=== PATIENT | female | born 1955 | race Caucasian/White ===

== ENCOUNTER 2021-05-29 13:17 | Observation (INO) | payer MEDICARE, OTHER ==
--- NOTE | 2021-05-29 15:35 | ED ---
General Adult HPI - General Chief complaint: GI Bleed Stated complaint: Abd pain,Constipation Source: patient, RN notes reviewed, old records reviewed Mode of arrival: ambulatory Limitations: no limitations - History of Present Illness Initial comments: 65-year-old female presents with 3 days of bright red rectal bleeding. Patient states that with each bowel movement a proximally 3 times daily she's having bright red blood and clots. Patient states she had a colonoscopy about 15 years ago. She has no previous issues with gastrointestinal bleeding. She does report some generalized abdominal pain and cramping. No measured fever but she's felt chilled. She's had no vomiting. No upper abdominal pain or chest pain. No anticoagulation. - Related Data Home Medications Medication Instructions Recorded Confirmed Chlorthalidone [Hygroton] 25 mg PO DAILY 05/29/21 05/29/21 FLUoxetine HCL 40 mg PO DAILY 05/29/21 05/29/21 Fexofenadine HCl [Luisana Allergy] 180 mg PO DAILY 05/29/21 05/29/21 Levothyroxine Sodium [Synthroid] 50 mcg PO DAILY 05/29/21 05/29/21 Losartan Potassium [Cozaar] 100 mg PO DAILY 05/29/21 05/29/21 Meloxicam 15 mg PO DAILY 05/29/21 05/29/21 Montelukast [Singulair] 10 mg PO HS 05/29/21 05/29/21 Multivitamin/Iron/Folic Acid 1 tab PO DAILY 05/29/21 05/29/21 [Centrum Complete Multivit Tab] Omeprazole [PriLOSEC] 20 mg PO BID 05/29/21 05/29/21 amLODIPine [Norvasc] 5 mg PO DAILY 05/29/21 05/29/21 buPROPion [Wellbutrin] 75 mg PO BID 05/29/21 05/29/21 Allergies Allergy/AdvReac Type Severity Reaction Status Date / Time cefaclor [From [facility]] Allergy Rash/Hives Verified 05/29/21 15:51 Penicillins Allergy Rash/Hives Verified 05/29/21 15:51 Review of Systems ROS Statement: Those systems with pertinent positive or pertinent negative responses have been documented in the HPI. ROS Other: All systems not noted in ROS Statement are negative. Past Medical History Past Medical History: Hypertension History of Any Multi-Drug Resistant Organisms: None Reported Past Surgical History: Cholecystectomy, Hysterectomy, Joint Replacement, Tonsillectomy Past Psychological History: Anxiety, Depression Smoking Status: Never smoker Past Alcohol Use History: Daily Past Drug Use History: None Reported General Exam Limitations: no limitations General appearance: alert, in no apparent distress Head exam: Present: atraumatic, normocephalic Eye exam: Present: normal appearance, PERRL ENT exam: Present: normal exam Neck exam: Present: normal inspection Respiratory exam: Present: normal lung sounds bilaterally. Absent: respiratory distress, wheezes Cardiovascular Exam: Present: regular rate, normal rhythm GI/Abdominal exam: Present: soft, tenderness (Mild tenderness). Absent: distended, guarding, rebound Extremities exam: Present: normal inspection, normal capillary refill. Absent: pedal edema Back exam: Present: normal inspection Neurological exam: Present: alert, oriented X3, CN II-XII intact. Absent: motor sensory deficit Psychiatric exam: Present: normal affect, normal mood Skin exam: Present: warm, dry, intact. Absent: cyanosis, diaphoretic Course Vital Signs 05/29/21 13:49 Temperature 97.4 F L Pulse Rate 94 Respiratory 18 Rate Blood Pressure 132/70 O2 Sat by Pulse 99 Oximetry Medical Decision Making - Medical Decision Making 65-year-old female presenting with multiple episodes of bright red rectal bleeding. Patient does have some abdominal pain, CT is performed showing diverticulosis, no other acute findings. Patient has a hemoglobin 10.6. She has a sodium 127. Hemoglobin will be monitored closely, repeat has been ordered. She will be admitted to internal medicine with gastric neurology on consultation. Case discussed with Connie huertas for [facility]. - Lab Data Result diagrams: 05/29/21 15:47 05/29/21 15:47 Lab Results 05/29/21 05/29/21 05/29/21 Range/Units 15:46 15:47 15:47 WBC 9.7 (3.8-10.6) k/uL RBC 3.10 L (3.80-5.40) m/uL Hgb 10.6 L (11.4-16.0) gm/dL Hct 31.0 L (34.0-46.0) % MCV 99.8 (80.0-100.0) fL MCH 34.1 (25.0-35.0) pg MCHC 34.1 (31.0-37.0) g/dL RDW 12.1 (11.5-15.5) % Plt Count 331 (150-450) k/uL MPV 8.4 Neutrophils % 70 % Lymphocytes % 18 % Monocytes % 5 % Eosinophils % 4 % Basophils % 0 % Neutrophils # 6.8 (1.3-7.7) k/uL Lymphocytes # 1.8 (1.0-4.8) k/uL Monocytes # 0.5 (0-1.0) k/uL Eosinophils # 0.4 (0-0.7) k/uL Basophils # 0.0 (0-0.2) k/uL PT 10.1 (9.0-12.0) sec INR 0.9 (<1.2) APTT 16.4 L (22.0-30.0) sec Sodium (137-145) mmol/L Potassium (3.5-5.1) mmol/L Chloride (98-107) mmol/L Carbon Dioxide (22-30) mmol/L Anion Gap mmol/L BUN (7-17) mg/dL Creatinine (0.52-1.04) mg/dL Est GFR (CKD-EPI)AfAm (>60 ml/min/1.73 sqM) Est GFR (CKD-EPI)NonAf (>60 ml/min/1.73 sqM) Glucose (74-99) mg/dL Plasma Lactic Acid Patel (0.7-2.0) mmol/L Calcium (8.4-10.2) mg/dL Magnesium (1.6-2.3) mg/dL Total Bilirubin (0.2-1.3) mg/dL AST (14-36) U/L ALT (4-34) U/L Alkaline Phosphatase (38-126) U/L Total Protein (6.3-8.2) g/dL Albumin (3.5-5.0) g/dL Blood Type AB Positive Blood Type Confirm Blood Type Recheck Bld Type Recheck Status Antibody Screen NEGATIVE Spec Expiration Date 05/29/21 05/29/21 05/29/21 Range/Units 15:47 15:47 15:47 WBC (3.8-10.6) k/uL RBC (3.80-5.40) m/uL Hgb (11.4-16.0) gm/dL Hct (34.0-46.0) % MCV (80.0-100.0) fL MCH (25.0-35.0) pg MCHC (31.0-37.0) g/dL RDW (11.5-15.5) % Plt Count (150-450) k/uL MPV Neutrophils % % Lymphocytes % % Monocytes % % Eosinophils % % Basophils % % Neutrophils # (1.3-7.7) k/uL Lymphocytes # (1.0-4.8) k/uL Monocytes # (0-1.0) k/uL Eosinophils # (0-0.7) k/uL Basophils # (0-0.2) k/uL PT (9.0-12.0) sec INR (<1.2) APTT (22.0-30.0) sec Sodium 127 L (137-145) mmol/L Potassium 3.8 (3.5-5.1) mmol/L Chloride 94 L (98-107) mmol/L Carbon Dioxide 21 L (22-30) mmol/L Anion Gap 12 mmol/L BUN 28 H (7-17) mg/dL Creatinine 1.04 (0.52-1.04) mg/dL Est GFR (CKD-EPI)AfAm 65 (>60 ml/min/1.73 sqM) Est GFR (CKD-EPI)NonAf 56 (>60 ml/min/1.73 sqM) Glucose 114 H (74-99) mg/dL Plasma Lactic Acid Patel 1.3 (0.7-2.0) mmol/L Calcium 9.8 (8.4-10.2) mg/dL Magnesium 1.7 (1.6-2.3) mg/dL Total Bilirubin 0.6 (0.2-1.3) mg/dL AST 41 H (14-36) U/L ALT 32 (4-34) U/L Alkaline Phosphatase 85 (38-126) U/L Total Protein 7.5 (6.3-8.2) g/dL Albumin 4.5 (3.5-5.0) g/dL Blood Type Blood Type Confirm Blood Type Recheck No Previous Record Bld Type Recheck Status CABO Indicated Antibody Screen Spec Expiration Date 06/01/2021234605/29/21 Range/Units 15:48 WBC (3.8-10.6) k/uL RBC (3.80-5.40) m/uL Hgb (11.4-16.0) gm/dL Hct (34.0-46.0) % MCV (80.0-100.0) fL MCH (25.0-35.0) pg MCHC (31.0-37.0) g/dL RDW (11.5-15.5) % Plt Count (150-450) k/uL MPV Neutrophils % % Lymphocytes % % Monocytes % % Eosinophils % % Basophils % % Neutrophils # (1.3-7.7) k/uL Lymphocytes # (1.0-4.8) k/uL Monocytes # (0-1.0) k/uL Eosinophils # (0-0.7) k/uL Basophils # (0-0.2) k/uL PT (9.0-12.0) sec INR (<1.2) APTT (22.0-30.0) sec Sodium (137-145) mmol/L Potassium (3.5-5.1) mmol/L Chloride (98-107) mmol/L Carbon Dioxide (22-30) mmol/L Anion Gap mmol/L BUN (7-17) mg/dL Creatinine (0.52-1.04) mg/dL Est GFR (CKD-EPI)AfAm (>60 ml/min/1.73 sqM) Est GFR (CKD-EPI)NonAf (>60 ml/min/1.73 sqM) Glucose (74-99) mg/dL Plasma Lactic Acid Patel (0.7-2.0) mmol/L Calcium (8.4-10.2) mg/dL Magnesium (1.6-2.3) mg/dL Total Bilirubin (0.2-1.3) mg/dL AST (14-36) U/L ALT (4-34) U/L Alkaline Phosphatase (38-126) U/L Total Protein (6.3-8.2) g/dL Albumin (3.5-5.0) g/dL Blood Type Blood Type Confirm AB Positive Blood Type Recheck Bld Type Recheck Status Antibody Screen Spec Expiration Date Disposition Clinical Impression: Gastrointestinal hemorrhage Disposition: ADMITTED IP TO THIS [facility] Condition: Stable Is patient prescribed a controlled substance at d/c from ED?: No Referrals: None,Stated [Primary Care Provider] - 1-2 days Decision to Admit Reason: Admit from EC Decision Date: 05/29/21 Decision Time: 18:07
[2021-05-29 16:05] LABS: Basophils % (A) 0 %; Eosinophils # (A) 0.4 k/uL (0-0.7); Eosinophils % (A) 4 %; HGB 10.6 gm/dL (11.4-16.0); Lymphocytes # (A) 1.8 k/uL (1.0-4.8); Lymphocytes % (A) 18 %; MCH 34.1 pg (25.0-35.0); MCHC 34.1 g/dL (31.0-37.0); MCV 99.8 fL (80.0-100.0); Mean Platelet Volume 8.4; Monocytes # (A) 0.5 k/uL (0-1.0); Monocytes % (A) 5 %; Neutrophils # (A) 6.8 k/uL (1.3-7.7); Neutrophils % (A) 70 %; Platelet Count 331 k/uL (150-450); RDW 12.1 % (11.5-15.5); WBC 9.7 k/uL (3.8-10.6)
[2021-05-29 16:16] LABS: Albumin 4.5 g/dL (3.5-5.0); Calcium 9.8 mg/dL (8.4-10.2); Magnesium 1.7 mg/dL (1.6-2.3); Potassium 3.8 mmol/L (3.5-5.1); Total Bilirubin 0.6 mg/dL (0.2-1.3); Total Protein 7.5 g/dL (6.3-8.2)
[2021-05-29 16:22] LABS: INR 0.9 (<1.2); Prothrombin Time 10.1 sec (9.0-12.0)
[2021-05-29 16:26] LABS: Partial Thromboplastin Time 16.4 sec (22.0-30.0)
[2021-05-29] MEDS ORDERED: PANTOPRAZOLE 40 MG/10 ML VIAL IVP STA (16:39)
[2021-05-29] MEDS ORDERED: SODIUM CHLORIDE 0.9% 500 ML 500 ML IV ONE (16:39)
[2021-05-29] MEDS: SODIUM CHLORIDE 0.9% 1,000 ML IV SCH (17:25)
--- NOTE | 2021-05-29 17:58 | CT ---
EXAMINATION TYPE: CT abdomen pelvis wo/w con DATE OF EXAM: 05/29/2021 COMPARISON: None INDICATION: Passing blood in stool for 3 days. DLP: 2154.1 mGycm, Automated exposure control for dose reduction was used. CONTRAST: 100 mL of Isovue 300. Study performed without Oral Contrast TECHNIQUE: Axial images were obtained from above the diaphragm to the pubic rami in the axial plane a t 5 mm thick sections. Reconstructed images are reviewed on the computer in the coronal plane. FINDINGS: Limited CT sections are obtained the lung bases. The lung bases are clear. CT ABDOMEN: Liver: Normal Spleen: Normal Pancreas: Normal Adrenal glands: The adrenal glands are normal. Gallbladder: Surgically absent Kidneys: No masses are evident. No hydronephrosis is present. No cysts are present. No renal stone s are evident. Aorta: Minimal Vascular calcification is within the aorta. Inferior vena cava: Normal. CT PELVIS: Loops of bowel within the abdomen and pelvis are normal. Note is made of diverticulosis without evide nce of acute diverticulitis. No suspicious bowel wall thickening is evident. The study is perform ed without oral contrast limiting bowel evaluation. Appendix: Not identified Urinary bladder: Decompressed with limited evaluation Genitourinary structures: Uterus and ovaries are not identified Osseous structures: No suspicious lytic or sclerotic lesions. Facet hypertrophy is present. IMPRESSIONS: 1. Diverticulosis without acute diverticulitis.
[2021-05-29] MEDS ORDERED: NALOXONE 0.4 MG/ML 1 ML VIAL IV PRN (18:05)
[2021-05-29 23:24] LABS: Basophils % (A) 1 %; Eosinophils # (A) 0.4 k/uL (0-0.7); Eosinophils % (A) 5 %; HCT 24.5 % (34.0-46.0); Lymphocytes # (A) 2.2 k/uL (1.0-4.8); Lymphocytes % (A) 26 %; MCH 33.4 pg (25.0-35.0); MCHC 33.9 g/dL (31.0-37.0); MCV 98.6 fL (80.0-100.0); Mean Platelet Volume 7.1; Monocytes # (A) 0.4 k/uL (0-1.0); Monocytes % (A) 4 %; Neutrophils # (A) 5.1 k/uL (1.3-7.7); Neutrophils % (A) 61 %; Platelet Count 273 k/uL (150-450); RBC 2.49 m/uL (3.80-5.40); RDW 12.8 % (11.5-15.5); WBC 8.3 k/uL (3.8-10.6)
[2021-05-29 23:28] LABS: HGB 8.3 gm/dL (11.4-16.0)
[2021-05-30] MEDS: PANTOPRAZOLE 40 MG/10 ML VIAL IV SCH (08:22)
[2021-05-30] MEDS: SODIUM CHLORIDE 0.9% 1,000 ML IV SCH ×2 (08:24→20:40)
[2021-05-30 09:39] LABS: Basophils # (A) 0.03 X 10*3/uL (0.00-0.10); Basophils % (A) 0.4 %; Eosinophils # (A) 0.37 X 10*3/uL (0.04-0.35); Eosinophils % (A) 5.4 %; HCT 24.3 % (37.2-46.3); Lymphocytes # (A) 1.74 X 10*3/uL (0.90-5.00); Lymphocytes % (A) 25.4 %; MCH 32.5 pg (27.0-32.0); MCHC 32.9 g/dL (32.0-37.0); MCV 98.8 fL (80.0-97.0); Mean Platelet Volume 10.6 fL (9.5-12.2); Monocytes # (A) 0.57 X 10*3/uL (0.20-1.00); Monocytes % (A) 8.3 %; Neutrophils # (A) 4.09 X 10*3/uL (1.80-7.70); Neutrophils % (A) 59.9 %; Platelet Count 273 X 10*3/uL (140-440); RBC 2.46 X 10*6/uL (4.10-5.20); RDW 12.2 % (11.5-14.5); WBC 6.84 X 10*3/uL (4.50-10.00)
--- NOTE | 2021-05-30 10:31 | P.CONS ---
History of Present Illness - Reason for Consult Consult date: 05/30/21 GI bleed Requesting physician: Chandrakant Phelan - Chief Complaint Rectal bleeding - History of Present Illness This is a 65-year-old female who presented to the emergency department yesterday after having 4 days of bleeding per rectum. She has a past medical historyhypertension and alcohol use. Patient states 4 days ago she started having abdominal maroon to red colored blood from rectum with bowel movements mixed with clots up to 3 times a day. Her last one was yesterday morning. She denies any previous history of a GI bleed. She does believe that she may have had an EGD in the past however she is unsure of the findings. She denied any associated nausea vomiting or abdominal pain associated with the rectal bleeding. She states her last colonoscopy was 10-15 years ago. She denies any use of anticoagulation, however she does take meloxicam daily as well as i buprofen. She had a CT of the abdomen and pelvis that showed diverticulosis without acute diverticulitis. She had a hemoglobin 10.6 which dropped down to 8.3 yesterday with an elevated BUN of 28. Today's labs EPC 6.8 hemoglobin 8.0 hematocrit 24 platelet count 273,000 INR 0.9. Review of Systems REVIEW OF SYSTEMS: CARDIOPULMONARY: No chest pain or shortness of breath. Gastrointestinal: Denies abdominal pain or cramping. No nausea or vomiting. No hematemesis, coffee-ground emesis. rectal bleeding with blood mixed in stool, reports as a maroon to red color with clots up to 3 times a day for last 4 days. GENITOURINARY: No dysuria or hematuria. MUSCULOSKELETAL: Reports normal range of motion., Joint pain. SKIN: No rashes. No jaundice. ENDOCRINE: No chills, fevers. No excessive weight gain or loss. No polydipsia or polyuria. PSYCHIATRIC: Unremarkable. NEUROLOGY: No change in mental status. Denies dizziness, headache. ENT: Vision unremarkable. CONSTITUTIONAL: No recent weight loss. No fever, chills, night sweats. Past Medical History Past Medical History: Hypertension History of Any Multi-Drug Resistant Organisms: None Reported Past Surgical History: Cholecystectomy, Hysterectomy, Joint Replacement, Tonsillectomy Past Anesthesia/Blood Transfusion Reactions: No Reported Reaction Past Psychological History: Anxiety, Depression Smoking Status: Never smoker Past Alcohol Use History: Daily Additional Past Alcohol Use History / Comment(s): pt states she drinks 5-6 beers per day, hasnt drank since sat when bleeding started Past Drug Use History: None Reported Medications and Allergies Home Medications Medication Instructions Recorded Confirmed Type Chlorthalidone [Hygroton] 25 mg PO DAILY 05/29/21 05/29/21 History FLUoxetine HCL 40 mg PO DAILY 05/29/21 05/29/21 History Fexofenadine HCl [Luisana Allergy] 180 mg PO DAILY 05/29/21 05/29/21 History Levothyroxine Sodium [Synthroid] 50 mcg PO DAILY 05/29/21 05/29/21 History Losartan Potassium [Cozaar] 100 mg PO DAILY 05/29/21 05/29/21 History Meloxicam 15 mg PO DAILY 05/29/21 05/29/21 History Montelukast [Singulair] 10 mg PO HS 05/29/21 05/29/21 History Multivitamin/Iron/Folic Acid 1 tab PO DAILY 05/29/21 05/29/21 History [Centrum Complete Multivit Tab] Omeprazole [PriLOSEC] 20 mg PO BID 05/29/21 05/29/21 History amLODIPine [Norvasc] 5 mg PO DAILY 05/29/21 05/29/21 History buPROPion [Wellbutrin] 75 mg PO BID 05/29/21 05/29/21 History Allergies Allergy/AdvReac Type Severity Reaction Status Date / Time cefaclor [From [facility]] Allergy Rash/Hives Verified 05/29/21 15:51 Penicillins Allergy Rash/Hives Verified 05/29/21 15:51 Physical Exam Vitals: Vital Signs Temp Pulse Pulse Resp BP BP Pulse Ox 05/30/21 07:00 98.0 F 85 18 125/70 97 05/30/21 02:00 98.4 F 100 18 124/71 95 05/29/21 21:18 97.6 F 85 16 132/76 99 05/29/21 20:07 98.0 F 05/29/21 19:00 98 18 134/70 97 05/29/21 13:49 97.4 F L 94 18 132/70 99 Intake and Output 05/29/21 05/30/21 05/30/21 22:59 06:59 14:59 Other: Voiding Method Toilet # Voids 1 3 # Bowel Movements 1 Weight 79.379 kg General appearance: The patient is alert, oriented, appears in no acute distress. HET: Head is normocephalic and atraumatic. Conjunctiva pink. Sclera anicteric. Neck: Supple without lymphadenopathy. Trachea midline. Heart: S1 S2. Regular rate and rhythm. Lungs: Clear to auscultation. Abdomen: Soft, epigastric tenderness, nondistended with bowel sounds. No guarding or rigidity. Skin: No rashes. No jaundice. Extremities: Normal skin color and turgor. No pedal edema. Neurological: No focal deficits. Alert and oriented x3. Results CBC & Chem 7: 05/30/21 06:01 05/29/21 15:47 Labs: Abnormal Lab Results - Last 24 Hours (Table) 05/29/21 05/29/21 05/29/21 Range/Units 15:47 15:47 15:47 RBC 3.10 L (3.80-5.40) m/uL Hgb 10.6 L (11.4-16.0) gm/dL Hct 31.0 L (34.0-46.0) % APTT 16.4 L (22.0-30.0) sec Sodium 127 L (137-145) mmol/L Chloride 94 L (98-107) mmol/L Carbon Dioxide 21 L (22-30) mmol/L BUN 28 H (7-17) mg/dL Glucose 114 H (74-99) mg/dL AST 41 H (14-36) U/L 05/29/21 Range/Units 23:08 RBC 2.49 L (3.80-5.40) m/uL Hgb 8.3 L D (11.4-16.0) gm/dL Hct 24.5 L (34.0-46.0) % APTT (22.0-30.0) sec Sodium (137-145) mmol/L Chloride (98-107) mmol/L Carbon Dioxide (22-30) mmol/L BUN (7-17) mg/dL Glucose (74-99) mg/dL AST (14-36) U/L CT scan - abdomen: report reviewed (diverticulosis without acute diverticulitis) Assessment and Plan (1) GI bleed Narrative/Plan: 65-year-old female who presented to the emergency department yesterday with complaints of 4 days of rectal bleeding. Patient states she started having rectal bleeding mixed with her stool along with clots which she reported as maroon to brighter red up to 3 times a day. Last episode was yesterday morning. She denies any previous history of GI bleed. She denies any anticoagulation, she does take NSAIDs regularly including meloxicam 15 mg daily as well as ibuprofen. Last colonoscopy was 10-15 years ago, she states she believes she has had an upper endoscopy however she is unsure of the results and when it last was. She denied any associated nausea vomiting or abdominal pain or cramping. She's been afebrile. On admission she had a hemoglobin of 10.6 with a normochromic normocytic anemia. Hemoglobin dropped to 8.3, with a repeat today of 8.0 elevated P1 at 28. Possible dealing with an upper GI source of blood loss, specially with the chronic use of NSAIDs such as peptic ulcer disease, esophagitis, gastritis, AVM, or other possible etiologies. It was discussed with the patient that source of blood loss could be upper or lower however patient with like to just proceed with an EGD today and if no evidence of GI blood loss will proceed with colonoscopy tomorrow. Current Visit: Yes Status: Acute Code(s): K92.2 - GASTROINTESTINAL HEMORRHAGE, UNSPECIFIED SNOMED Code(s): 68738022 (2) Anemia Current Visit: Yes Status: Acute Code(s): D64.9 - ANEMIA, UNSPECIFIED SNOMED Code(s): 146044720 Plan: 1. Continue symptomatic and supportive care 2. Daily CBC transfuse for hemoglobin less than 7 3. Protonix 40 mg daily 4. Nothing by mouth 5. Discussed with patient it is unclear if this is an upper or lower GI source of blood loss, discussed with patient proceeding with EGD and colonoscopy, however at this time patient would like to proceed with just an EGD and disc ussed that if there is no source of GI blood loss found we would recommend proceeding with colonoscopy tomorrow. Patient is agreeable with plan of care. 6. Proceed with EGD today. Procedure discussed with patient in detail including risks and benefits, patient is willing to proceed. Thank you for this consultation, we will continue to follow Dr. Robert Ny I agree with the dictator's note, documented as a scribe by Mandy Adler.
[2021-05-30 10:56] LABS: Albumin 3.8 g/dL (3.8-4.9); Albumin/Globulin Ratio 1.81 (1.60-3.17); Anion Gap 13.3 mmol/L (4.00-12.00); BUN/Creat Ratio 16.4 Ratio (12.00-20.00); Blood Urea Nitrogen 16.4 mg/dL (9.0-27.0); Calcium 8.8 mg/dL (8.7-10.3); Carbon Dioxide 20.7 mmol/L (21.6-31.8); Globulin 2.1 g/dL (1.6-3.3); Non-African American GFR(CKD) 58.7 (60.0-200.0); Potassium 3.3 mmol/L (3.5-5.5); Total Bilirubin 0.3 mg/dL (0.30-1.20); Total Protein 5.9 g/dL (6.2-8.2)
[2021-05-30] MEDS ORDERED: LIDOCAINE 1% INJ 10MG/ML (20 ML MDV) ONE (12:41)
[2021-05-30] MEDS ORDERED: PROPOFOL 10 MG/ML 20 ML VIAL IV ONE (12:41)
[2021-05-30] MEDS ORDERED: IV FLUID CONTINUATION 1,000 ML IV ONE ×2 (12:42)
--- NOTE | 2021-05-30 12:53 | P.PCN ---
Date of Procedure: 05/30/21 Procedure(s) Performed: BRIEF HISTORY: Patient is a 65-year-old, pleasant, female admitted hospital acute GI bleed. She multiple episodes of dark colored/maroon colored stools for the last 3 days' duration. She has been taking Motrin and meloxicam for degenerative joint disease. She was noted to have mild elevation of the antrum because of clinical suspicion for upper GI source of bleeding she is scheduled for an upper endoscopy today.. PROCEDURE PERFORMED: Esophagogastroduodenoscopy. PREOPERATIVE DIAGNOSIS: Acute GI bleed. IV sedation per anesthesia. PROCEDURE: After informed consent was obtained, the patient was brought into the endoscopy unit. IV sedation was administered by Anesthesia under continuous monitoring. Initially the Olympus GIF-140 video endoscope was inserted into the mouth. Esophagus intubated without any difficulty. It was gradually advanced into the stomach and duodenum and carefully examined. The bulb and the second part of the duodenum appeared normal. The scope at this time was withdrawn to the stomach, adequately insufflated with air, and upon careful examination, mucosa of the antrum, body, cardia and the fundus appeared normal. The scope was then withdrawn into the esophagus. The GE junction was located at 39 cm from the incisors. Small sliding-type well hernia noted The esophagus appeared normal. There were no erosions or ulcerations seen and the patient tolerated the procedure well. IMPRESSION: 1. Small hiatal hernia. 2. No evidence of acute upper GI bleed. RECOMMENDATIONS: The findings of this examination were discussed with the patient from family. Liquid diet today. She'll be scheduled for colonoscopy tomorrow. Monitor CBC daily..
[2021-05-30] MEDS: POTASSIUM CHLORIDE 10 MEQ in WATER FOR INJECTION 1 100ML.BAG IVPB SCH ×4 (15:48→22:14)
--- NOTE | 2021-05-30 15:51 | P.HPIM ---
History of Present Illness 65-year-old present female came in with the complaints of bright red blood for per rectum multiple episodes for last 4 days along with dark stools. Patient was a valid by gastroenterology patient wanted to get a GI endoscopy that's negative patient will undergo colonoscopy. Patient 11 did drop and patient is on meloxicam and Motrin for pain. CTA abdomen and pelvis did show diverticulosis without any diverticulitis. Patient's present hemoglobin is 8. Patient is also hyponatremic and patient is on chlorthalidone for hypertension leading to hyponatremia. REVIEW OF SYSTEMS: CONSTITUTIONAL: No fever, no malaise, no fatigue. HEENT: No recent visual problems or hearing problems. Denied any sore throat. CARDIOVASCULAR: No chest pain, orthopnea, PND, no palpitations, no syncope. PULMONARY: No shortness of breath, no cough, no hemoptysis. GASTROINTESTINAL: As mentioned in HPI NEUROLOGICAL: No headaches, no weakness, no numbness. HEMATOLOGICAL: Denies any bleeding or petechiae. GENITOURINARY: Denies any burning micturition, frequency, or urgency. MUSCULOSKELETAL/RHEUMATOLOGICAL: Denies any joint pain, swelling, or any muscle pain. ENDOCRINE: Denies any polyuria or polydipsia. The rest of the 14-point review of systems is negative. PHYSICAL EXAMINATION: GENERAL: The patient is alert and oriented x3, not in any acute distress. Well developed, well nourished. HEENT: Pupils are round and equally reacting to light. EOMI. No scleral icterus. Does have conjunctival pallor. Normocephalic, atraumatic. No pharyngeal erythema. No thyromegaly. CARDIOVASCULAR: S1 and S2 present. No murmurs, rubs, or gallops. PULMONARY: Chest is clear to auscultation, no wheezing or crackles. ABDOMEN: Soft, nontender, nondistended, normoactive bowel sounds. No palpable organomegaly. MUSCULOSKELETAL: No joint swelling or deformity. EXTREMITIES: No cyanosis, clubbing, or pedal edema. NEUROLOGICAL: Gross neurological examination did not reveal any focal deficits. SKIN: No rashes. Assessment and plan -Acute GI bleed: Unsure of whether patient has a lower GI bleed, patient will undergo upper GI endoscopy that's negative patient will undergo colonoscopy. -Hyponatremia secondary to diuretics that is chlorthalidone which will be held patient will be continued on IV fluids -Hypertension patient will be resumed on the low Keegan hold off on amlodipine, hold off on chlorthalidone as well -Gastroesophageal reflux disease -Depression DVT prophylaxis: Early ambulation Past Medical History Past Medical History: Hypertension History of Any Multi-Drug Resistant Organisms: None Reported Past Surgical History: Cholecystectomy, Hysterectomy, Joint Replacement, Tonsillectomy Past Anesthesia/Blood Transfusion Reactions: No Reported Reaction Past Psychological History: Anxiety, Depression Smoking Status: Never smoker Past Alcohol Use History: Daily Additional Past Alcohol Use History / Comment(s): pt states she drinks 5-6 beers per day, hasnt drank since sat when bleeding started Past Drug Use History: None Reported Medications and Allergies Home Medications Medication Instructions Recorded Confirmed Type Chlorthalidone [Hygroton] 25 mg PO DAILY 05/29/21 05/29/21 History FLUoxetine HCL 40 mg PO DAILY 05/29/21 05/29/21 History Fexofenadine HCl [Luisana Allergy] 180 mg PO DAILY 05/29/21 05/29/21 History Levothyroxine Sodium [Synthroid] 50 mcg PO DAILY 05/29/21 05/29/21 History Losartan Potassium [Cozaar] 100 mg PO DAILY 05/29/21 05/29/21 History Meloxicam 15 mg PO DAILY 05/29/21 05/29/21 History Montelukast [Singulair] 10 mg PO HS 05/29/21 05/29/21 History Multivitamin/Iron/Folic Acid 1 tab PO DAILY 05/29/21 05/29/21 History [Centrum Complete Multivit Tab] Omeprazole [PriLOSEC] 20 mg PO BID 05/29/21 05/29/21 History amLODIPine [Norvasc] 5 mg PO DAILY 05/29/21 05/29/21 History buPROPion [Wellbutrin] 75 mg PO BID 05/29/21 05/29/21 History Allergies Allergy/AdvReac Type Severity Reaction Status Date / Time cefaclor [From [facility]] Allergy Rash/Hives Verified 05/29/21 15:51 Penicillins Allergy Rash/Hives Verified 05/29/21 15:51 Physical Exam Vitals: Vital Signs Temp Pulse Pulse Resp BP BP Pulse Ox 05/30/21 14:07 88 135/84 99 05/30/21 13:53 92 18 132/77 99 05/30/21 13:23 86 132/82 98 05/30/21 13:08 93 134/73 99 05/30/21 07:00 98.0 F 85 18 125/70 97 05/30/21 02:00 98.4 F 100 18 124/71 95 05/29/21 21:18 97.6 F 85 16 132/76 99 05/29/21 20:07 98.0 F 05/29/21 19:00 98 18 134/70 97 Intake and Output 05/30/21 05/30/21 05/30/21 06:59 14:59 22:59 Intake Total 100 Balance 100 Intake: IV 100 Other: Voiding Method Toilet # Voids 3 # Bowel Movements 1 Results CBC & Chem 7: 05/30/21 06:01 05/30/21 06:01 Labs: Abnormal Lab Results - Last 24 Hours (Table) 05/29/21 05/29/21 05/29/21 Range/Units 15:47 15:47 15:47 RBC 3.10 L (3.80-5.40) m/uL Hgb 10.6 L (11.4-16.0) gm/dL Hct 31.0 L (34.0-46.0) % MCV (80.0-97.0) fL MCH (27.0-32.0) pg Eosinophils # (0.04-0.35) X 10*3/uL APTT 16.4 L (22.0-30.0) sec Sodium 127 L (137-145) mmol/L Potassium (3.5-5.5) mmol/L Chloride 94 L (98-107) mmol/L Carbon Dioxide 21 L (22-30) mmol/L Anion Gap (4.00-12.00) mmol/L BUN 28 H (7-17) mg/dL Est GFR (CKD-EPI)NonAf (60.0-200.0) Glucose 114 H (74-99) mg/dL AST 41 H (14-36) U/L Total Protein (6.2-8.2) g/dL 05/29/21 05/30/21 05/30/21 Range/Units 23:08 06:01 06:01 RBC 2.49 L 2.46 L (3.80-5.40) m/uL Hgb 8.3 L D 8.0 L (11.4-16.0) gm/dL Hct 24.5 L 24.3 L (34.0-46.0) % MCV 98.8 H (80.0-97.0) fL MCH 32.5 H (27.0-32.0) pg Eosinophils # 0.37 H (0.04-0.35) X 10*3/uL APTT (22.0-30.0) sec Sodium 133 L (137-145) mmol/L Potassium 3.3 L (3.5-5.5) mmol/L Chloride (98-107) mmol/L Carbon Dioxide 20.7 L (22-30) mmol/L Anion Gap 13.30 H (4.00-12.00) mmol/L BUN (7-17) mg/dL Est GFR (CKD-EPI)NonAf 58.7 L (60.0-200.0) Glucose 126 H (74-99) mg/dL AST (14-36) U/L Total Protein 5.9 L (6.2-8.2) g/dL Thrombosis Risk Factor Assmnt - Choose All That Apply Any of the Below Risk Factors Present?: Yes Each Factor Represents 1 point: Obesity (BMI >25) Other Risk Factors: Yes Each Risk Factor Represents 2 Points: Age 61-74 years Other congenital or acquired thrombophilia - If yes, enter type in comment: No Thrombosis Risk Factor Assessment Total Risk Factor Score: 3 Thrombosis Risk Factor Assessment Level: Moderate Risk
[2021-05-30] MEDS ORDERED: PEG 3350-NA SULF,BICARB,CL/KCL 4,000 ML BOTTLE PO ONE (17:00)
[2021-05-30] MEDS: LACTATED RINGERS 1,000 ML IV SCH (17:44)
[2021-05-30] MEDS: buPROPion 75 MG TAB PO SCH (20:40)
[2021-05-30] MEDS ORDERED: MONTELUKAST 10 MG TAB PO SCH (21:00)
[2021-05-30] MEDS ORDERED: ONDANSETRON 4 MG/2 ML VIAL IVP PRN (21:38)
[2021-05-31] MEDS ORDERED: LEVOTHYROXINE 50 MCG TAB PO SCH (06:30)
[2021-05-31 08:01] VITALS: RESP 18
[2021-05-31] MEDS ORDERED: LORATADINE 10 MG TAB PO SCH (09:00)
[2021-05-31] MEDS ORDERED: LOSARTAN 50 MG TAB PO SCH (09:00)
[2021-05-31] MEDS ORDERED: FLUoxetine HCL 20 MG CAP PO SCH (09:00)
[2021-05-31] MEDS: PANTOPRAZOLE 40 MG/10 ML VIAL IV SCH (09:09)
[2021-05-31 09:48] LABS: African American GFR (CKD) 89 (>60 ml/min/1.73 sqM); Anion Gap 7 mmol/L; Blood Urea Nitrogen 6 mg/dL (7-17); Carbon Dioxide 28 mmol/L (22-30); Chloride 97 mmol/L (98-107); Glucose 136 mg/dL (74-99); Non-African American GFR(CKD) 77 (>60 ml/min/1.73 sqM); Potassium 3.1 mmol/L (3.5-5.1); Sodium 132 mmol/L (137-145)
[2021-05-31] MEDS ORDERED: Potassium Replacement Protocol 1 EACH MISC MISCELLANE PRN (10:47)
[2021-05-31] MEDS ORDERED: POTASSIUM CHLORIDE 10 MEQ in WATER FOR INJECTION 1 100ML.BAG IVPB SCH (11:00)
[2021-05-31] MEDS ORDERED: LACTATED RINGERS 1,000 ML IV SCH (11:30)
--- NOTE | 2021-05-31 11:57 | P.PN ---
Subjective Progress Note Date: 05/31/21 65-year-old present female came in with the complaints of bright red blood for per rectum multiple episodes for last 4 days along with dark stools. Patient was a valid by gastroenterology patient wanted to get a GI endoscopy that's negative patient will undergo colonoscopy. Patient 11 did drop and patient is on meloxicam and Motrin for pain. CTA abdomen and pelvis did show diverticulosis without any diverticulitis. Patient's present hemoglobin is 8. Patient is also hyponatremic and patient is on chlorthalidone for hypertension leading to hyponatremia. 05/31/2021 Patient is evaluated today resting the bed. She did complete a bowel prep for a colonoscopy today. Sodium today is 132, potassium 3.1. Patient denies any nausea or vomiting or abdominal pain. Her blood pressure today is 123/72, she is afebrile room air. Patient underwent an upper endoscopy on May 30 which showed small hiatal hernia no evidence of acute upper GI bleed. ROS Constitutional: Denied any fatigue denied any fever. Cardio vascular: denied any chest pain, palpitations Gastrointestinal denied any nausea vomiting, denies blood in stool currently Pulmonary: Denied any shortness of breath cough Neurologic denied any new focal deficits All inpatient medications were reviewed and appropriate changes in these medications as dictated in the interval history and assessment and plan. PHYSICAL EXAMINATION: GENERAL: The patient is alert and oriented x3, not in any acute distress. Well developed, well nourished. HEENT: Pupils are round and equally reacting to light. EOMI. No scleral icterus. Does have conjunctival pallor. Normocephalic, atraumatic. No pharyngeal erythema. No thyromegaly. CARDIOVASCULAR: S1 and S2 present. No murmurs, rubs, or gallops. PULMONARY: Chest is clear to auscultation, no wheezing or crackles. ABDOMEN: Soft, nontender, nondistended, normoactive bowel sounds. No palpable organomegaly. MUSCULOSKELETAL: No joint swelling or deformity. EXTREMITIES: No cyanosis, clubbing, or pedal edema. NEUROLOGICAL: Gross neurological examination did not reveal any focal deficits. SKIN: No rashes. Assessment and plan -Acute GI bleed: Upper endoscopy negative for acute GI bleed, colonoscopy today. -Hyponatremia secondary to diuretics that is chlorthalidone which will be held patient will be continued on IV fluids, 132 today -Hypokalemia secondary to bowel prep and poor oral intake, replace per protocol recheck tomorrow -Hypertension patient will be resumed on the losartan hold off on amlodipine, hold off on chlorthalidone as well -Gastroesophageal reflux disease -Depression DVT prophylaxis: Early ambulation GI Prophylaxis: Protonix Objective - Vital Signs Vital signs: Vital Signs Temp 97.7 F 05/31/21 07:00 Pulse 95 05/31/21 07:00 Resp 18 05/31/21 07:00 BP 123/72 05/31/21 07:00 Pulse Ox 97 05/31/21 07:00 Intake & Output 05/30/21 05/31/21 05/31/21 18:59 06:59 18:59 Intake Total 280 Balance 280 Intake: IV 100 Oral 180 Other: Voiding Method Toilet # Voids 4 3 # Bowel Movements 1 2 - Labs CBC & Chem 7: 05/30/21 06:01 05/31/21 08:56 Labs: Abnormal Lab Results - Last 24 Hours (Table) 05/31/21 Range/Units 08:56 Sodium 132 L (137-145) mmol/L Potassium 3.1 L (3.5-5.1) mmol/L Chloride 97 L (98-107) mmol/L BUN 6 L (7-17) mg/dL Glucose 136 H (74-99) mg/dL Assessment and Plan Time with Patient: Greater than 30
[2021-05-31] MEDS ORDERED: LIDOCAINE 1% INJ 10MG/ML (20 ML MDV) ONE (12:27)
[2021-05-31] MEDS ORDERED: PROPOFOL 10 MG/ML 20 ML VIAL IV ONE (12:27)
[2021-05-31] MEDS ORDERED: IV FLUID CONTINUATION 1,000 ML IV ONE (12:31)
[2021-05-31] MEDS ORDERED: SODIUM CHLORIDE 0.9% 1,000 ML IV ONE (12:47)
--- NOTE | 2021-05-31 12:49 | P.PCN ---
Date of Procedure: 05/31/21 Procedure(s) Performed: BRIEF HISTORY: Patient is a 65-year-old pleasant female scheduled for an colonoscopy as a part of evaluation of acute GI bleed. She presents to the hospital with multiple episodes of maroon-colored stools and dropped hemoglobin to 8 g/dL. She had an upper endoscopy yesterday that was unremarkable. PROCEDURE PERFORMED: Colonoscopy. PREOPERATIVE DIAGNOSIS: Acute GI bleed and negative upper endoscopy yesterday.. IV sedation per Anesthesia. PROCEDURE: After informed consent was obtained, the patient, was brought into the endoscopy unit. IV sedation was administered by Anesthesia under continuous monitoring. Digital rectal examination was normal. Initially the Olympus CF-160 flexible video colonoscope was then inserted in the rectum, gradually advanced into the cecum without any difficulty. Careful examination was performed as the scope was gradually being withdrawn. Ileocecal valve and the appendiceal orifice were visualized and appeared normal. Prep was excellent. No active bleeding noted. Mucosa of the cecum, ascending colon, transverse colon, descending c olon, sigmoid colon, and rectum appeared normal. Moderate sigmoid diverticulosis seen. Retroflexion was performed in the rectum and no lesions were seen. The patient tolerated the procedure well. IMPRESSION: Normal-appearing colon from rectum to cecum with no evidence of colorectal neoplasia . Moderate diffuse diverticulosis but no evidence of active bleeding RECOMMENDATIONS: Findings of this examination were discussed with the patient. Was slightly the recent episode of bleeding was diverticular in nature which has spontaneously resolved. Diet will be advanced as tolerated and she can be discharged home today.
[2021-05-31] MEDS: buPROPion 75 MG TAB PO SCH (13:15)
[2021-05-31 13:16] VITALS: TEMP 97.5
[2021-05-31] MEDS: LACTATED RINGERS 1,000 ML IV SCH (13:16)
[2021-05-31] MEDS: POTASSIUM CHLORIDE ER 20 MEQ TAB.ER PO SCH ×2 (13:53→15:16)
[2021-05-31 14:57] VITALS: BP 120/71; PULSE 102
--- NOTE | 2021-05-31 21:56 | P.DS ---
Providers Date of admission: 05/29/21 18:05 Attending physician: Chandrakant Phelan Consults: 05/29/21 18:05 Consult Physician Routine Consulting Provider: Kristal Ny Consult Reason/Comments: Gi bleed Do you want consulting provider notified?: Yes Primary care physician: Stated None Hospital Course: Final Diagnosis -Acute GI bleed due to bleeding diverticula with spontaneous resolution -Hyponatremia secondary to diuretics -Hypokalemia secondary to bowel prep and poor oral intake -Hypertension -Gastroesophageal reflux disease -Depression -daily alcohol abuse Discharge Disposition Patient is discharged home and will follow up with GI services. She recently moved to [place] from out of [facility] and currently does not have a PCP. We referred her to Dr Driver, She lives close to the office and has difficulty with transportation. Chlorthalidone was discontinued on discharge due to hyponatremia, losartan was decreased to 50 mg po daily from 100 mg po daily, and we discharged her on oral potassium. Hospital Course This is a pleasant 65 year old female who presented to the with complaints of bright red blood pre rectum for multiple episodes for the last 4 days prior to admission as well as dark stools. Additional past medical history includes hypertension, anxiety, depression, never smoker, admits to drinking 5 to 6 beers per day, cholecystecomy, hysterectomy, joint replacement, and tonsillectomy. Patient was evaluated by GI, who completed an upper endoscopy that was negative for a source of acute bleeding. EGD showed small hiatal hernia. She proceeded with a colonoscopy on 05/31/2021 which revealed normal appearing colon from rectum to cecum and there was no evidence of colorectal neoplasia. There was moderate diffuse diverticulosis. GI services felt the episode of acute bleeding was mostly related to a bleeding diverticula that had spontaneously resolved. Hemoglobin on admission was 11, patent was taking meloxicam and motrin for pain at home. CTA abdomen and pelvis showed diverticulosis without diverticulitis. Hgb on 05/30/2021 was 8. Sodium on admission was 127, we did stop the chlorthalidone which was probably the source of hyponatremia. Additional labs include potassium initially 3.8, did drop to 3.1 after bowel prep and scope. Glucose is mildly elevated 114, 136. Recommend following up outpatient with an A1C. COVID PCR was not detected. Vital signs showed a temp of 97.5, blood pressure of 120/71, heart rate 88 normal sinus rhythm, and she is 100% on room air. 05/31/2021 Patient is discharged from GI services s/p colonoscopy. She is AO x4, ambulating without difficulty. She denies nausea, vomiting, or diarrhea. She is tolerating diet fine. Lungs are clear to auscultation, s1 and s2 are present, regular rate and rhythm, focal neurological exam is within normal limits. Did discuss the importance of alcohol cessation with patient. Please see medication reconciliation for a list of current medications. Thank you for allowing us to participate in the care of this patient. Patient Condition at Discharge: Stable Plan - Discharge Summary Discharge Rx Participant: Yes New Discharge Prescriptions: New Potassium Chloride ER [K-Dur 20] 20 meq PO DAILY #14 tab Losartan [Cozaar] 50 mg PO DAILY #30 tab Continue Meloxicam 15 mg PO DAILY Fexofenadine HCl [Luisana Allergy] 180 mg PO DAILY FLUoxetine HCL 40 mg PO DAILY buPROPion [Wellbutrin] 75 mg PO BID amLODIPine [Norvasc] 5 mg PO DAILY Multivitamin/Iron/Folic Acid [Centrum Complete Multivit Tab] 1 tab PO DAILY Omeprazole [PriLOSEC] 20 mg PO BID Montelukast [Singulair] 10 mg PO HS Levothyroxine Sodium [Synthroid] 50 mcg PO DAILY Discontinued Chlorthalidone [Hygroton] 25 mg PO DAILY Discharge Medication List FLUoxetine HCL 40 mg PO DAILY 05/29/21 [History] Fexofenadine HCl [Luisana Allergy] 180 mg PO DAILY 05/29/21 [History] Levothyroxine Sodium [Synthroid] 50 mcg PO DAILY 05/29/21 [History] Meloxicam 15 mg PO DAILY 05/29/21 [History] Montelukast [Singulair] 10 mg PO HS 05/29/21 [History] Multivitamin/Iron/Folic Acid [Centrum Complete Multivit Tab] 1 tab PO DAILY 05/29/21 [History] Omeprazole [PriLOSEC] 20 mg PO BID 05/29/21 [History] amLODIPine [Norvasc] 5 mg PO DAILY 05/29/21 [History] buPROPion [Wellbutrin] 75 mg PO BID 05/29/21 [History] Losartan [Cozaar] 50 mg PO DAILY #30 tab 05/31/21 [Rx] Potassium Chloride ER [K-Dur 20] 20 meq PO DAILY #14 tab 05/31/21 [Rx] Follow up Appointment(s)/Referral(s): Rohan Driver MD [STAFF PHYSICIAN] - 06/05/21 2:30 pm (Bring ID and insurance cards) Kristal Ny MD [STAFF PHYSICIAN] - 07/23/21 2:00 pm (Office will place on cancellation list for a sooner appointment) Ambulatory/Diagnostic Orders: Basic Metabolic Panel [LAB.AMB] Time Frame: 2 Days, Location: None Selected Complete Blood Count w/diff [LAB.AMB] Time Frame: 2 Days, Location: None Selected Patient Instructions/Handouts: *Surgery [facility] - (Anesthesia) Endoscopy Discharge Instructions, Diverticulosis (DC), Colonoscopy (DC) Discharge Disposition: HOME SELF-CARE
== END 2021-05-31 16:13 | disposition home or self-care (01) ==
LOC: EC 13:17 → 6NMEDSUR 18:05
PROVIDERS: ADMIT Hospitalist; ATTEND Hospitalist
DX: K57.31 Diverticulosis of large intestine without perforation or abscess with bleeding (principal); T50.2X5A Adverse effect of carbonic-anhydrase inhibitors, benzothiadiazides and other diuretics, initial encounter; E87.1 Hypo-osmolality and hyponatremia; E87.6 Hypokalemia; I10 Essential (primary) hypertension; K21.9 Gastro-esophageal reflux disease without esophagitis; F32.9 Major depressive disorder, single episode, unspecified; F10.10 Alcohol abuse, uncomplicated; F41.9 Anxiety disorder, unspecified; D64.9 Anemia, unspecified; M19.90 Unspecified osteoarthritis, unspecified site; K44.9 Diaphragmatic hernia without obstruction or gangrene; R73.01 Impaired fasting glucose; E66.9 Obesity, unspecified; Z68.31 Body mass index [BMI] 31.0-31.9, adult; R94.4 Abnormal results of kidney function studies; K59.00 Constipation, unspecified; Z20.822 Contact with and (suspected) exposure to COVID-19; Z79.899 Other long term (current) drug therapy; Z79.890 Hormone replacement therapy; Z79.1 Long term (current) use of non-steroidal anti-inflammatories (NSAID); Z88.0 Allergy status to penicillin; Z88.1 Allergy status to other antibiotic agents; Z90.49 Acquired absence of other specified parts of digestive tract; Z90.710 Acquired absence of both cervix and uterus; Z71.41 Alcohol abuse counseling and surveillance of alcoholic
CPT/HCPCS: 96361 ×3; 96374; 99285; 36415; 86900; 86901; 80053 ×2; 80048; 83605; 83735; 85025 ×2; 85610; 85730; 86850; 87635; 74178; 45378; 43235; G0378 ×3; J2405; J2001 ×2; J3480 ×2; J2704 ×2; C9113 ×3; Q9967

== ENCOUNTER → 2021-06-02 | Outpatient (CLI) | payer MEDICARE, OTHER ==
[2021-06-02 17:00] LABS: Basophils # (A) 0.03 X 10*3/uL (0.00-0.10); Basophils % (A) 0.5 %; Eosinophils # (A) 0.31 X 10*3/uL (0.04-0.35); Eosinophils % (A) 4.7 %; HCT 24.3 % (37.2-46.3); HGB 7.7 g/dL (12.0-15.0); Lymphocytes # (A) 1.67 X 10*3/uL (0.90-5.00); Lymphocytes % (A) 25.5 %; MCH 32.2 pg (27.0-32.0); MCHC 31.7 g/dL (32.0-37.0); MCV 101.7 fL (80.0-97.0); Mean Platelet Volume 9.7 fL (9.5-12.2); Monocytes # (A) 0.48 X 10*3/uL (0.20-1.00); Monocytes % (A) 7.3 %; Neutrophils # (A) 4.04 X 10*3/uL (1.80-7.70); Neutrophils % (A) 61.5 %; Platelet Count 338 X 10*3/uL (140-440); RBC 2.39 X 10*6/uL (4.10-5.20); RDW 12.2 % (11.5-14.5); WBC 6.56 X 10*3/uL (4.50-10.00)
[2021-06-02 18:02] LABS: African American GFR (CKD) 73.9 (60.0-200.0); Anion Gap 13.5 mmol/L (4.00-12.00); BUN/Creat Ratio 11.36 Ratio (12.00-20.00); Blood Urea Nitrogen 10.6 mg/dL (9.0-27.0); Calcium 9.3 mg/dL (8.7-10.3); Carbon Dioxide 22.3 mmol/L (21.6-31.8); Non-African American GFR(CKD) 63.8 (60.0-200.0); Potassium 3.6 mmol/L (3.5-5.5)
== END | disposition home or self-care (01) ==
LOC: LABWHC1 10:50
PROVIDERS: ATTEND Nurse Practitioner Family
DX: D64.9 Anemia, unspecified (principal)
CPT/HCPCS: 36415; 80048; 85025

== ENCOUNTER 2021-06-07 16:46 | Emergency (ER) | payer MEDICARE, OTHER ==
[2021-06-07 17:45] LABS: Basophils % (A) 0 %; Eosinophils # (A) 0.2 k/uL (0-0.7); Eosinophils % (A) 3 %; HCT 24.8 % (34.0-46.0); HGB 8.2 gm/dL (11.4-16.0); Lymphocytes % (A) 16 %; MCH 32.3 pg (25.0-35.0); MCV 97.7 fL (80.0-100.0); Mean Platelet Volume 7.1; Monocytes # (A) 0.3 k/uL (0-1.0); Monocytes % (A) 5 %; Neutrophils # (A) 4.9 k/uL (1.3-7.7); Neutrophils % (A) 74 %; Platelet Count 434 k/uL (150-450); RBC 2.54 m/uL (3.80-5.40); RDW 12.9 % (11.5-15.5); WBC 6.6 k/uL (3.8-10.6)
[2021-06-07 18:00] LABS: ALT 22 U/L (4-34); AST 28 U/L (14-36); African American GFR (CKD) >90 (>60 ml/min/1.73 sqM); Albumin 3.9 g/dL (3.5-5.0); Alkaline Phosphatase 88 U/L (38-126); Anion Gap 8 mmol/L; Blood Urea Nitrogen 11 mg/dL (7-17); Calcium 9.4 mg/dL (8.4-10.2); Carbon Dioxide 22 mmol/L (22-30); Chloride 97 mmol/L (98-107); Glucose 128 mg/dL (74-99); Non-African American GFR(CKD) 81 (>60 ml/min/1.73 sqM); Potassium 4.3 mmol/L (3.5-5.1); Sodium 127 mmol/L (137-145); Total Bilirubin 0.4 mg/dL (0.2-1.3); Total Protein 6.6 g/dL (6.3-8.2)
[2021-06-07 18:04] LABS: Prothrombin Time 10.4 sec (9.0-12.0)
[2021-06-07 18:07] LABS: Partial Thromboplastin Time 21.2 sec (22.0-30.0)
[2021-06-07] MEDS ORDERED: SODIUM CHLORIDE 0.9% 1,000 ML IV STA (18:53)
[2021-06-07] MEDS ORDERED: ONDANSETRON 4 MG/2 ML VIAL IVP STA (18:54)
--- NOTE | 2021-06-07 19:03 | ED ---
General Adult HPI - General Chief complaint: Weakness Stated complaint: weakness Time Seen by Provider: 06/07/21 18:45 Source: patient Mode of arrival: ambulatory Limitations: no limitations - History of Present Illness Initial comments: Dictation was produced using [employer] dictation software. please excuse any grammatical, word or spelling errors. Chief Complaint: 65-year-old female brought to the emergency department for several days of weakness History of Present Illness: 65-year-old female she states she was recently admitted to the hospital for low hemoglobin. Patient was told by her prior care doctor that she also has elevated kidney function. Patient was here in emergency department last week. She was admitted for acute GI bleed with bleeding diverticula and spontaneous resolution. She received a colonoscopy and had stable labs. Patient states that over the last couple days she's been feeling weak. She has been able to perform activities of daily living however. She called EMS and brought to the emergency department. Patient denies any GI bleed. Denies any nausea or vomiting. No pain complaints. No shortness of breath. The ROS documented in this emergency department record has been reviewed and con firmed by me. Those systems with pertinent positive or negative responses have been documented in the HPI. All other systems are other negative and/or noncontributory. PHYSICAL EXAM: General Impression: Alert and oriented x3, not in acute distress HEENT: Normocephalic atraumatic, extra-ocular movements intact, pupils equal and reactive to light bilaterally, mucous membranes moist. Cardiovascular: Heart regular rate and rhythm Chest: Able to complete full sentences, no retractions, no tachypnea Abdomen: abdomen soft, non-tender, non-distended, no organomegaly Musculoskeletal: Pulses present and equal in all extremities, no peripheral edema Motor: no focal deficits noted Neurological: CN II-XII grossly intact, no focal motor or sensory deficits noted Skin: Intact with no visualized rashes Psych: Normal affect and mood ED course: 65-year-old female presents emergency department for generalized weakness. Vital signs upon arrival are within acceptable limits. Physical exam is nonlocalizing. She does appear to be well-hydrated well perfused. She is in no acute distress. Return evaluation obtained. Hemoglobin stable at 8.2. Her last hemoglobin was for 5 days ago 7.7. This is clearly much improved. Coag panel is unremarkable. Sodium is 127. Patient does use diuretics. She has history of low sodium. Rest metabolic panel is unremarkable. Patient case discussed with Lucia anna in department [employer]. She will send a referral for visiting home nurse on behalf of the patient. Patient reevaluated at bedside at 8:52 PM found to be stable medical condition. She is able to without intoxication. She is agreeable with plan. - Related Data Home Medications Medication Instructions Recorded Confirmed FLUoxetine HCL 40 mg PO DAILY 05/29/21 06/07/21 Fexofenadine HCl [Luisana Allergy] 180 mg PO DAILY 05/29/21 06/07/21 Levothyroxine Sodium [Synthroid] 50 mcg PO DAILY 05/29/21 06/07/21 Meloxicam 15 mg PO DAILY 05/29/21 06/07/21 Montelukast [Singulair] 10 mg PO HS 05/29/21 06/07/21 Multivitamin/Iron/Folic Acid 1 tab PO DAILY 05/29/21 06/07/21 [Centrum Complete Multivit Tab] Omeprazole [PriLOSEC] 20 mg PO BID 05/29/21 06/07/21 amLODIPine [Norvasc] 5 mg PO DAILY 05/29/21 06/07/21 buPROPion [Wellbutrin] 75 mg PO BID 05/29/21 06/07/21 Ibuprofen [Motrin] 800 mg PO Q6H PRN 06/07/21 06/07/21 Previous Rx's Medication Instructions Recorded Losartan [Cozaar] 50 mg PO DAILY #30 tab 05/31/21 Potassium Chloride ER [K-Dur 20] 20 meq PO DAILY #14 tab 05/31/21 Allergies Allergy/AdvReac Type Severity Reaction Status Date / Time cefaclor [From Ceclor] Allergy Rash/Hives Verified 06/07/21 17:23 Penicillins Allergy Rash/Hives Verified 06/07/21 17:23 Review of Systems ROS Statement: Those systems with pertinent positive or pertinent negative responses have been documented in the HPI. ROS Other: All systems not noted in ROS Statement are negative. Past Medical History Past Medical History: Hypertension History of Any Multi-Drug Resistant Organisms: None Reported Past Surgical History: Cholecystectomy, Hysterectomy, Joint Replacement, Tonsillectomy Past Anesthesia/Blood Transfusion Reactions: No Reported Reaction Past Psychological History: Anxiety, Depression Smoking Status: Never smoker Past Alcohol Use History: Daily Past Drug Use History: None Reported General Exam Limitations: no limitations Course Vital Signs 06/07/21 16:50 Temperature 98.2 F Pulse Rate 95 Respiratory 16 Rate Blood Pressure 167/79 O2 Sat by Pulse 97 Oximetry Medical Decision Making - Lab Data Result diagrams: 06/07/21 17:33 06/07/21 17:33 Lab Results 06/07/21 06/07/21 06/07/21 Range/Units 17:33 17:33 17:33 WBC 6.6 (3.8-10.6) k/uL RBC 2.54 L (3.80-5.40) m/uL Hgb 8.2 L (11.4-16.0) gm/dL Hct 24.8 L (34.0-46.0) % MCV 97.7 (80.0-100.0) fL MCH 32.3 (25.0-35.0) pg MCHC 33.0 (31.0-37.0) g/dL RDW 12.9 (11.5-15.5) % Plt Count 434 (150-450) k/uL MPV 7.1 Neutrophils % 74 % Lymphocytes % 16 % Monocytes % 5 % Eosinophils % 3 % Basophils % 0 % Neutrophils # 4.9 (1.3-7.7) k/uL Lymphocytes # 1.0 (1.0-4.8) k/uL Monocytes # 0.3 (0-1.0) k/uL Eosinophils # 0.2 (0-0.7) k/uL Basophils # 0.0 (0-0.2) k/uL PT 10.4 (9.0-12.0) sec INR 1.0 (<1.2) APTT 21.2 L (22.0-30.0) sec Sodium (137-145) mmol/L Potassium (3.5-5.1) mmol/L Chloride (98-107) mmol/L Carbon Dioxide (22-30) mmol/L Anion Gap mmol/L BUN (7-17) mg/dL Creatinine (0.52-1.04) mg/dL Est GFR (CKD-EPI)AfAm (>60 ml/min/1.73 sqM) Est GFR (CKD-EPI)NonAf (>60 ml/min/1.73 sqM) Glucose (74-99) mg/dL Plasma Lactic Acid Patel (0.7-2.0) mmol/L Calcium (8.4-10.2) mg/dL Total Bilirubin (0.2-1.3) mg/dL AST (14-36) U/L ALT (4-34) U/L Alkaline Phosphatase (38-126) U/L Troponin I (0.000-0.034) ng/mL Total Protein (6.3-8.2) g/dL Albumin (3.5-5.0) g/dL Urine Color Light Yellow Urine Appearance Clear (Clear) Urine pH 7.5 (5.0-8.0) Ur Specific [place] 1.010 (1.001-1.035) Urine Protein Negative (Negative) Urine Glucose (UA) Negative (Negative) Urine Ketones Negative (Negative) Urine Blood Negative (Negative) Urine Nitrite Negative (Negative) Urine Bilirubin Negative (Negative) Urine Urobilinogen <2.0 (<2.0) mg/dL Ur Leukocyte Esterase Negative (Negative) 06/07/21 06/07/21 06/07/21 Range/Units 17:33 17:33 17:33 WBC (3.8-10.6) k/uL RBC (3.80-5.40) m/uL Hgb (11.4-16.0) gm/dL Hct (34.0-46.0) % MCV (80.0-100.0) fL MCH (25.0-35.0) pg MCHC (31.0-37.0) g/dL RDW (11.5-15.5) % Plt Count (150-450) k/uL MPV Neutrophils % % Lymphocytes % % Monocytes % % Eosinophils % % Basophils % % Neutrophils # (1.3-7.7) k/uL Lymphocytes # (1.0-4.8) k/uL Monocytes # (0-1.0) k/uL Eosinophils # (0-0.7) k/uL Basophils # (0-0.2) k/uL PT (9.0-12.0) sec INR (<1.2) APTT (22.0-30.0) sec Sodium 127 L (137-145) mmol/L Potassium 4.3 (3.5-5.1) mmol/L Chloride 97 L (98-107) mmol/L Carbon Dioxide 22 (22-30) mmol/L Anion Gap 8 mmol/L BUN 11 (7-17) mg/dL Creatinine 0.77 (0.52-1.04) mg/dL Est GFR (CKD-EPI)AfAm >90 (>60 ml/min/1.73 sqM) Est GFR (CKD-EPI)NonAf 81 (>60 ml/min/1.73 sqM) Glucose 128 H (74-99) mg/dL Plasma Lactic Acid Patel 1.0 (0.7-2.0) mmol/L Calcium 9.4 (8.4-10.2) mg/dL Total Bilirubin 0.4 (0.2-1.3) mg/dL AST 28 (14-36) U/L ALT 22 (4-34) U/L Alkaline Phosphatase 88 (38-126) U/L Troponin I <0.012 (0.000-0.034) ng/mL Total Protein 6.6 (6.3-8.2) g/dL Albumin 3.9 (3.5-5.0) g/dL Urine Color Urine Appearance (Clear) Urine pH (5.0-8.0) Ur Specific [place] (1.001-1.035) Urine Protein (Negative) Urine Glucose (UA) (Negative) Urine Ketones (Negative) Urine Blood (Negative) Urine Nitrite (Negative) Urine Bilirubin (Negative) Urine Urobilinogen (<2.0) mg/dL Ur Leukocyte Esterase (Negative) Disposition Clinical Impression: Hyponatremia, Weakness Disposition: HOME SELF-CARE Condition: Fair Instructions (If sedation given, give patient instructions): Hyponatremia (ED) Additional Instructions: Today your sodium was measured to be low. You have chronic low sodium. Please follow up with her primary care doctor for outpatient management of hyponatremia. In the meantime try to increase salt intake with foods. Is patient prescribed a controlled substance at d/c from ED?: No Referrals: Rohan Driver MD [STAFF PHYSICIAN] - 1-2 days
[2021-06-07 20:09] LABS: Appearance,Urine Clear (Clear); Bilirubin,Urine Negative (Negative); Blood,Urine Negative (Negative); Color,Urine Light Yellow; Glucose,Urine (UA) Negative (Negative); Ketones,Urine Negative (Negative); Leukocyte Esterase,Urine Negative (Negative); Nitrite,Urine Negative (Negative); PH, Urine 7.5 (5.0-8.0); Protein,Urine Negative (Negative); Urobilinogen,Urine <2.0 mg/dL (<2.0)
[2021-06-07 22:33] VITALS: BP 158/80; PULSE 91; RESP 20; TEMP 98
[2021-06-08 04:55] LABS: Estimated Average Glucose 99.67
== END 2021-06-07 22:32 | disposition home or self-care (01) ==
LOC: EC 16:46
DX: E87.1 Hypo-osmolality and hyponatremia (principal); I10 Essential (primary) hypertension; Z79.899 Other long term (current) drug therapy; Z20.822 Contact with and (suspected) exposure to COVID-19
CPT/HCPCS: 36415; 80053; 81003; 83036; 83605; 84484; 85025; 85610; 85730; 87636; 96360; 99285

== ENCOUNTER 2021-09-13 14:57 | Emergency (ER) | payer MEDICARE, OTHER ==
[2021-09-13] MEDS ORDERED: LIDOCAINE 5% PATCH TOPICAL STA (15:27)
[2021-09-13] MEDS ORDERED: HYDROcodone/APAP 5-325MG 1 EACH TAB PO STA (15:31)
--- NOTE | 2021-09-13 15:44 | ED ---
General Adult HPI - General Chief complaint: Extremity Injury, Upper Stated complaint: shoulder & neck pain Time Seen by Provider: 09/13/21 15:09 Source: patient Mode of arrival: ambulatory Limitations: no limitations - History of Present Illness Initial comments: Dictation was produced using [employer] dictation software. please excuse any grammatical, word or spelling errors. Chief Complaint: 66-year-old female presents emergency department for left trapezius pain History of Present Illness: Patient is 66-year-old female she has history of chronic left trapezius patient states that her pain is slightly worse than usual. She's been having this pain for several months. She is minimally evaluated by chiropractor however has not been to chiropractors several weeks. Patient just moved here from [place]. She has not established care with a primary care doctor yet. Patient has not taken any analgesics at home. States that the patient is to her left trapezius. Is nonradiating. Worse with movements. Patient has any numbness distally paresthesias to the upper extremities. Patient has no difficulty ambulating. She states she just wants some relief so she can wash her dishes at home. The ROS documented in this emergency department record has been reviewed and confirmed by me. Those systems with pertinent positive or negative responses have been documented in the HPI. All other systems are other negative and/or noncontributory. PHYSICAL EXAM: General Impression: Alert and oriented x3, not in acute distress HEENT: Normocephalic atraumatic, extra-ocular movements intact, pupils equal and reactive to light bilaterally, mucous membranes moist. Cardiovascular: Heart regular rate and rhythm Chest: Able to complete full sentences, no retractions, no tachypnea Abdomen: abdomen soft, non-tender, non-distended, no organomegaly Musculoskeletal: Pulses present and equal in all extremities, no peripheral edema, palpatory tenderness over the left trapezius. There is reproducible pain with palpation, left head turning, left neck side bending her states that she does have some pain midline as well. Motor: no focal deficits noted Neurological: CN II-XII grossly intact, no focal motor or sensory deficits noted Skin: Intact with no visualized rashes Psych: Normal affect and mood ED course: 66-year-old female presents to the emergency department for musculoskeletal neck and left trapezius pain. Vital signs As upon arrival are within acceptable limits. Neurovascularly intact. Patient has no symptoms of radiculopathy. She has no involvement of central nervous system. Computed tomography scan of the C-spine shows no acute processes. He does appear to be moderate multilevel degenerative disc disease patient given Lidoderm patch and by mouth analgesic. Patient be discharged and advised follow-up with primary care doctor. - Related Data Home Medications Medication Instructions Recorded Confirmed FLUoxetine HCL 40 mg PO DAILY 05/29/21 06/07/21 Fexofenadine HCl [Luisana Allergy] 180 mg PO DAILY 05/29/21 06/07/21 Levothyroxine Sodium [Synthroid] 50 mcg PO DAILY 05/29/21 06/07/21 Meloxicam 15 mg PO DAILY 05/29/21 06/07/21 Montelukast [Singulair] 10 mg PO HS 05/29/21 06/07/21 Multivitamin/Iron/Folic Acid 1 tab PO DAILY 05/29/21 06/07/21 [Centrum Complete Multivit Tab] Omeprazole [PriLOSEC] 20 mg PO BID 05/29/21 06/07/21 amLODIPine [Norvasc] 5 mg PO DAILY 05/29/21 06/07/21 buPROPion [Wellbutrin] 75 mg PO BID 05/29/21 06/07/21 Ibuprofen [Motrin] 800 mg PO Q6H PRN 06/07/21 06/07/21 Previous Rx's Medication Instructions Recorded Losartan [Cozaar] 50 mg PO DAILY #30 tab 05/31/21 Potassium Chloride ER [K-Dur 20] 20 meq PO DAILY #14 tab 05/31/21 Cyclobenzaprine [Flexeril] 5 mg PO TID PRN 6 Days #18 tablet 09/13/21 traMADol HCL 50 mg PO Q6H PRN #12 tablet 09/13/21 Allergies Allergy/AdvReac Type Severity Reaction Status Date / Time cefaclor [From [facility]] Allergy Rash/Hives Verified 09/13/21 15:02 Penicillins Allergy Rash/Hives Verified 09/13/21 15:02 Review of Systems ROS Statement: Those systems with pertinent positive or pertinent negative responses have been documented in the HPI. ROS Other: All systems not noted in ROS Statement are negative. Past Medical History Past Medical History: Hypertension History of Any Multi-Drug Resistant Organisms: None Reported Past Surgical History: Cholecystectomy, Hysterectomy, Joint Replacement, Tonsillectomy Past Anesthesia/Blood Transfusion Reactions: No Reported Reaction Past Psychological History: Anxiety, Depression Smoking Status: Never smoker Past Alcohol Use History: Daily Past Drug Use History: None Reported General Exam Limitations: no limitations Course Vital Signs 09/13/21 14:59 Temperature 97.0 F L Pulse Rate 100 Respiratory 20 Rate Blood Pressure 151/82 O2 Sat by Pulse 98 Oximetry Disposition Clinical Impression: Neck pain Disposition: HOME SELF-CARE Condition: Good Instructions (If sedation given, give patient instructions): Chronic Neck Pain (DC) Prescriptions: Cyclobenzaprine [Flexeril] 5 mg PO TID PRN 6 Days #18 tablet PRN Reason: Muscle Spasm traMADol HCL 50 mg PO Q6H PRN #12 tablet PRN Reason: Pain Is patient prescribed a controlled substance at d/c from ED?: Yes If prescribed controlled substance>3 days was MAPS reviewed?: Prescribed <3 Days Referrals: Corine Christianson CN [Primary Care Provider] - 1-2 days
--- NOTE | 2021-09-13 16:41 | CT ---
EXAMINATION TYPE: CT cervical spine wo con CT DLP: 378.3 mGycm, Automated exposure control for dose reduction was used. DATE OF EXAM: 09/13/2021 4:11 PM COMPARISON: None. CLINICAL INDICATION:Female, 66 years old with history of pain, Neck pain, no injury. TECHNIQUE: Axial CT images from the skull base to the inferior aspect of T2 we obtained without intra venous contrast. Coronal and sagittal reformatted images were also reviewed. FINDINGS: Fracture: None. Osseous structures: Multilevel degenerative disc disease changes with endplate spurring and disc oste ophyte complex's. Vertebral alignment: Within normal limits. Spinal canal/Neural Foramina: No evidence of significant spinal canal narrowing. No evidence of signi ficant neural foramina narrowing. Neck soft tissues: Prevertebral soft tissues are within normal limits. Other: The airway is patent. The lung apices are clear. IMPRESSION: 1. No evidence of cervical spine fracture. 2. Moderate multilevel degenerative disc disease.
[2021-09-13] MEDS ORDERED: traMADol 50 MG STARTER PACK 3 TAB BTL PO STA (16:56)
[2021-09-13 17:25] VITALS: BP 140/88; PULSE 90; RESP 18; TEMP 98.2
== END 2021-09-13 17:26 | disposition home or self-care (01) ==
LOC: EC 14:57
DX: M54.2 Cervicalgia (principal); I10 Essential (primary) hypertension; Z88.0 Allergy status to penicillin; Z88.1 Allergy status to other antibiotic agents
CPT/HCPCS: 72125; 99284

== ENCOUNTER → 2022-02-06 | Day surgery (SDC) | payer MEDICARE, OTHER ==
--- NOTE | 2022-02-14 11:24 | MM ---
Reason for Exam: Post Procedure Mammogram. Risk Values: Juliana 5 year model risk: 1.1%. NCI Lifetime model risk: 3.8%. Tissue Density: Left: The breast tissue is heterogeneously dense. This may lower the sensitivity of mammography. Pathology Description: Location: 10 o'clock. Marker Left Behind. Cores: 2 Gauge: 12 The procedure of needle localization with wire placement using ultrasound and mammogram guidance and than surgical excision was explained to the patient. Benefits, alternatives, and risks were discussed. An informed consent was then obtained. Ultrasound localization performed of the large mass or neoplasm. The clock position invading the dermal layer marked inferior aspect left breast. Preprocedure ultrasound redemonstrates a lobulated mass with central clip measuring just over 2.0 cm. Overlying skin is cleansed with ChloraPrep. Lidocaine was used as anesthetic. Under ultrasound guidance, a 5 cm needle was passed into the lesion. Following this needle is withdrawn and wires left in place. Due to marked posterior inferior location it cannot be visualized on mammogram similar to postbiopsy. Attention then turned to the sampled axillary lymph node with biopsy clip. The overlying skin was prepped and draped in usual sterile fashion. Lidocaine was used as anesthetic into the skin and subcutaneous tissue up to the level of area of concern. A 5 cm needle was used. It was placed via a lateral to medial approach under mammographic guidance. Subsequent 90 degrees mammogram show the needle to be in satisfactory position relative to the targeted area. At this point, wire was placed and the needle was withdrawn. The wire was fixed to patient's skin. Images were marked for surgeon for the axillary clip and lymph node. The patient tolerated the procedure well without any immediate complication. The patient was kept in the radiology department for short stay after the procedure and then taken to surgery for surgical excision. Targeted biopsy clip corresponding to mass and biopsy clip corresponding to lymph node and wire are identified in both specimen mammograms. The patient was kept in hospital for short stay after the procedure and then discharged home in stable condition. IMPRESSION: Successful, uncomplicated needle localization with wire placement and surgical excision of both areas of concern in the left breast, full pathology results to follow. Pathology Results: Result: Malignant, Invasive ductal carcinoma. LEFT BREAST, 10:00, ULTRASOUND GUIDED NEEDLE CORE BIOPSY: Invasive well differentiated ductal carcinoma (Grade 1). See Surgical Pathology Cancer Case Summary. Overall Assessment: Malignant Assessment: MG diagnostic mammo LT wo CAD. - Left: Known biopsy proven malignancy, BI-RAD 6. Management: Surgical Consultation of the left breast. Diagnostic Breast Ultrasound of the left breast in 6 months. Electronically signed and approved by: Winston Kendall M.D.
== END ==
LOC: RADUSWWP 12:48
PROVIDERS: ATTEND Family Medicine
DX: R92.8 Other abnormal and inconclusive findings on diagnostic imaging of breast (principal)
CPT/HCPCS: 88305; 88342; 88341; 77065; 19083; A4648

== ENCOUNTER → 2022-02-15 | Outpatient (CLI) | payer MEDICARE, OTHER ==
[2022-02-15 13:13] VITALS: BP 149/77; PULSE 82; RESP 18; TEMP 99.7
--- NOTE | 2022-02-15 14:17 | P.GSHP ---
History of Present Illness H&P Date: 02/15/22 Chief Complaint: left breast invasive ductal cancer stage IA Jayshree is a 66 year old white female seen in consultation for Dr. Trevino regarding a mammographic abnormality in the left breast. The patient had a bilateral mammogram performed at [facility] on . This revealed in the central left breast at middle depth a 1.4 cm lesion. On the right some benign oral cyst and calcifications were noted. An area of focal asymmetry was noted. Ultrasound of both breasts was recommended. Ultrasound of both breasts was performed. That in the right initial anything of concern. Then on the left revealed a lesion for which core biopsy was recommended. Core biopsy was performed and [id number] of the lesion in the left breast at 10:00. This revealed an invasive well-differentiated ductal carcinoma grade 1. It is ER Positive and HER-2 negative. The patient did not feel any lumps masses or nodules of concern in either breast prior to her workup. She has not had any recent trauma or infection in the breast. She has not had any prior breast biopsies. Caffeine: 1 cup tea/day nicotine: none hormones: none; BCP; 2 years stopped 30 years ago chocolate: occasional Family history: sister: breast cancer mother: stomach cancer smoker Hormonal History: menarche: 10 , age at first : 20, patient did not breast feed menopause: hysterectomy at 39; took ovaries, done for cyst no cancer hormones: none Surgical history: Total abdominal hysterectomy right shoulder bilateral knee replacement tonsil gallbladder Medical History: hypothyroid HTN anxiety depression - Constitutional Constitutional: Denies chills, Denies fever - EENT Eyes: bilateral dry eye, denies blurred vision, denies pain Ears: deny: decreased hearing, tinnitus Ears, nose, mouth and throat: Reports headache, Denies sore throat - Breasts Breasts: bilateral: as per HPI - Cardiovascular Cardiovascular: Denies chest pain, Denies shortness of breath - Respiratory Comment: asthma Respiratory: Denies cough, Denies 7 - Gastrointestinal Gastrointestinal: Reports abdominal pain, Reports diarrhea, Denies nausea, Denies vomiting - Genitourinary (Female) Genitourinary: Denies dysuria, Denies hematuria - Menstruation Menstruation: Reports post hysterectomy - Musculoskeletal Comment: neck and upper back pain sees physical therapy Musculoskeletal: Denies myalgias - Integumentary Integumentary: Denies pruritus, Denies rash - Neurological Neurological: Denies numbness, Denies weakness - Psychiatric Psychiatric: Reports anxiety, Reports depression - Endocrine Comment: hypothyroid - Hematologic/Lymphatic Comment: none - Allergic/Immunologic Allergic/Immunologic: Reports seasonal allergies Past Medical History Past Medical History: Hypertension, Osteoarthritis (OA), Thyroid Disorder Additional Past Medical History / Comment(s): heart murmur History of Any Multi-Drug Resistant Organisms: None Reported Past Surgical History: Cholecystectomy, Hysterectomy, Joint Replacement, Tonsillectomy Additional Past Surgical History / Comment(s): Bilat knee repalcement Past Anesthesia/Blood Transfusion Reactions: No Reported Reaction Past Psychological History: Anxiety, Depression Smoking Status: Never smoker Past Alcohol Use History: Daily Additional Past Alcohol Use History / Comment(s): drinks 2-3 glasses wine daily Past Drug Use History: None Reported Medications and Allergies Home Medications Medication Instructions Recorded Confirmed Type FLUoxetine HCL 40 mg PO DAILY 05/29/21 02/15/22 History Fexofenadine HCl [Luisana Allergy] 180 mg PO DAILY 05/29/21 02/15/22 History Levothyroxine Sodium [Synthroid] 50 mcg PO DAILY 05/29/21 02/15/22 History Montelukast [Singulair] 10 mg PO HS 05/29/21 02/15/22 History Multivitamin/Iron/Folic Acid 1 tab PO DAILY 05/29/21 02/15/22 History [Centrum Complete Multivit Tab] Omeprazole [PriLOSEC] 20 mg PO BID 05/29/21 02/15/22 History amLODIPine [Norvasc] 5 mg PO DAILY 05/29/21 02/15/22 History buPROPion [Wellbutrin] 75 mg PO BID 05/29/21 02/15/22 History Losartan [Cozaar] 50 mg PO DAILY #30 tab 05/31/21 02/15/22 Rx Cyclobenzaprine [Flexeril] 5 mg PO TID PRN 6 Days #18 tablet 09/13/21 02/15/22 Rx methocarbamoL [Methocarbamol] 500 mg PO TID 01/30/22 02/15/22 History Allergies Allergy/AdvReac Type Severity Reaction Status Date / Time cefaclor [From [facility]] Allergy Rash/Hives Verified 02/15/22 13:13 Penicillins Allergy Rash/Hives Verified 02/15/22 13:13 Surgical - Exam Vital Signs Temp Pulse Resp BP Pulse Ox 99.7 F H 82 18 149/77 96 02/15/22 13:11 02/15/22 13:11 02/15/22 13:11 02/15/22 13:11 02/15/22 13:11 BMI: 31 - General no distress - Eyes normal ocular movement - ENT no hearing loss - Neck trachea midline - Respiratory normal respiratory effort, clear to auscultation - Cardiovascular Rhythm: regular Heart Sounds: normal: S1, S2 - Abdomen Abdomen: soft, non tender, no guarding, no rigid, no rebound - Integumentary normal turgor - Neurologic no disoriented, no combative - Musculoskeletal normal gait, normal posture - Psychiatric oriented to time, oriented to person, oriented to place, speech is normal, memory intact Breast Exam: BRA: 46D Inspection: Bilateral grade 3 ptosis, right breast larger than left breast Palpation: Right breast: Multiple positional exam fibrocystic changes or dominant masses or nodules of concern Right axilla: No adenopathy of concern Left breast: Multiple positional exam fibrocystic changes no dominant masses or nodules of concern Left axilla: No adenopathy of concern Results Mammogram [facility], reports reviewed from [facility] Assessment and Plan Assessment: Impression: 1. Invasive ductal carcinoma stage IA left breast 2. Fibrocystic breast changes 3. Anxiety/depression 4. Hypertension 5. Hypothyroid Plan: 1. Presentation of case at tumor board 2. I will discuss the surgical options with the patient as well as risks and benefits Cc: Dr. Trevino
== END | disposition home or self-care (01) ==
LOC: WWCWWP 12:34
PROVIDERS: ATTEND Surgery
DX: Z53.9 Procedure and treatment not carried out, unspecified reason (principal)

== ENCOUNTER → 2022-03-08 | Outpatient (CLI) | payer MEDICARE ==
--- NOTE | 2022-03-11 20:06 | BD ---
EXAMINATION TYPE: Axial Bone Density DATE OF EXAM: 03/08/2022 COMPARISON: NONE CLINICAL HISTORY: 66 year old Female. ICD-10 CODE: C50.212 MALIG NEOPLASM OF UPPER INNER QUAD OF L FE Height: 62 Weight: 180.2 FRAX RISK QUESTIONS: Alcohol (3 or more units per day): yes Family History (Parent hip fracture): no Glucocorticoids (More than 3mos): no (Ex: prednisone, prednisolone, methylprednisolone, dexamethasone, and hydrocortisone). History of Fracture in Adulthood: no Secondary Osteoporosis: 1. Type 1 Diabetes: no 2. Hyperthyroidism: no 3. Menopause before 45: no 4. Malnutrition: no 5. Chronic liver disease: no Rheumatoid Arthritis: no Current Tobacco Use: no RISK FACTORS HISTORY OF: Surgery to Spine/Hip(right/left)/Wrist (right/left): no Family History of Osteoporosis: no Active: no Diet low in dairy products/other sources of calcium: yes Postmenopausal woman: yes Lost more than 2 inches in height since high school: no MEDICATIONS: Thyroid Medications: levothyroxine How Lon years Additional History: EXAM MEASUREMENTS: Bone mineral densitometry was performed using the [employer] System. Bone mineral density as measured about the Lumbar spine is: ----- L1-L4(G/cm2): 1.384 T Score Values are as follows: ----- L1: 1.6 ----- L2: 1.7 ----- L3: 1.2 ----- L4: 2.1 ----- L1-L4: 1.7 Bone mineral density : baseline Bone mineral density about the R hip (g/cm2): 0.794 Bone mineral density about the L hip (g/cm2): 0.894 T Score values are as follows: -----R Neck: -1.8 -----L Neck: -1.0 -----R Total: -1.1 -----L Total: -0.5 Bone mineral density : baseline FRAX%s: The graph provided illustrates a 11.9% chance for a major osteoporotic fx and a 2.1% chance f or the hips probability for fx in 10 years time. IMPRESSION: Osteopenia (T Score between -2.5 and -1). There is slightly increased risk of fracture and the patient may be considered for treatment. Re-Screen 2-5 years. NOTE: T-SCORE=SD OF THE YOUNG ADULT MEAN.
== END | disposition home or self-care (01) ==
LOC: RADBDWWP 16:12
PROVIDERS: ATTEND Internal Medicine
DX: C50.212 Malignant neoplasm of upper-inner quadrant of left female breast (principal); M85.80 Other specified disorders of bone density and structure, unspecified site
CPT/HCPCS: 77080

== ENCOUNTER 2022-03-22 21:56 | Emergency (ER) | payer MEDICARE, OTHER ==
[2022-03-22 22:03] VITALS: BP 117/75; PULSE 87; RESP 22; TEMP 98.2
[2022-03-22] MEDS ORDERED: SODIUM CHLORIDE 0.9% 500 ML 500 ML IV STA (22:30)
[2022-03-22] MEDS ORDERED: KETOROLAC 15 MG/ML 1 ML VIAL IVP STA (22:30)
--- NOTE | 2022-03-22 22:34 | ED ---
Abdominal Pain HPI - General Chief Complaint: Abdominal Pain Stated Complaint: Lower abdominal pain Time Seen by Provider: 03/22/22 22:17 Source: patient, RN notes reviewed, old records reviewed Mode of arrival: wheelchair Limitations: no limitations - History of Present Illness Initial Comments: [id number] female presents to the emergency room with complaints of right lower quadrant abdominal pain for the past week. Patient states she did have so me diarrhea was brown and watery in nature. She denies any nausea vomiting or fevers. No chest pain or difficulty breathing. She does have history of cholecystectomy and hysterectomy. Hypertension and osteoarthritis. She states that she is scheduled to undergo a lumpectomy for a breast cancer. She is very anxious. MD Complaint: abdominal pain -: week(s) Location: RLQ Radiation: back Severity scale (1-10): 8 Quality: sharp Consistency: constant Improves With: nothing Worsens With: nothing Associated Symptoms: dysuria - Related Data Home Medications Medication Instructions Recorded Confirmed FLUoxetine HCL 40 mg PO DAILY 05/29/21 03/21/22 Fexofenadine HCl [Luisana Allergy] 180 mg PO DAILY 05/29/21 03/21/22 Levothyroxine Sodium [Synthroid] 50 mcg PO DAILY 05/29/21 03/21/22 Montelukast [Singulair] 10 mg PO HS 05/29/21 03/21/22 Multivitamin/Iron/Folic Acid 1 tab PO DAILY 05/29/21 03/21/22 [Centrum Complete Multivit Tab] amLODIPine [Norvasc] 5 mg PO DAILY 05/29/21 03/21/22 buPROPion [Wellbutrin] 75 mg PO BID 05/29/21 03/21/22 methocarbamoL [Methocarbamol] 500 mg PO TID 01/30/22 03/21/22 Previous Rx's Medication Instructions Recorded Losartan [Cozaar] 50 mg PO DAILY #30 tab 05/31/21 Cyclobenzaprine [Flexeril] 5 mg PO TID PRN 6 Days #18 tablet 09/13/21 Ciprofloxacin [Cipro Susp] 500 mg PO BID 10 Days #20 ml 03/23/22 metroNIDAZOLE [Flagyl] 500 mg PO TID 10 Days #30 tab 03/23/22 Allergies Allergy/AdvReac Type Severity Reaction Status Date / Time cefaclor [From Ceclor] Allergy Rash/Hives Verified 03/22/22 22:03 Penicillins Allergy Rash/Hives Verified 03/22/22 22:03 Review of Systems ROS Statement: Those systems with pertinent positive or pertinent negative responses have been documented in the HPI. ROS Other: All systems not noted in ROS Statement are negative. Past Medical History Past Medical History: Hypertension, Osteoarthritis (OA), Thyroid Disorder Additional Past Medical History / Comment(s): heart murmur History of Any Multi-Drug Resistant Organisms: None Reported Past Surgical History: Cholecystectomy, Hysterectomy, Joint Replacement, Tonsillectomy Additional Past Surgical History / Comment(s): Bilat knee repalcement Past Anesthesia/Blood Transfusion Reactions: No Reported Reaction Past Psychological History: Anxiety, Depression Smoking Status: Never smoker Past Alcohol Use History: Daily Past Drug Use History: None Reported General Exam Limitations: no limitations General appearance: alert, in no apparent distress Head exam: Present: atraumatic, normocephalic Eye exam: Present: normal appearance. Absent: scleral icterus, conjunctival injection, periorbital swelling ENT exam: Present: mucous membranes moist Neck exam: Absent: tenderness, meningismus Respiratory exam: Present: normal lung sounds bilaterally. Absent: respiratory distress, wheezes, rales, rhonchi, stridor, chest wall tenderness, accessory muscle use Cardiovascular Exam: Present: regular rate GI/Abdominal exam: Present: soft, tenderness (Right lower quadrant), normal bowel sounds. Absent: distended, guarding, rebound, rigid Extremities exam: Present: normal inspection, normal capillary refill. Absent: pedal edema Neurological exam: Present: alert, oriented X3 Psychiatric exam: Present: anxious Skin exam: Present: warm, dry, normal color. Absent: cyanosis, diaphoretic, petechiae, pallor Course Vital Signs 03/22/22 21:58 Temperature 98.2 F Pulse Rate 87 Respiratory 22 Rate Blood Pressure 117/75 O2 Sat by Pulse 95 Oximetry Medical Decision Making - Medical Decision Making CT abdomen shows sigmoid diverticulitis with extensive colonic diverticulosis. No evidence of bowel obstruction or abscess. Patient denies any fevers. She will be placed on Flagyl and Cipro due to her ALLERGY to penicillin and directed to follow up with her primary care doctor. Patient is agreeable to this plan of care. Case discussed with Dr. Cordova. - Lab Data Result diagrams: 03/22/22 23:00 03/22/22 23:00 Lab Results 03/22/22 03/22/22 03/22/22 Range/Units 23:00 23:00 23:00 WBC 11.2 H (3.8-10.6) k/uL RBC 4.34 (3.80-5.40) m/uL Hgb 13.9 (11.4-16.0) gm/dL Hct 41.6 (34.0-46.0) % MCV 95.9 (80.0-100.0) fL MCH 32.1 (25.0-35.0) pg MCHC 33.5 (31.0-37.0) g/dL RDW 11.8 (11.5-15.5) % Plt Count 412 (150-450) k/uL MPV 6.8 Neutrophils % 81 % Lymphocytes % 11 % Monocytes % 5 % Eosinophils % 1 % Basophils % 0 % Neutrophils # 9.0 H (1.3-7.7) k/uL Lymphocytes # 1.3 (1.0-4.8) k/uL Monocytes # 0.6 (0-1.0) k/uL Eosinophils # 0.1 (0-0.7) k/uL Basophils # 0.0 (0-0.2) k/uL Sodium 128 L (137-145) mmol/L Potassium 3.1 L (3.5-5.1) mmol/L Chloride 86 L (98-107) mmol/L Carbon Dioxide 26 (22-30) mmol/L Anion Gap 16 mmol/L BUN 15 (7-17) mg/dL Creatinine 0.88 (0.52-1.04) mg/dL Est GFR (CKD-EPI)AfAm 79 (>60 ml/min/1.73 sqM) Est GFR (CKD-EPI)NonAf 69 (>60 ml/min/1.73 sqM) Glucose 130 H (74-99) mg/dL Plasma Lactic Acid Patel 1.0 (0.7-2.0) mmol/L Calcium 9.8 (8.4-10.2) mg/dL Total Bilirubin 0.6 (0.2-1.3) mg/dL AST 37 H (14-36) U/L ALT 36 H (4-34) U/L Alkaline Phosphatase 123 (38-126) U/L Total Protein 7.3 (6.3-8.2) g/dL Albumin 4.6 (3.5-5.0) g/dL Amylase 31 (30-110) U/L Lipase 110 (23-300) U/L Disposition Clinical Impression: Diverticulitis Disposition: HOME SELF-CARE Condition: Good Instructions (If sedation given, give patient instructions): Diverticulitis (ED) Additional Instructions: Take antibiotics as prescribed and follow-up with the primary care doctor next week. Return to the emergency room with any new or concerning symptoms including increased pain, persistent nausea vomiting or fevers. Some low-fiber foods to consider during a flare-up include: White bread, white rice or white pasta. Processed fruit like applesauce or canned peaches. Low-fiber cereals. Yellow squash, pumpkin or zucchini (skins removed and cooked) Potatoes with no skin. Cooked spinach, beets or asparagus. Fruit and vegetable juices. Foods to avoid with diverticulitis include high-fiber options such as: Whole grains. Fruits and vegetables with the skin and seeds. Nuts and seeds. Beans. Popcorn Prescriptions: Ciprofloxacin [Cipro Susp] 500 mg PO BID 10 Days #20 ml metroNIDAZOLE [Flagyl] 500 mg PO TID 10 Days #30 tab Is patient prescribed a controlled substance at d/c from ED?: No Referrals: None,Stated [Primary Care Provider] - 1-2 days Time of Disposition: 00:45
[2022-03-22] MEDS ORDERED: fentaNYL (PF) 50 MCG/ML 2 ML AMP IVP STA (23:40)
[2022-03-22 23:42] LABS: Basophils % (A) 0 %; Eosinophils # (A) 0.1 k/uL (0-0.7); Eosinophils % (A) 1 %; HCT 41.6 % (34.0-46.0); HGB 13.9 gm/dL (11.4-16.0); Lymphocytes # (A) 1.3 k/uL (1.0-4.8); Lymphocytes % (A) 11 %; MCH 32.1 pg (25.0-35.0); MCHC 33.5 g/dL (31.0-37.0); MCV 95.9 fL (80.0-100.0); Mean Platelet Volume 6.8; Monocytes # (A) 0.6 k/uL (0-1.0); Monocytes % (A) 5 %; Neutrophils % (A) 81 %; Platelet Count 412 k/uL (150-450); RBC 4.34 m/uL (3.80-5.40); RDW 11.8 % (11.5-15.5); WBC 11.2 k/uL (3.8-10.6)
[2022-03-22] MEDS ORDERED: SODIUM CHLORIDE 0.9% 1,000 ML IV SCH (23:45)
[2022-03-22 23:48] LABS: Albumin 4.6 g/dL (3.5-5.0); Calcium 9.8 mg/dL (8.4-10.2); Potassium 3.1 mmol/L (3.5-5.1); Total Bilirubin 0.6 mg/dL (0.2-1.3); Total Protein 7.3 g/dL (6.3-8.2)
[2022-03-22] MEDS ORDERED: POTASSIUM CHLORIDE ER 20 MEQ TAB.ER PO STA (23:59)
--- NOTE | 2022-03-23 00:27 | CT ---
EXAMINATION TYPE: CT abdomen pelvis w con DATE OF EXAM: 03/23/2022 COMPARISON: 05/29/2021 HISTORY: RLQ pain CT DLP: 1174.2 mGycm Automated exposure control for dose reduction was used. CONTRAST: Performed with IV Contrast, patient injected with 100ml mL of Isovue 300. There is minimal subsegmental atelectasis at the lung bases. Heart size is normal. No pericardial eff usion. No pleural effusion. Liver and spleen are intact. No pancreatic mass. There are clips from cholecystectomy. The stomach is intact. The bile ducts are not dilated. There is no adrenal mass. Kidneys show satisfactory contrast opacification. There is no hydronephrosi s. Ureters are not dilated. Bladder distends smoothly. No inguinal hernia. There is inflammatory alford ges in the pelvis around the sigmoid colon. There are numerous sigmoid diverticula. There is mild wal l thickening. Appendix not seen. No sign of thickened appendix. No ascites or free air. No bowel obstruction. The lumbar vertebrae have fairly normal alignment. There is vacuum disc at L4-5 with spurring and scl erosis. Bony pelvis is intact. The hip joints are intact. Sacroiliac joints are intact. There is a mi ld thoracolumbar levoscoliosis. IMPRESSION: There is sigmoid diverticulitis. Extensive colonic diverticulosis. Diverticulitis is new compared to old exam. no bowel obstruction. No evidence of an abscess.
[2022-03-23] MEDS ORDERED: ACET/COD 300 MG/30 MG STARTER PACK 6 TAB BTL PO STA (00:50)
== END 2022-03-23 01:06 | disposition home or self-care (01) ==
LOC: EC 21:56
DX: K57.92 Diverticulitis of intestine, part unspecified, without perforation or abscess without bleeding (principal); I10 Essential (primary) hypertension; E07.9 Disorder of thyroid, unspecified; Z79.899 Other long term (current) drug therapy; Z88.0 Allergy status to penicillin; Z88.8 Allergy status to other drugs, medicaments and biological substances
CPT/HCPCS: 51798; 36415; 80053; 82150; 83605; 83690; 85025; 74177; 99284; 96374; 96375; J3010; J1885; Q9967

== ENCOUNTER 2022-04-04 06:18 | Day surgery (SDC) | payer MEDICARE, OTHER ==
[2022-04-02 11:42] VITALS: BMI 31.8
[~2022-04-04 06:18] MED LIST: DEXAMETHASONE SOD PHOSPHATE 4 MG/ML 1 ML VIAL IV ONE; HEPARIN SODIUM,PORCINE/PF 5,000 UNIT/0.5 ML SYRINGE SQ PRN; LACTATED RINGERS 1,000 ML IV SCH; LIDOCAINE 1% (10MG/ML) FOR IV START INTRADERMA PRN; MIDAZOLAM 2 MG/2 ML VIAL IV PRN; ONDANSETRON 4 MG/2 ML VIAL IVP ONE; Pre Op ABX Message 1 EACH MISC MISCELLANE ONE
[2022-04-04] MEDS ORDERED: ALPRAZolam 0.5 MG TAB PO ONE ×2 (07:09)
[2022-04-04] MEDS ORDERED: LIDOCAINE 1% INJ 10MG/ML (20 ML MDV) SQ ONE (08:20)
[2022-04-04] MEDS ORDERED: LIDOCAINE 2% INJ 20 MG/ML (2 ML VIAL) ONE (09:10)
[2022-04-04] MEDS ORDERED: PROPOFOL 10 MG/ML 20 ML VIAL IV ONE (09:10)
[2022-04-04] MEDS ORDERED: PHENYLEPHRINE-0.9% NACL SYG 1,000 MCG/10 ML SYRINGE ONE (09:10)
[2022-04-04] MEDS ORDERED: ePHEDrine 50 MG/ML 1 ML VIAL ONE (09:10)
[2022-04-04] MEDS ORDERED: SUCCINYLCHOLINE CHLORIDE 200 MG/10 ML VIAL IV ONE (09:10)
[2022-04-04] MEDS ORDERED: fentaNYL (PF) 50 MCG/ML 2 ML AMP ONE (09:10)
[2022-04-04] MEDS ORDERED: MIDAZOLAM 2 MG/2 ML VIAL ONE (09:10)
[2022-04-04] MEDS ORDERED: SODIUM CHLORIDE 0.9% 100 ML with ceFAZolin 2,000 MG IV ONE ×2 (09:28)
--- NOTE | 2022-04-04 09:37 | P.NAPBC ---
NAPBC Queries - NAPBC Queries Was patient's case review presented at [facility] tumor board? If no, comment.: Yes Was patient's pathology reviewed at [facility]? If no, comment.: Yes Was breast conservation surgery offered? If no, comment.: Yes Was sentinel node biopsy offered? If no, comment.: Yes Was diagnosis confirmed by percutaneous core biopsy? If no, comment.: Yes Is patient mastectomy patient?: No Was a preop referral to reconstructive surgeon offered?: Yes Clinical Stage: stage IA
[2022-04-04 12:36] VITALS: TEMP 97
[2022-04-04] MEDS: HYDROmorphone 0.5 MG/0.5 ML SYRINGE IVP PRN ×3 (12:43→13:14)
--- NOTE | 2022-04-04 12:43 | P.OP ---
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 Postoperative Diagnosis: Same Procedure(s) Performed: Right breast needle localization lumpectomy, reduction mammoplasty, sentinel node biopsy Anesthesia: GAETANO Surgeon: Amarilys Morel Estimated Blood Loss (ml): 20 IV fluids (ml): 700 Pathology: other ([employer] lymph node, breast tissue) Condition: stable Disposition: same day Indications for Procedure: Biopsy-proven invasive ductal carcinoma left breast in patient with symptomatic macromastia Operative Findings: Breast cancer/fibrofatty breast tissue Description of Procedure: The patient is a 66-year-old white female diagnosed with a left breast invasive ductal carcinoma. She also has symptomatic macromastia and wished the lumpectomy to be performed with a reduction mammoplasty. Preoperatively the patient was seen in the radiology department where needle localization of the area of concern was performed as well as injection of radiotracer in the periareolar region. She was then seen in the preoperative area where markings were placed from a reduction mammoplasty. The patient was taken to the operative suite and following induction of anesthesia the axilla was interrogated and radioactivity was identified in the axilla. The left breast and axilla were then prepped and draped in a sterile fashion. The axilla was approached initially. Using the neoprobe. Concern was identified. A radioactive lymph node was identified. This tissue was removed using the Harmonic scalpel. The 10 second count was 1032. Several other areas which appeared to be lymph nodes in the specimen were also identified. The background count was 19. The wound was well irrigated. After assured that hemostasis was attained the deep tissues were closed using 3-0 Vicryl suture. The skin was closed using 4-0 Monocryl. No other palpable or radioactive adenopathy of concern were identified in the axilla. The area of the breast was then approached. Using the preoperative markings the medical floor in inferior reduction mammoplasty was de-epithelialized. Prior to this a 50 cookie cutter was used to outline the nipple areolar region. After this had been accomplished the dissection was performed utilizing our preoperative markers down to the chest wall for the new location of the nipple areolar complex. This included the needle localization area and the specimen at this portion was removed and painted for orientation. Titanium clips were placed. Radiograph the specimen revealed the area of concern about removed. Posteriorly dissection was onto the pectoralis muscle. The additional tissue areas were resected as of the marked preoperatively. The wound was evaluated and noted to be hemostatic. It was well irrigated. The medial and lateral flaps were brought inferiorly to close the defect. Prior to this 2 #10 MARGARET drains were placed one medially and one laterally. Closure was with a 3-0 Vicryl suture in the subcutaneous tissues, and a 4-0 Monocryl in the subcuticular tissues. A nylon suture was placed following this. The MARGARET drains were secured with 3-0 nylon suture. The patient tolerated the procedure in stable condition. All instrument and sponge counts were correct at the end of the case.
--- NOTE | 2022-04-04 12:45 | P.DS ---
Providers Attending physician: Amarilys Morel Primary care physician: Vladimir Trevino Plan - Discharge Summary Discharge Rx Participant: No New Discharge Prescriptions: No Action Fexofenadine HCl [Luisana Allergy] 180 mg PO DAILY FLUoxetine HCL 40 mg PO DAILY buPROPion [Wellbutrin] 75 mg PO BID amLODIPine [Norvasc] 5 mg PO DAILY Multivitamin/Iron/Folic Acid [Centrum Complete Multivit Tab] 1 tab PO DAILY Cyclobenzaprine [Flexeril] 5 mg PO TID PRN 6 Days #18 tablet PRN Reason: Muscle Spasm hydrOXYzine HCL [Atarax] 50 mg PO TID PRN #15 tab PRN Reason: Anxiety Montelukast [Singulair] 10 mg PO HS Levothyroxine Sodium [Synthroid] 50 mcg PO DAILY Losartan [Cozaar] 50 mg PO DAILY #30 tab methocarbamoL [Methocarbamol] 500 mg PO TID Potassium Chloride ER [K-Dur 20] 20 meq PO DAILY Discharge Medication List FLUoxetine HCL 40 mg PO DAILY 05/29/21 [History] Fexofenadine HCl [Luisana Allergy] 180 mg PO DAILY 05/29/21 [History] Levothyroxine Sodium [Synthroid] 50 mcg PO DAILY 05/29/21 [History] Montelukast [Singulair] 10 mg PO HS 05/29/21 [History] Multivitamin/Iron/Folic Acid [Centrum Complete Multivit Tab] 1 tab PO DAILY 05/29/21 [History] amLODIPine [Norvasc] 5 mg PO DAILY 05/29/21 [History] buPROPion [Wellbutrin] 75 mg PO BID 05/29/21 [History] Losartan [Cozaar] 50 mg PO DAILY #30 tab 05/31/21 [Rx] Cyclobenzaprine [Flexeril] 5 mg PO TID PRN 6 Days #18 tablet 09/13/21 [Rx] methocarbamoL [Methocarbamol] 500 mg PO TID 01/30/22 [History] hydrOXYzine HCL [Atarax] 50 mg PO TID PRN #15 tab 03/23/22 [Rx] Potassium Chloride ER [K-Dur 20] 20 meq PO DAILY 04/04/22 [History] Follow up Appointment(s)/Referral(s): Amarilys Morel MD [STAFF PHYSICIAN] - 1 Week Activity/Diet/Wound Care/Special Instructions: We are bra at all times May shower after 48 hours Teach patient drain care, drain and record MARGARET output twice a day and as needed Do not drive for seen by Dr. Humphries Discharge Disposition: HOME SELF-CARE
--- NOTE | 2022-04-04 14:27 | NM ---
EXAMINATION TYPE: NM sentinel node injection DATE OF EXAM: 04/04/2022 COMPARISON: 07/19/2021, 01/24/2022 HISTORY: 66 year-old female with biopsy-proven left breast cancer here for surgery today. TECHNIQUE AND FINDINGS: The procedure of sentinel lymph node injection was explained to the patient. The benefits, alternatives, and risks were discussed. An informed consent was then obtained. Overlying skin is cleaned with sterile alcohol. Following this, 495 uCi Tc99m Tilmanocept was inject ed in the upper outer aspect of the left nipple intradermally. The patient tolerated the procedure well without any immediate complication. The patient was kept in the radiology department for short stay after the procedure and then taken to surgery for surgical p rocedure what is presumed intraoperative gamma probe will be used for sentinel lymph node detection. IMPRESSION: Left breast radiotracer injection for sentinel node localization as above.
[2022-04-04 14:33] VITALS: BP 127/78; PULSE 104; RESP 18
--- NOTE | 2022-04-09 14:27 | MM ---
Prior Study Comparison: 02/06/2022 Left MG diagnostic mammo LT wo CAD., [facility]. Pathology Description: Location: 10 o'clock, middle, central. Approach: CC FA Needle Type: 9 cm Kopan. Satisfactory specimen with mass along the periphery of the specimen. Clip and wire are present. The procedure of needle localization with wire placement and than surgical excision was explained to the patient. Benefits, alternatives, and risks were discussed. An informed consent was then obtained. The shortest pathway with either medial or superior approach at 8 cm deep in the breast. Dr. Yandel Meyer was consulted and advised a superior approach to aid in reduction mammoplasty. The overlying skin was prepped and draped in usual sterile fashion. Lidocaine was used as anesthetic into the skin and subcutaneous tissue up to the level of area of concern. A 9 cm Kopan's needle was used. It was placed via a superior approach under mammographic guidance. Subsequent 90 degrees mammogram show the needle to be in satisfactory position relative to the targeted area. At this point, wire was placed and the needle was withdrawn. The wire was fixed to patient's skin. Images were marked for surgeon. The patient tolerated the procedure well without any immediate complication. The patient was kept in the radiology department for short stay after the procedure and then taken to surgery for surgical excision. Targeted mass, clip, and wire are identified in the specimen mammogram. The mass is located along the periphery of the specimen. The patient was kept in hospital for short stay after the procedure and then discharged home in stable condition. Impression: Successful, uncomplicated needle localization with wire placement and surgical excision of biopsy-proven left breast cancer. Full pathology results to follow. Pathology Results: Result: Malignant, Invasive ductal carcinoma. A. LEFT BREAST SENTINEL NODE, BIOPSY: Lymph node with partial fat replacement, negative for metastasis. CK7 and DIANE immunoperoxidase performed on blocks A1 and A2 are confirmatory (controls appropriate). B. LEFT AXILLARY TISSUE: Five lymph nodes negative for metastasis. C. LEFT BREAST REDUCTION TISSUE: Benign skin and subcutaneous tissue. D. LEFT BREAST, LUMPECTOMY: Invasive well-differentiated ductal carcinoma (Grade 1). Margins negative. See Surgical Pathology Cancer Case Summary. Overall Assessment: Malignant Management: Surgical Consultation of the left breast. Screening Mammogram of the left breast in 6 months. Electronically signed and approved by: Seble Sheffield M.D. Radiologist
== END 2022-04-04 15:40 | disposition home or self-care (01) ==
LOC: OR 06:18
PROVIDERS: ATTEND Surgery
DX: C50.212 Malignant neoplasm of upper-inner quadrant of left female breast (principal); N62 Hypertrophy of breast; E03.9 Hypothyroidism, unspecified; I10 Essential (primary) hypertension; F41.9 Anxiety disorder, unspecified; F32.A Depression, unspecified; M19.90 Unspecified osteoarthritis, unspecified site; R01.1 Cardiac murmur, unspecified; Z80.3 Family history of malignant neoplasm of breast; Z80.0 Family history of malignant neoplasm of digestive organs; Z90.710 Acquired absence of both cervix and uterus; Z79.899 Other long term (current) drug therapy; Z79.890 Hormone replacement therapy; Z88.0 Allergy status to penicillin; Z88.1 Allergy status to other antibiotic agents
CPT/HCPCS: 19301; 38525; 19318; 38900; 84132; 76098; 19281; 38792; C1819; A9520; J2250; J0330; J1100; J2405; J0690; J2001 ×2; J3010; J2370; J2704; J1170; J1644; 88305; 88307; 88341; 88342

== ENCOUNTER → 2022-04-11 | Outpatient (CLI) | payer MEDICARE, OTHER ==
--- NOTE | 2022-04-11 16:31 | P.PN ---
Progress Note - Text Progress Note Date: 04/11/22 Jayshree is status post left breast lumpectomy and SNB on 04-04-22. Her margins were negative and 7 nodes were (-). [id number]+Her2-G1 postoperatively she is doing very well. She still has approximately 25 mL of serosanguineous drainage from each drain per day. Lungs: Clear Heart: Regular rate and rhythm Incision: Clean and dry mild ecchymosis over the inferior breast no evidence of infection Plan: Leave drains in until next week Sutures in until next week Follow up in 1 week Follow-up medical oncology Follow-up radiation oncology
[2022-04-11 16:50] VITALS: BP 118/72; PULSE 102; RESP 16
== END | disposition home or self-care (01) ==
LOC: WWCWWP 16:16
PROVIDERS: ATTEND Surgery
DX: Z53.9 Procedure and treatment not carried out, unspecified reason (principal)

== ENCOUNTER → 2022-04-18 | Outpatient (CLI) | payer MEDICARE, OTHER ==
[2022-04-18 14:05] VITALS: BP 120/77; PULSE 83; RESP 17; TEMP 98
--- NOTE | 2022-04-18 14:14 | P.PN ---
Progress Note - Text Progress Note Date: 04/18/22 Jayshree is status post left breast lumpectomy and SNB on 04-04-22. Her margins were negative and 7 nodes were (-). [id number]+Her2-G1 postoperatively she is doing very well. She has < 10 cc /day of left breast drain B, and < or equal to 20 CC/day right drain. Will remove drains. She has no fever or chills. Lungs: Clear Heart: Regular rate and rhythm Incision: Clean and dry resolved echymosis Plan: remove drains remove sutures Follow up in 1 week Follow-up medical oncology Follow-up radiation oncology ciprofloxacin 500 Q 12 for 7 days CC: Dr. Obrien
== END | disposition home or self-care (01) ==
LOC: WWCWWP 13:46
PROVIDERS: ATTEND Surgery
DX: Z53.9 Procedure and treatment not carried out, unspecified reason (principal)

== ENCOUNTER 2022-04-21 17:44 | Emergency (ER) | payer MEDICARE, OTHER ==
[2022-04-21 18:01] VITALS: BP 120/76; PULSE 80; RESP 16; TEMP 98.4
--- NOTE | 2022-04-21 18:35 | ED ---
General Adult HPI - General Chief complaint: Recheck/Abnormal Lab/Rx Stated complaint: Post-op complications Time Seen by Provider: 04/21/22 18:05 Source: patient, RN notes reviewed, old records reviewed Mode of arrival: ambulatory Limitations: no limitations - History of Present Illness Initial comments: 66-year-old female status post left lumpectomy and 3 days postop drain removal presents with bleeding from drain site in her left breast. Patient states she was at home, sitting at the time which she felt wet sensation on her left side and back. There was a significant amount of blood. This was described as dark in color. Patient presents for evaluation. No fever. No purulent drainage. She is currently on antibiotics. - Related Data Home Medications Medication Instructions Recorded Confirmed FLUoxetine HCL 40 mg PO DAILY 05/29/21 04/18/22 Fexofenadine HCl [Luisana Allergy] 180 mg PO DAILY 05/29/21 04/18/22 Levothyroxine Sodium [Synthroid] 50 mcg PO DAILY 05/29/21 04/18/22 Montelukast [Singulair] 10 mg PO HS 05/29/21 04/18/22 Multivitamin/Iron/Folic Acid 1 tab PO DAILY 05/29/21 04/18/22 [Centrum Complete Multivit Tab] amLODIPine [Norvasc] 5 mg PO DAILY 05/29/21 04/18/22 buPROPion [Wellbutrin] 75 mg PO BID 05/29/21 04/18/22 methocarbamoL [Methocarbamol] 500 mg PO TID 01/30/22 04/18/22 Potassium Chloride ER [K-Dur 20] 20 meq PO DAILY 04/04/22 04/18/22 Previous Rx's Medication Instructions Recorded Losartan [Cozaar] 50 mg PO DAILY #30 tab 05/31/21 Cyclobenzaprine [Flexeril] 5 mg PO TID PRN 6 Days #18 tablet 09/13/21 hydrOXYzine HCL [Atarax] 50 mg PO TID PRN #15 tab 03/23/22 Allergies Allergy/AdvReac Type Severity Reaction Status Date / Time cefaclor [From [facility]] Allergy Rash/Hives Verified 04/21/22 18:01 Penicillins Allergy Rash/Hives Verified 04/21/22 18:01 Review of Systems ROS Statement: Those systems with pertinent positive or pertinent negative responses have been documented in the HPI. ROS Other: All systems not noted in ROS Statement are negative. Past Medical History Past Medical History: Cancer, Eye Disorder, Hypertension, Osteoarthritis (OA), Thyroid Disorder Additional Past Medical History / Comment(s): heart murmur. LT BREAST CANCER. SEEN IN THE ER 03/22/22 FOR ABD PAIN-DX WITH DIVERTICULITIS. BEGINNING CATARACTS History of Any Multi-Drug Resistant Organisms: None Reported Past Surgical History: Cholecystectomy, Hysterectomy, Joint Replacement, Tonsillectomy Additional Past Surgical History / Comment(s): Bilat knee repalcement. COLONOSCOPY Past Anesthesia/Blood Transfusion Reactions: No Reported Reaction Past Psychological History: Anxiety, Depression Smoking Status: Never smoker Past Alcohol Use History: Daily Past Drug Use History: None Reported - Past Family History Mother Family Medical History: No Reported History General Exam Limitations: no limitations General appearance: alert, in no apparent distress Head exam: Present: atraumatic, normocephalic Eye exam: Present: normal appearance ENT exam: Present: normal exam Neck exam: Present: normal inspection Respiratory exam: Absent: respiratory distress Cardiovascular Exam: Present: regular rate, normal rhythm GI/Abdominal exam: Absent: distended, tenderness Skin exam: Present: other (Left breast, postop lumpectomy, there is some minimal crusting over the incision, no purulent drainage. The anterior drain site has very small amount of old blood, the lateral drain site had about 10 mL of total blood expressed.) Course Vital Signs 04/21/22 17:57 Temperature 98.4 F Pulse Rate 80 Respiratory 16 Rate Blood Pressure 120/76 O2 Sat by Pulse 98 Oximetry Medical Decision Making - Medical Decision Making 66-year-old female with bleeding from her drain site after lumpectomy. I was able to express about 5 or 10 mL of blood from the left breast which was very old-appearing there is no purulence to it. No arterial hemorrhage. I discussed case with Dr. Morel, this is felt by myself and Dr. Humphries to be normal postoperative hematoma drainage. Patient will monitor closely. She will follow-up this week. Disposition Clinical Impression: Postoperative bleeding from incision Disposition: HOME SELF-CARE Condition: Fair Instructions (If sedation given, give patient instructions): Postoperative Bleeding (ED) Is patient prescribed a controlled substance at d/c from ED?: No Referrals: None,Stated [Primary Care Provider] - 1-2 days Amarilys Morel MD [STAFF PHYSICIAN] - 1-2 days Time of Disposition: 18:35
== END 2022-04-21 18:52 | disposition home or self-care (01) ==
LOC: EC 17:44
DX: L76.22 Postprocedural hemorrhage of skin and subcutaneous tissue following other procedure (principal); Z88.0 Allergy status to penicillin; Z88.1 Allergy status to other antibiotic agents; I10 Essential (primary) hypertension; E07.9 Disorder of thyroid, unspecified
CPT/HCPCS: 99282

== ENCOUNTER → 2022-04-23 | Outpatient (CLI) | payer MEDICARE, OTHER ==
--- NOTE | 2022-04-23 10:10 | P.PN ---
Progress Note - Text Progress Note Date: 04/23/22 Status post left breast lumpectomy and sentinel node biopsy on 9821. Postoperatively she has done well however she had some drainage from the medial aspect of her incision over the weekend. Her MARGARET drain had been removed on postoperative 222. She complains any fever or chills. Physical exam: Incision clean and dry Evidence of infection Some drainage is noted from the medial aspect of the incision which appears to be consistent with old hematoma Plan: Dressing change Continue present care Follow-up in 3 days
[2022-04-23 10:31] VITALS: BP 116/64; PULSE 73; RESP 18; TEMP 98.3
== END | disposition home or self-care (01) ==
LOC: WWCWWP 09:56
PROVIDERS: ATTEND Surgery
DX: Z53.9 Procedure and treatment not carried out, unspecified reason (principal)

== ENCOUNTER → 2022-04-25 | Outpatient (CLI) | payer MEDICARE, OTHER ==
--- NOTE | 2022-04-25 14:05 | P.PN ---
Progress Note - Text Progress Note Date: 04/25/22 Status post left breast lumpectomy and sentinel node biopsy on 9821. Postoperatively she has done well however she had some drainage from the medial aspect of her incision over the weekend. Her MARGARET drain had been removed on postoperative 222, second drain was removed 2 days ago. She states she feels much better at this time. She not complain any fever or chills. Physical exam: Incision clean and dry no evidence of infection Some drainage is noted from the medial aspect of the incision which appears to be consistent with old hematoma Plan: Dressing change Continue present care Follow-up 10 days CC; Dr. Obrien
[2022-04-25 14:11] VITALS: BP 135/76; PULSE 86; RESP 18
== END | disposition home or self-care (01) ==
LOC: WWCWWP 13:42
PROVIDERS: ATTEND Surgery
DX: Z53.9 Procedure and treatment not carried out, unspecified reason (principal)

== ENCOUNTER → 2022-05-06 | Outpatient (CLI) | payer MEDICARE, OTHER ==
[2022-05-06 12:52] VITALS: BP 139/74; PULSE 75; RESP 17; TEMP 98.5
--- NOTE | 2022-05-06 12:56 | P.PN ---
Progress Note - Text Progress Note Date: 05/06/22 Status post left breast lumpectomy and sentinel node biopsy on 9821. 7 nodes all (-), all margins (-). Postoperatively she has done well however she had some drainage from the medial aspect of her incision over the weekend. Her MARGARET drain had been removed on postoperative 222, second drain was removed 2 days ago. She states she feels much better at this time. She not complain any fever or chills. Physical exam: Incision clean and dry; some slight breakdown of the trifurcation at the in ferior aspect of the T limb which is healing well and granulating no evidence of infection no drainage of concern at this time Note reviewed from radiation oncology Plan: will follow up with medical oncology radiation oncology follow up here in 1 month CC; Dr. Obrien
== END | disposition home or self-care (01) ==
LOC: WWCWWP 12:07
PROVIDERS: ATTEND Surgery
DX: Z53.9 Procedure and treatment not carried out, unspecified reason (principal)

== ENCOUNTER → 2022-05-06 | Outpatient (CLI) | payer MEDICARE, OTHER ==
[2022-05-06 17:46] LABS: Basophils # (A) 0.05 X 10*3/uL (0.00-0.10); Basophils % (A) 0.7 %; Eosinophils # (A) 0.57 X 10*3/uL (0.04-0.35); Eosinophils % (A) 8.5 %; HCT 42.1 % (37.2-46.3); HGB 13.1 g/dL (12.0-15.0); Immature Grans, Automated 0.6 %; Lymphocytes # (A) 1.92 X 10*3/uL (0.90-5.00); Lymphocytes % (A) 28.6 %; MCH 31.2 pg (27.0-32.0); MCHC 31.1 g/dL (32.0-37.0); MCV 100.2 fL (80.0-97.0); Mean Platelet Volume 9.8 fL (9.5-12.2); Monocytes # (A) 0.64 X 10*3/uL (0.20-1.00); Monocytes % (A) 9.5 %; NRBC Per 100 WBC 0 /100 WBCS (0.0-0.0); Neutrophils # (A) 3.49 X 10*3/uL (1.80-7.70); Neutrophils % (A) 52.1 %; Platelet Count 335 X 10*3/uL (140-440); RDW 13.4 % (11.5-14.5); WBC 6.71 X 10*3/uL (4.50-10.00)
[2022-05-06 18:11] LABS: % Iron Saturation 34.47 (12.00-45.00); African American GFR (CKD) 67.5 (60.0-200.0); Albumin 4.6 g/dL (3.8-4.9); Albumin/Globulin Ratio 1.59 (1.60-3.17); Anion Gap 13.6 mmol/L (10.00-18.00); BUN/Creat Ratio 12.1 Ratio (12.00-20.00); Blood Urea Nitrogen 12.1 mg/dL (9.0-27.0); Carbon Dioxide 24.4 mmol/L (20.0-27.5); Globulin 2.9 g/dL (1.6-3.3); Non-African American GFR(CKD) 58.2 (60.0-200.0); T4, Free (Free Thyroxine) 1.08 ng/dL (0.800-1.800); Total Bilirubin 0.4 mg/dL (0.30-1.20); Total Protein 7.5 g/dL (6.2-8.2)
== END | disposition home or self-care (01) ==
LOC: LABWHC1 12:11
PROVIDERS: ATTEND Internal Medicine
DX: E87.1 Hypo-osmolality and hyponatremia (principal); E61.1 Iron deficiency; E03.9 Hypothyroidism, unspecified
CPT/HCPCS: 36415; 80053; 82533; 82607; 82746; 83540; 83550; 83735; 84439; 84443; 85025

== ENCOUNTER → 2022-06-18 | Outpatient (CLI) | payer OTHER ==
--- NOTE | 2022-06-18 18:43 | US ---
EXAMINATION TYPE: US kidneys/renal and bladder DATE OF EXAM: 06/18/2022 COMPARISON: Correlation CT 03/23/2022 CLINICAL HISTORY: 67-year-old female N28.9 DISORDER OF KIDNEY AND URETER. TECHNIQUE: Multiple sonographic images of the kidneys and bladder are obtained. FINDINGS: EXAM MEASUREMENTS: Right Kidney: 10.9x 4.1 x 4.5 cm Left Kidney: 10.8 x 4.1 x 4.8 cm Right Kidney: There is a round echogenic lesion measuring 1.2 x 1.2 x 1.0 cm in the upper pole cortex . No hydronephrosis. Left Kidney: No hydronephrosis. Bladder: Incompletely distention limits evaluation. IMPRESSION: 1. No hydronephrosis. 2. A round 1.2 cm cortical lesion upper pole right kidney. Retrospectively, when correlating with th e patient's CT of 03/23/2022, we note fat density in this region. 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
== END | disposition home or self-care (01) ==
LOC: RADUSWWP 12:08
PROVIDERS: ATTEND Internal Medicine
DX: N28.9 Disorder of kidney and ureter, unspecified (principal)
CPT/HCPCS: 76770

== ENCOUNTER → 2022-10-11 | Outpatient (CLI) | payer MEDICARE ==
--- NOTE | 2022-10-14 18:34 | MM ---
Reason for Exam: Screening (asymptomatic). Last screening mammogram was performed 9 month(s) ago. Patient History: Menarche at age 10. First Full-Term at age 19. Left ovary removed at age 47. Right ovary removed at age 47. Hysterectomy at age 47. Postmenopausal. Breast cancer, left, age 66. Breast cancer, left, age 66. Previous chest radiation therapy at age 67. 04/04/2022, Lumpectomy on the Left side. 04/04/2022, Malignant MG pre op needle loc LT on the left side. 02/06/2022, Malignant US biopsy breast VAD LT on the left side. Sister had breast cancer, age 71. Prior Study Comparison: 07/19/2021 Bilateral MG 3D screening mammo w/cad, [facility]. 01/24/2022 Bilateral MG 3D screening mammo w/cad, [facility]. 02/06/2022 Left MG diagnostic mammo LT wo CAD., [facility]. Tissue Density: There are scattered fibroglandular densities. Findings: Analyzed By CAD. Though cervical and posttreatment changes left breast. Overall breast size on the right has also decreased. Query any interval reduction. Benign oil cyst calcifications on the right. Some increased areas of density in the lateral subareolar region of the right breast partially disperse on 3-D images. Subtle low density nodularity lateral left breast middle depth probably a cyst. Not clearly seen on the MLO view. Given that this is the patient's first postoperative exam, recommend six-month follow-up to reassess these probably benign findings. Overall Assessment: Probably benign, BI-RAD 3 Management: Diagnostic Mammogram of both breasts in 6 months. 1. Patient should continue monthly self breast exams. 2. A clinical breast exam by your physician is recommended on an annual basis. 3. This exam should not preclude additional follow-up of suspicious palpable abnormalities. Electronically signed and approved by: Seble Sheffield M.D. Radiologist
== END | disposition home or self-care (01) ==
LOC: RADMAMWWP 11:21
PROVIDERS: ATTEND Internal Medicine
DX: Z12.31 Encounter for screening mammogram for malignant neoplasm of breast (principal); Z78.0 Asymptomatic menopausal state; Z80.3 Family history of malignant neoplasm of breast
CPT/HCPCS: 77063; 77067

== ENCOUNTER → 2023-04-14 | Outpatient (CLI) | payer MEDICARE ==
--- NOTE | 2023-04-14 11:42 | MM ---
Reason for Exam: Hx of breast cancer, conservation therapy. Last screening mammogram was performed 6 month(s) ago. Patient History: Menarche at age 10. First Full-Term at age 19. Left ovary removed at age 47. Right ovary removed at age 47. Hysterectomy at age 47. Postmenopausal. Breast cancer, left, age 66. Breast cancer, left, age 66. Previous chest radiation therapy at age 67. 04/04/2022, Lumpectomy on the Left side. 04/04/2022, Malignant MG pre op needle loc LT on the left side. 02/06/2022, Malignant US biopsy breast VAD LT on the left side. 2021, Radiation Therapy on the left side. Sister had breast cancer, age 71. Tissue Density: The breast tissue is heterogeneously dense. This may lower the sensitivity of mammography. Findings: Analyzed By CAD. Bilateral benign-appearing calcifications. Left breast clips. No new suspicious masses, calcifications or distortions. Overall Assessment: Benign, BI-RAD 2 Management: Screening Mammogram of both breasts in 1 year. Results were given to the patient verbally at the time of exam. Patient should continue monthly self-breast exams. A clinical breast exam by your physician is recommended on an annual basis. This exam should not preclude additional follow-up of suspicious palpable abnormalities. Note on Juliana scores and lifetime risk: 1. A Juliana score greater than 3% is considered moderate risk. If this is the case, consider specialist referral to assess eligibility for a risk reducing agent. 2. If overall lifetime risk for the development of breast cancer is 20% or higher, the patient may qualify for future screening with alternating mammogram and breast MRI. Electronically signed and approved by: Raphael Daniel DO
== END | disposition home or self-care (01) ==
LOC: RADMAMWWP 11:02
PROVIDERS: ATTEND Internal Medicine
DX: R92.1 Mammographic calcification found on diagnostic imaging of breast (principal); Z78.0 Asymptomatic menopausal state; Z80.3 Family history of malignant neoplasm of breast; Z85.3 Personal history of malignant neoplasm of breast
CPT/HCPCS: 77066; G0279; 77062

== ENCOUNTER 2023-05-30 11:04 | Emergency (ER) | payer MEDICARE ==
[2023-05-30 11:27] VITALS: TEMP 97.9
[2023-05-30] MEDS ORDERED: KETOROLAC 15 MG/ML 1 ML VIAL IVP STA (11:43)
[2023-05-30] MEDS ORDERED: LIDOCAINE 5% PATCH TOPICAL STA (11:43)
[2023-05-30 12:10] LABS: Basophils % (A) 1 %; Eosinophils # (A) 0.2 k/uL (0-0.7); Eosinophils % (A) 4 %; HCT 42.4 % (34.0-46.0); HGB 13.9 gm/dL (11.4-16.0); Lymphocytes # (A) 1.5 k/uL (1.0-4.8); Lymphocytes % (A) 31 %; MCH 30.6 pg (25.0-35.0); MCHC 32.8 g/dL (31.0-37.0); MCV 93.5 fL (80.0-100.0); Monocytes # (A) 0.4 k/uL (0-1.0); Monocytes % (A) 8 %; Neutrophils # (A) 2.6 k/uL (1.3-7.7); Neutrophils % (A) 54 %; Platelet Count 273 k/uL (150-450); RBC 4.54 m/uL (3.80-5.40); RDW 12.7 % (11.5-15.5); WBC 4.8 k/uL (3.8-10.6)
[2023-05-30 12:22] LABS: ALT 45 U/L (4-34); AST 57 U/L (14-36); African American GFR (CKD) 84 (>60 ml/min/1.73 sqM); Albumin 4.3 g/dL (3.5-5.0); Alkaline Phosphatase 83 U/L (38-126); Anion Gap 12 mmol/L; Blood Urea Nitrogen 11 mg/dL (7-17); Calcium 9.8 mg/dL (8.4-10.2); Carbon Dioxide 24 mmol/L (22-30); Chloride 100 mmol/L (98-107); Glucose 119 mg/dL (74-99); Magnesium 1.8 mg/dL (1.6-2.3); Non-African American GFR(CKD) 73 (>60 ml/min/1.73 sqM); Potassium 5.1 mmol/L (3.5-5.1); Sodium 136 mmol/L (137-145); Total Bilirubin 0.7 mg/dL (0.2-1.3); Total Protein 7.1 g/dL (6.3-8.2)
--- NOTE | 2023-05-30 12:26 | XR ---
EXAMINATION TYPE: XR chest 2V DATE OF EXAM: 05/30/2023 COMPARISON: None INDICATION: Chest pain TECHNIQUE: Frontal and lateral views of the chest are obtained. FINDINGS: The heart size is normal. The pulmonary vasculature is normal. The lungs are clear. IMPRESSION: 1. No acute pulmonary process.
[2023-05-30 12:28] LABS: INR 1.1 (<1.2); Partial Thromboplastin Time 23.4 sec (22.0-30.0); Prothrombin Time 11.5 sec (10.0-12.5)
--- NOTE | 2023-05-30 12:59 | ED ---
General Adult HPI - General Chief complaint: Back Pain/Injury Stated complaint: left neck and arm pain Time Seen by Provider: 05/30/23 11:15 Source: patient, RN notes reviewed, old records reviewed Mode of arrival: ambulatory Limitations: no limitations - History of Present Illness Initial comments: Patient is a 67-year-old female presents in the department complaining of left shoulder and back pain. States she was playing with her grandchild 2 days ago when she began expressing a tightness in her left shoulder. Seems to radiate up the side of her left neck towards her left shoulder and down back. Worse with movement. Has not taken any analgesic medications. Is chronically on a muscle relaxer with minimal improvement. Denies any chest pain, shortness breath, abdominal pain, nausea, vomiting, diaphoresis. No other acute complaints at thi s time. Presents for further evaluation at this time.No significant cardiac history. - Related Data Home Medications Medication Instructions Recorded Confirmed FLUoxetine HCL 40 mg PO DAILY 05/29/21 05/06/22 Fexofenadine HCl [Luisana Allergy] 180 mg PO DAILY 05/29/21 05/06/22 Levothyroxine Sodium [Synthroid] 50 mcg PO DAILY 05/29/21 05/06/22 Montelukast [Singulair] 10 mg PO HS 05/29/21 05/06/22 Multivitamin/Iron/Folic Acid 1 tab PO DAILY 05/29/21 05/06/22 [Centrum Complete Multivit Tab] amLODIPine [Norvasc] 10 mg PO DAILY 05/29/21 05/06/22 buPROPion [Wellbutrin] 75 mg PO BID 05/29/21 05/06/22 methocarbamoL [Methocarbamol] 500 mg PO TID 01/30/22 05/06/22 Potassium Chloride ER [K-Dur 20] 20 meq PO DAILY 04/04/22 05/06/22 Acetaminophen-Codeine 300-30mg 1 - 2 tab PO Q4-6H PRN 04/23/22 05/06/22 [Tylenol w/codeine #3] Ciprofloxacin HCl [Cipro] 500 mg PO Q12HR 04/23/22 05/06/22 Previous Rx's Medication Instructions Recorded Losartan [Cozaar] 50 mg PO DAILY #30 tab 05/31/21 Cyclobenzaprine [Flexeril] 5 mg PO TID PRN 6 Days #18 tablet 09/13/21 hydrOXYzine HCL [Atarax] 50 mg PO TID PRN #15 tab 03/23/22 Lidocaine 5% Patch [Lidoderm 5% 1 patch TOPICAL DAILY PRN 14 Days 05/30/23 Patch] #14 patch Allergies Allergy/AdvReac Type Severity Reaction Status Date / Time [facility] [[facility] Allergy Rash/Hives Verified 05/30/23 11:08 Penicillins Allergy Rash/Hives Verified 05/30/23 11:08 Review of Systems ROS Statement: Those systems with pertinent positive or pertinent negative responses have been documented in the HPI. Review of Systems: CONST: Denies fever EYES: Denies blurry vision ENT: Denies nasal congestion C/V: Denies Chest pain RESP: Denies shortness of breath GI: Denies abdominal pain : Denies dysuria SKIN: Denies rash. MSK: Endorses back pain NEURO: Denies headache ROS Other: All systems not noted in ROS Statement are negative. Past Medical History Past Medical History: Cancer, Eye Disorder, Hypertension, Osteoarthritis (OA), Thyroid Disorder Additional Past Medical History / Comment(s): heart murmur. LT BREAST CANCER. SEEN IN THE ER 03/22/22 FOR ABD PAIN-DX WITH DIVERTICULITIS. BEGINNING CATARACTS History of Any Multi-Drug Resistant Organisms: None Reported Past Surgical History: Cholecystectomy, Hysterectomy, Joint Replacement, Tonsillectomy Additional Past Surgical History / Comment(s): Bilat knee repalcement. COLONOSCOPY Past Anesthesia/Blood Transfusion Reactions: No Reported Reaction Past Psychological History: Anxiety, Depression Smoking Status: Never smoker Past Alcohol Use History: Daily Past Drug Use History: None Reported - Past Family History Mother Family Medical History: No Reported History General Exam - General Exam Comments Initial Comments: General: Appears in no acute distress. HEAD: Normal with no signs of head trauma. EYES: PERRLA, EOMI, conjunctiva normal, no discharge. ENT: Hearing grossly intact, normal oropharynx. RESPIRATORY: Clear breath sounds bilaterally. No wheezes, rales, or rhonchi. C/V: Regular rate and rhythm. S1 and S2 auscultated, no edema, peripheral pulses 2+ and intact throughout ABD: Abd is soft, nontender, nondistended EXT: Patient has tetanus palpation over the left trapezius muscle. No obvious deformities. SKIN: No rashes or lesions observed on exposed skin. NEURO: Alert and oriented 4. Limitations: no limitations Course Vital Signs 05/30/23 05/30/23 05/30/23 11:06 11:30 12:00 Temperature 97.9 F Pulse Rate 86 75 80 Respiratory 20 16 14 Rate Blood Pressure 164/90 158/110 153/87 O2 Sat by Pulse 99 97 98 Oximetry 05/30/23 13:00 Temperature Pulse Rate 78 Respiratory 15 Rate Blood Pressure 159/86 O2 Sat by Pulse 98 Oximetry Medical Decision Making - Medical Decision Making Was pt. sent in by a medical professional or institution (, PA, JEWELRY CONSULTANT, urgent care, hospital, or assisted...) When possible be specific @ -No Did you speak to anyone other than the patient for history (EMS, parent, family, police, friend...)? What history was obtained from this source @ -No Did you review nursing and triage notes (agree or disagree)? Why? @ -I reviewed and agree with nursing and triage notes Were old charts reviewed (outside hosp., previous admission, EMS record, old EKG, old radiological studies, urgent care reports/EKG's, assisted records)? Report findings @ -No old charts were reviewed Differential Diagnosis (chest pain, altered mental status, abdominal pain women, abdominal pain men, vaginal bleeding, weakness, fever, dyspnea, syncope, headache, dizziness, GI bleed, back pain, seizure, CVA, palpatations, mental health, musculoskeletal)? @ -Differential Musculoskeletal Muscular strain, contusion, ligament sprain, fracture, arthritis, septic arthritis, bursitis, cellulitis, muscle spasm, nerve compression, DVT, arterial occlusion, herpes zoster, electrolyte abnormality, tumor.... This is not meant to be in all inclusive list EKG interpreted by me (3pts min.). @ -As above X-rays interpreted by me (1pt min.). @ -Chest x-ray revealed no obvious acute cardio pulmonary process. CT interpreted by me (1pt min.). @ -None done U/S interpreted by me (1pt. min.). @ -None done What testing was considered but not performed or refused? (CT, X-rays, U/S, labs)? Why? @ -None What meds were considered but not given or refused? Why? @ -None Did you discuss the management of the patient with other professionals (professionals i.e. , PA, JEWELRY CONSULTANT, lab, RT, psych nurse, manager social responsibility, steam box tender, teacher, data officer, caseworker protective services)? Give summary @ -No Was smoking cessation discussed for >3mins.? @ -No Was critical care preformed (if so, how long)? @ -No Were there social determinants of health that impacted care today? How? (Homelessness, low income, unemployed, alcoholism, drug addiction, transportation, low edu. Level, literacy, decrease access to med. care, [place] [facility], rehab)? @ -No Was there de-escalation of care discussed even if they declined (Discuss DNR or withdrawal of care, Hospice)? DNR status @ -No What co-morbidities impacted this encounter? (DM, HTN, Smoking, COPD, CAD, Cancer, CVA, ARF, Chemo, Hep., AIDS, mental health diagnosis, sleep apnea, morbid obesity)? @ -None Was patient admitted / discharged? Hospital course, mention meds given and route, prescriptions, significant lab abnormalities, going to OR and other pertinent info. @ -Based on the patient's presentation and physical exam, I'm concerned for was likely a muscle strain in her trapezius muscle and the left however cannot rule out atypical ACS at this time. No cardiac risk factors. We will obtain cardiac workup. We will supply the patient with analgesia with lidocaine patch, as well as IV Toradol. She was in agreement this plan. Vital signs within acceptable limits. EKG showed no signs of acute ischemia. Chest x-ray unremarkable. Laboratory studies within acceptable limits. I treated the patient results of her workup. She is feeling improved. Discussed she expressed a muscle strain. She'll be discharged home at this time. She was in agreement this plan. Strict return precautions discussed. I will provide the patient with a prescription for trapezius muscle strain. I instructed the patient to follow up with their PCP in the next 1-3 days. I explained that the patient should return to the emergency department if they experience any worsening symptoms. Strict return precautions were discussed with the patient. The patient expressed understanding of these instructions. I answered all questions that the patient had. The patient was discharged home in good condition with their prescriptions and follow up information. Undiagnosed new problem with uncertain prognosis? @ -No Drug Therapy requiring intensive monitoring for toxicity (Heparin, Nitro, Insulin, Cardizem)? @ -No Were any procedures done? @ -No Diagnosis/symptom? @ -Trapezius muscle strain Acute, or Chronic, or Acute on Chronic? @ -Acute Uncomplicated (without systemic symptoms) or Complicated (systemic symptoms)? @ -Uncomplicated Side effects of treatment? @ -No Exacerbation, Progression, or Severe Exacerbation? @ -No Poses a threat to life or bodily function? How? (Chest pain, [place], [place], pneumonia, PE, COPD, DKA, ARF, appy, cholecystitis, CVA, Diverticulitis, Homicidal, Suicidal, threat to staff... and all critical care pts) @ -No - Lab Data Result diagrams: 05/30/23 11:43 05/30/23 11:43 Lab Results 05/30/23 05/30/23 05/30/23 Range/Units 11:43 11:43 11:43 WBC 4.8 (3.8-10.6) k/uL RBC 4.54 (3.80-5.40) m/uL Hgb 13.9 (11.4-16.0) gm/dL Hct 42.4 (34.0-46.0) % MCV 93.5 (80.0-100.0) fL MCH 30.6 (25.0-35.0) pg MCHC 32.8 (31.0-37.0) g/dL RDW 12.7 (11.5-15.5) % Plt Count 273 (150-450) k/uL MPV 7.0 Neutrophils % 54 % Lymphocytes % 31 % Monocytes % 8 % Eosinophils % 4 % Basophils % 1 % Neutrophils # 2.6 (1.3-7.7) k/uL Lymphocytes # 1.5 (1.0-4.8) k/uL Monocytes # 0.4 (0-1.0) k/uL Eosinophils # 0.2 (0-0.7) k/uL Basophils # 0.0 (0-0.2) k/uL PT 11.5 (10.0-12.5) sec INR 1.1 (<1.2) APTT 23.4 (22.0-30.0) sec Sodium 136 L (137-145) mmol/L Potassium 5.1 (3.5-5.1) mmol/L Chloride 100 (98-107) mmol/L Carbon Dioxide 24 (22-30) mmol/L Anion Gap 12 mmol/L BUN 11 (7-17) mg/dL Creatinine 0.83 (0.52-1.04) mg/dL Est GFR (CKD-EPI)AfAm 84 (>60 ml/min/1.73 sqM) Est GFR (CKD-EPI)NonAf 73 (>60 ml/min/1.73 sqM) Glucose 119 H (74-99) mg/dL Calcium 9.8 (8.4-10.2) mg/dL Magnesium 1.8 (1.6-2.3) mg/dL Total Bilirubin 0.7 (0.2-1.3) mg/dL AST 57 H (14-36) U/L ALT 45 H (4-34) U/L Alkaline Phosphatase 83 (38-126) U/L Troponin I (0.000-0.034) ng/mL Total Protein 7.1 (6.3-8.2) g/dL Albumin 4.3 (3.5-5.0) g/dL 05/30/23 Range/Units 11:43 WBC (3.8-10.6) k/uL RBC (3.80-5.40) m/uL Hgb (11.4-16.0) gm/dL Hct (34.0-46.0) % MCV (80.0-100.0) fL MCH (25.0-35.0) pg MCHC (31.0-37.0) g/dL RDW (11.5-15.5) % Plt Count (150-450) k/uL MPV Neutrophils % % Lymphocytes % % Monocytes % % Eosinophils % % Basophils % % Neutrophils # (1.3-7.7) k/uL Lymphocytes # (1.0-4.8) k/uL Monocytes # (0-1.0) k/uL Eosinophils # (0-0.7) k/uL Basophils # (0-0.2) k/uL PT (10.0-12.5) sec INR (<1.2) APTT (22.0-30.0) sec Sodium (137-145) mmol/L Potassium (3.5-5.1) mmol/L Chloride (98-107) mmol/L Carbon Dioxide (22-30) mmol/L Anion Gap mmol/L BUN (7-17) mg/dL Creatinine (0.52-1.04) mg/dL Est GFR (CKD-EPI)AfAm (>60 ml/min/1.73 sqM) Est GFR (CKD-EPI)NonAf (>60 ml/min/1.73 sqM) Glucose (74-99) mg/dL Calcium (8.4-10.2) mg/dL Magnesium (1.6-2.3) mg/dL Total Bilirubin (0.2-1.3) mg/dL AST (14-36) U/L ALT (4-34) U/L Alkaline Phosphatase (38-126) U/L Troponin I <0.012 (0.000-0.034) ng/mL Total Protein (6.3-8.2) g/dL Albumin (3.5-5.0) g/dL Disposition Clinical Impression: Trapezius muscle strain Disposition: HOME SELF-CARE Condition: Good Instructions (If sedation given, give patient instructions): Muscle Strain (ED) Prescriptions: Lidocaine 5% Patch [Lidoderm 5% Patch] 1 patch TOPICAL DAILY PRN 14 Days #14 patch PRN Reason: Pain Is patient prescribed a controlled substance at d/c from ED?: No Referrals: Solomon Obrien MD [Primary Care Provider] - 1-2 days Time of Disposition: 12:50
[2023-05-30 13:23] VITALS: BP 159/86; PULSE 78; RESP 15
== END 2023-05-30 13:25 | disposition home or self-care (01) ==
LOC: EC 11:04
DX: S29.012A Strain of muscle and tendon of back wall of thorax, initial encounter (principal); I10 Essential (primary) hypertension; E07.9 Disorder of thyroid, unspecified; F41.9 Anxiety disorder, unspecified; F32.A Depression, unspecified; Z79.899 Other long term (current) drug therapy; Z79.890 Hormone replacement therapy; Z88.0 Allergy status to penicillin; Z88.8 Allergy status to other drugs, medicaments and biological substances; X58.XXXA Exposure to other specified factors, initial encounter
CPT/HCPCS: 36415; 93005; 80053; 83735; 84484; 85025; 85610; 85730; 71046; 99284; 96374; J1885

== ENCOUNTER → 2023-06-27 | Outpatient (CLI) | payer MEDICARE ==
[2023-06-27 16:15] VITALS: BP 148/82; PULSE 97; RESP 18; TEMP 98.1
--- NOTE | 2023-06-27 16:37 | P.PN ---
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 Trevino on 02-15-22 regarding a mammographic abnormality in the left breast. The patient had a bilateral mammogram [place] [facility] [place] [id number]. This revealed in the central left breast at middle depth a 1.4 cm lesion. On the right some benign oil cyst and calcifications were noted. An area of focal asymmetry was noted. Ultrasound of both breasts was recommended. Ultrasound of both breasts was performed. That in the right did not reveal anything of concern. That on the left revealed a lesion for which core biopsy was [place]. [place] [address] of the lesion in the left breast at 10:00. This revealed an invasive well-differentiated ductal carcinoma grade 1. It is ER/Pr+ and HER- 2 negative, G1. The patient did not feel any lumps masses or nodules of concern in either breast prior to her workup. She has not had any recent trauma or infection in the breast. She has not had any prior breast biopsies. Oncotype DX: 0 [place] [id number]; she has not recommended to receive neoadjuvant therapy Patient was offered but declined genetic testing at this time 04-04-22 left breast lumpectomy and SNB; all margins (-), 7 nodes all (-). radiation therapy started on 06-04-22 completed 4 weeks adjuvant endocrine therapy: anastrazole starated on 07-23-22 bilateral mammogram on 04-14-23 BIRAD 2 She does not complain of any new lumps masses or nodules of concern in either breast. She is concerned secondary to the asymmetry of her breast. It is difficult to find clothes fit. The difference in size also causes strain on her back. Caffeine: 1 cup tea/day nicotine: none hormones: none; BCP; 2 years stopped 30 years ago chocolate: occasional Family history: sister: breast cancer mother: stomach cancer smoker Hormonal History: menarche: 10 , age at first : 20, patient did not breast feed menopause: hysterectomy at 39; took ovaries, done for cyst no cancer hormones: none Surgical history: Total abdominal hysterectomy right shoulder bilateral knee replacement tonsil gallbladder left breast lumpectomy carpel tunnel bilateral Medical History: hypothyroid HTN anxiety/depression - Constitutional Constitutional: Denies chills, Denies fever - EENT Eyes: bilateral dry eye, denies blurred vision, denies pain Ears: deny: decreased hearing, tinnitus Ears, nose, mouth and throat: Reports headache, Denies sore throat - Breasts Breasts: bilateral: as per HPI - Cardiovascular Cardiovascular: Denies chest pain, Denies shortness of breath - Respiratory Comment: asthma Respiratory: Denies cough - Gastrointestinal Gastrointestinal: Reports abdominal pain, Reports diarrhea, Denies nausea, Denies vomiting - Genitourinary (Female) Genitourinary: Denies dysuria, Denies hematuria - Menstruation Menstruation: Reports post hysterectomy - Musculoskeletal Comment: neck and upper back pain sees physical therapy Musculoskeletal: Denies myalgias - Integumentary Integumentary: Denies pruritus, Denies rash - Neurological Neurological: Denies numbness, Denies weakness - Psychiatric Psychiatric: Reports anxiety, Reports depression - Endocrine Comment: hypothyroid - Hematologic/Lymphatic Comment: none - Allergic/Immunologic Allergic/Immunologic: Reports seasonal allergies Past Medical History Past Medical History: Hypertension, Osteoarthritis (OA), Thyroid Disorder Additional Past Medical History / Comment(s): heart murmur History of Any Multi-Drug Resistant Organisms: None Reported Past Surgical History: Cholecystectomy, Hysterectomy, Joint Replacement, Tonsillectomy Additional Past Surgical History / Comment(s): Bilat knee repalcement Past Anesthesia/Blood Transfusion Reactions: No Reported Reaction Past Psychological History: Anxiety, Depression Smoking Status: Never smoker Past Alcohol Use History: Daily Additional Past Alcohol Use History / Comment(s): drinks 2-3 glasses wine daily Past Drug Use History: None Reported Medications and Allergies Home Medications Medication Instructions Recorded Confirmed Type FLUoxetine HCL 40 mg PO DAILY 05/29/21 02/15/22 History Fexofenadine HCl [Luisana Allergy] 180 mg PO DAILY 05/29/21 02/15/22 History Levothyroxine Sodium [Synthroid] 50 mcg PO DAILY 05/29/21 02/15/22 History Montelukast [Singulair] 10 mg PO HS 05/29/21 02/15/22 History Multivitamin/Iron/Folic Acid 1 tab PO DAILY 05/29/21 02/15/22 History [Centrum Complete Multivit Tab] Omeprazole [PriLOSEC] 20 mg PO BID 05/29/21 02/15/22 History amLODIPine [Norvasc] 5 mg PO DAILY 05/29/21 02/15/22 History buPROPion [Wellbutrin] 75 mg PO BID 05/29/21 02/15/22 History Losartan [Cozaar] 50 mg PO DAILY #30 tab 05/31/21 02/15/22 Rx Cyclobenzaprine [Flexeril] 5 mg PO TID PRN 6 Days #18 tablet 09/13/21 02/15/22 Rx methocarbamoL [Methocarbamol] 500 mg PO TID 01/30/22 02/15/22 History Allergies Allergy/AdvReac Type Severity Reaction Status Date / Time cefaclor [From [facility]] Allergy Rash/Hives Verified 02/15/22 13:13 Penicillins Allergy Rash/Hives Verified 02/15/22 13:13 Objective - Vital Signs Vital signs: Vital Signs Temp 98.1 F 06/27/23 16:03 Pulse 97 06/27/23 16:03 Resp 18 06/27/23 16:03 BP 148/82 06/27/23 16:03 Pulse Ox 96 06/27/23 16:03 FiO2 Intake & Output 06/26/23 06/27/23 06/27/23 18:59 06:59 18:59 Weight 82.1 kg - Constitutional General appearance: Present: cooperative - EENT Eyes: Present: EOMI ENT: Present: hearing grossly normal - Neck Neck: Present: normal ROM - Respiratory Respiratory: bilateral: CTA - Cardiovascular Rhythm: regular Heart sounds: normal: S1, S2 - Integumentary Integumentary: Present: normal turgor - Musculoskeletal Musculoskeletal: Present: gait normal - Psychiatric Psychiatric: Present: A&O x's 3, appropriate affect, intact judgment & insight - Additional findings Additional findings: Breast exam: BRA: 46D Inspection: Bilateral grade 3 ptosis, right breast larger than left breast, very asymmetric Palpation: Right breast: Multi-positional exam fibrocystic changes no dominant masses or nodules of concern Right axilla: No adenopathy of concern Left breast: Multi-positional exam fibrocystic changes no dominant masses or nodules post radiation and surgical changes Left axilla: No adenopathy of concern Assessment and Plan Assessment: Impression: Impression: Stage IA left breast invasive ductal carcinoma Fibrosis breast changes Anxiety/depression Hypertension Hypothyroid Asymmetry of the breast symptomatic Plan: Right breast reduction mammoplasty Risk and benefits of the procedure discussed with the patient. Risks include but are not limited to bleeding, infection, reaction to the anesthetic. There is a risk of necrosis of the nipple areolar complex as well as decreased sensation to the nipple areolar complex. Additionally the patient understands that she could see a plastic surgeon if she wished to and has declined. CC: Dr. Obrien
== END ==
LOC: WWCWWP 15:54
PROVIDERS: ATTEND Surgery
DX: C50.912 Malignant neoplasm of unspecified site of left female breast (principal); E03.9 Hypothyroidism, unspecified; F32.A Depression, unspecified; F41.9 Anxiety disorder, unspecified; I10 Essential (primary) hypertension; M19.90 Unspecified osteoarthritis, unspecified site; N64.89 Other specified disorders of breast; N60.19 Diffuse cystic mastopathy of unspecified breast; Z80.3 Family history of malignant neoplasm of breast; Z79.890 Hormone replacement therapy; Z90.49 Acquired absence of other specified parts of digestive tract; Z96.653 Presence of artificial knee joint, bilateral; Z88.1 Allergy status to other antibiotic agents; Z88.0 Allergy status to penicillin

== ENCOUNTER 2023-07-01 07:01 | Day surgery (SDC) | payer MEDICARE ==
[2023-06-26 15:21] VITALS: BMI 31.8
[~2023-07-01 07:01] MED LIST changes: +HYDROmorphone 0.5 MG/0.5 ML SYRINGE IVP PRN; -LIDOCAINE 1% (10MG/ML) FOR IV START INTRADERMA PRN; -MIDAZOLAM 2 MG/2 ML VIAL IV PRN; -Pre Op ABX Message 1 EACH MISC MISCELLANE ONE; +SCOPOLAMINE 1 MG/72 HR PATCH TRANSDERM ONE
[2023-07-01 08:13] VITALS: RESP 16
[2023-07-01] MEDS ORDERED: PROPOFOL 10 MG/ML 20 ML VIAL IV ONE (08:21)
[2023-07-01] MEDS ORDERED: ROCURONIUM 10 MG/ML (5 ML VIAL) IV ONE (08:21)
[2023-07-01] MEDS ORDERED: NEOSTIGMINE 1 MG/ML 10 ML VIAL ONE (08:21)
[2023-07-01] MEDS ORDERED: GLYCOPYRROLATE 0.2 MG/ML 2 ML VIAL ONE (08:21)
[2023-07-01] MEDS ORDERED: MIDAZOLAM 2 MG/2 ML VIAL ONE (08:21)
[2023-07-01] MEDS ORDERED: HYDROmorphone (PF) 1 MG/ML ONE (08:21)
[2023-07-01] MEDS ORDERED: PHENYLEPHRINE-0.9% NACL SYG 1,000 MCG/10 ML SYRINGE ONE (08:21)
[2023-07-01] MEDS ORDERED: SUCCINYLCHOLINE CHLORIDE 200 MG/10 ML VIAL IV ONE (08:21)
[2023-07-01] MEDS ORDERED: fentaNYL (PF) 50 MCG/ML 2 ML AMP ONE (08:21)
[2023-07-01] MEDS ORDERED: LIDOCAINE 1% INJ 10MG/ML (20 ML MDV) ONE (08:21)
[2023-07-01] MEDS ORDERED: LACTATED RINGERS 1,000 ML IV ONE (09:47)
--- NOTE | 2023-07-01 11:23 | P.OP ---
Date of Procedure: 07/01/23 Preoperative Diagnosis: Right breast macromastia Postoperative Diagnosis: Same/asymmetry of the breast secondary to left breast cancer surgery Procedure(s) Performed: Right breast reduction mammoplasty Anesthesia: GAETANO Surgeon: Amarilys Morel Estimated Blood Loss (ml): 20 IV fluids (ml): 1,400 Pathology: other (Breast tissue) Disposition: same day Indications for Procedure: right breast macromastia Asymmetry of the breasts secondary to left breast surgery for cancer Operative Findings: Right breast fibrofatty tissue Description of Procedure: The patient is status post left breast lumpectomy for cancer and has asymmetry of the breast secondary to this. She has right breast macromastia. The patient wished to have a right breast reduction mammoplasty. The patient was seen in the preoperative markings were placed for a Bernard pattern inferior pedicle reduction mammoplasty. She was then brought to the operative suite. Following induction of anesthesia the right and left breasts were prepped and draped in a sterile fashion. The markings were reinforced using a marking pen. The inferior pedicle was de-epithelialized. Following this excision of breast tissue was performed both medially and laterally, as well as superior to the nipple areolar complex. Hemostasis was attained using electrocautery device as well as the Harmonic scalpel. Dissection was performed down to the pectoralis muscle. Following this superior, medial, and lateral flaps were developed. Hemostasis was attained using electrocautery device. The specimen weighed approximately 1 pound. The deep tissues were closed using interrupted 3-0 Vicryl suture. This was done following securing a #10 MARGARET drain in the lateral aspect of the breast. The inferior pedicle was secured using a 3-0 Vicryl interrupted suture. Following this 3-0 Vicryl interrupted sutures were placed in the deep tissues. A 3-0 Vicryl running subcutaneous suture was placed. A 4-0 Monocryl suture was then placed. The apex of the superior aspect of the vertical limb was marked with a 42 cookie cutter. The skin at this site was resected. The nipple areolar complex was matured. The nipple aerolar complex was secured using interrupted 3-0 Vicryl suture. This was followed by a running 3-0 Vicryl subcutaneous suture. A 4-0 Monocryl subcuticular suture was then placed. Surgical glue was placed. The patient tolerated the procedure in stable condition. All instrument and sponge counts were correct at the end of the case.
[2023-07-01] MEDS ORDERED: ALBUTEROL NEBULIZED 2.5 MG/3 ML INHALATION ONE (11:43)
[2023-07-01 11:52] VITALS: TEMP 97.3
[2023-07-01] MEDS ORDERED: HYDROcodone/APAP 5-325MG 1 EACH TAB PO ONE (12:17)
[2023-07-01] MEDS ORDERED: HYDROcodone/APAP 5-325MG 1 EACH TAB ONE (12:17)
[2023-07-01 13:03] VITALS: BP 121/78; PULSE 98
== END 2023-07-01 13:08 | disposition home or self-care (01) ==
LOC: OR 07:01
PROVIDERS: ATTEND Surgery
DX: C50.911 Malignant neoplasm of unspecified site of right female breast (principal); N60.81 Other benign mammary dysplasias of right breast; N62 Hypertrophy of breast; E07.9 Disorder of thyroid, unspecified; I10 Essential (primary) hypertension; J45.909 Unspecified asthma, uncomplicated; M19.90 Unspecified osteoarthritis, unspecified site; F41.9 Anxiety disorder, unspecified; F32.A Depression, unspecified; K21.9 Gastro-esophageal reflux disease without esophagitis; Z79.51 Long term (current) use of inhaled steroids; Z79.890 Hormone replacement therapy; Z79.899 Other long term (current) drug therapy; Z85.3 Personal history of malignant neoplasm of breast; Z88.0 Allergy status to penicillin; Z88.1 Allergy status to other antibiotic agents; Z98.890 Other specified postprocedural states; Z96.659 Presence of unspecified artificial knee joint; Z90.710 Acquired absence of both cervix and uterus
CPT/HCPCS: 88305; 84132; 19318; J2250; J0330; J1100; J2710; J0690; J2405; J2001; J3010; J1170 ×2; J2704; J1644; J2371

== ENCOUNTER → 2023-07-10 | Outpatient (CLI) | payer MEDICARE ==
[2023-07-10 16:24] VITALS: BP 151/81; PULSE 104; RESP 18; TEMP 98.5
--- NOTE | 2023-07-10 16:34 | P.PN ---
Progress Note - Text Progress Note Date: 07/10/23 Jayshree is status post right breast reduction mammoplasty on 07-01-23. This was done for asymmetry related to left breast cancer surgery. This was for a left breast stage IA invasive ductal cancer in 2021. Examination: Lungs: Clear Heart: Regular rate and rhythm Incision: Clean and dry MARGARET drain minimal Plan: DC MARGARET drain DC sutures Follow-up in 1 week CC; Dr. Obrien
== END ==
LOC: WWCWWP 15:38
PROVIDERS: ATTEND Surgery
DX: I49.9 Cardiac arrhythmia, unspecified (principal); Z88.5 Allergy status to narcotic agent; Z88.0 Allergy status to penicillin; Z88.1 Allergy status to other antibiotic agents

== ENCOUNTER → 2023-07-18 | Outpatient (CLI) | payer MEDICARE ==
--- NOTE | 2023-07-18 14:09 | P.PN ---
Progress Note - Text Progress Note Date: 07/18/23 Jayshree is status post right breast reduction mammoplasty on 07-01-23. This was done for asymmetry related to left breast cancer surgery. This was for a left breast stage IA invasive ductal cancer in 2021. Examination: Lungs: Clear Heart: Regular rate and rhythm Incision: Clean and dry Plan: follow up in 4 months follow up with medical oncology CC; Dr. Obrien Additional CC's: Solomon Obrien
[2023-07-18 14:16] VITALS: BP 156/84; PULSE 89; RESP 17; TEMP 98.1
== END ==
LOC: WWCWWP 13:17
PROVIDERS: ATTEND Surgery
DX: C50.919 Malignant neoplasm of unspecified site of unspecified female breast (principal); Z88.5 Allergy status to narcotic agent; Z88.0 Allergy status to penicillin; Z88.1 Allergy status to other antibiotic agents

== ENCOUNTER → 2023-11-21 | Outpatient (CLI) | payer MEDICARE ==
[2023-11-21 10:27] VITALS: BP 130/79; PULSE 84; RESP 17; TEMP 98.3
--- NOTE | 2023-11-21 10:30 | P.PN ---
Subjective Progress Note Date: 11/21/23 Principal diagnosis: left breast stage I [id number] Principal diagnosis: stage IA left breast invasive ductal cancer 2021 History of Present Illness Chief Complaint: left breast invasive ductal cancer stage IA [id number] Jayshree is a 68 year old white female seen in consultation for Dr. Trevino on 02-15-22 regarding a mammographic abnormality in the left breast. The patient had a bilateral mammogram [place] [facility] [place] [id number]. This revealed in the central left breast at middle depth a 1.4 cm lesion. On the right some benign oil cyst and calcifications were noted. An area of focal asymmetry was noted. Ultrasound of both breasts was recommended. Ultrasound of both breasts was performed. That in the right did not reveal anything of concern. That on the left revealed a lesion for which core biopsy was recommended. Core biopsy was performed on of the lesion in the left breast at 10:00. This revealed an invasive well-differentiated ductal carcinoma grade 1. It is ER/Pr+ and HER- 2 negative, G1. The patient did not feel any lumps masses or nodules of concern in either breast prior to her workup. She has not had any recent trauma or infection in the breast. She has not had any prior breast biopsies. Oncotype DX: 0 [place] [id number]; she has not recommended to receive neoadjuvant therapy Patient was offered but declined genetic testing at this time 04-04-22 left breast lumpectomy and SNB; all margins (-), 7 nodes all (-). radiation therapy started on 06-04-22 completed 4 weeks adjuvant endocrine therapy: anastrazole starated on 07-23-22; is continuing this bilateral mammogram on 04-14-23 BIRAD 2 right breast reduction on 07-01-23 She is not complaining of any new lumps masses or nodules of concern in either b reast Note Dr. Haley 08-19-2023 reviewed Caffeine: 1 cup tea/day nicotine: none hormones: none; BCP; 2 years stopped 30 years ago chocolate: occasional Family history: sister: breast cancer mother: stomach cancer smoker Hormonal History: menarche: 10 , age at first : 20, patient did not breast feed menopause: hysterectomy at 39; took ovaries, done for cyst no cancer hormones: none Surgical history: Total abdominal hysterectomy right shoulder bilateral knee replacement tonsil gallbladder left breast lumpectomy carpel tunnel bilateral Medical History: hypothyroid HTN anxiety/depression - Constitutional Constitutional: Denies chills, Denies fever - EENT Eyes: bilateral dry eye, denies blurred vision, denies pain Ears: deny: decreased hearing, tinnitus Ears, nose, mouth and throat: Reports headache, Denies sore throat - Breasts Breasts: bilateral: as per HPI - Cardiovascular Cardiovascular: Denies chest pain, Denies shortness of breath - Respiratory Comment: asthma Respiratory: Denies cough - Gastrointestinal Gastrointestinal: Reports abdominal pain, Reports diarrhea, Denies nausea, Denies vomiting - Genitourinary (Female) Genitourinary: Denies dysuria, Denies hematuria - Menstruation Menstruation: Reports post hysterectomy - Musculoskeletal Comment: neck and upper back pain sees physical therapy Musculoskeletal: Denies myalgias - Integumentary Integumentary: Denies pruritus, Denies rash - Neurological Neurological: Denies numbness, Denies weakness - Psychiatric Psychiatric: Reports anxiety, Reports depression - Endocrine Comment: hypothyroid - Hematologic/Lymphatic Comment: none - Allergic/Immunologic Allergic/Immunologic: Reports seasonal allergies Past Medical History Past Medical History: Hypertension, Osteoarthritis (OA), Thyroid Disorder Additional Past Medical History / Comment(s): heart murmur History of Any Multi-Drug Resistant Organisms: None Reported Past Surgical History: Cholecystectomy, Hysterectomy, Joint Replacement, Tonsil lectomy Additional Past Surgical History / Comment(s): Bilat knee repalcement Past Anesthesia/Blood Transfusion Reactions: No Reported Reaction Past Psychological History: Anxiety, Depression Smoking Status: Never smoker Past Alcohol Use History: Daily Additional Past Alcohol Use History / Comment(s): drinks 2-3 glasses wine daily Past Drug Use History: None Reported Medications and Allergies Home Medications Medication Instructions Recorded Confirmed Type FLUoxetine HCL 40 mg PO DAILY 05/29/21 02/15/22 History Fexofenadine HCl [Liusana Allergy] 180 mg PO DAILY 05/29/21 02/15/22 History Levothyroxine Sodium [Synthroid] 50 mcg PO DAILY 05/29/21 02/15/22 History Montelukast [Singulair] 10 mg PO HS 05/29/21 02/15/22 History Multivitamin/Iron/Folic Acid 1 tab PO DAILY 05/29/21 02/15/22 History [Centrum Complete Multivit Tab] Omeprazole [PriLOSEC] 20 mg PO BID 05/29/21 02/15/22 History amLODIPine [Norvasc] 5 mg PO DAILY 05/29/21 02/15/22 History buPROPion [Wellbutrin] 75 mg PO BID 05/29/21 02/15/22 History Losartan [Cozaar] 50 mg PO DAILY #30 tab 05/31/21 02/15/22 Rx Cyclobenzaprine [Flexeril] 5 mg PO TID PRN 6 Days #18 tablet 09/13/21 02/15/22 Rx methocarbamoL [Methocarbamol] 500 mg PO TID 01/30/22 02/15/22 History Allergies Allergy/AdvReac Type Severity Reaction Status Date / Time cefaclor [From [facility]] Allergy Rash/Hives Verified 02/15/22 13:13 Penicillins Allergy Rash/Hives Verified 02/15/22 13:13 Objective - Vital Signs Vital signs: Vital Signs Temp 98.3 F 11/21/23 10:08 Pulse 84 11/21/23 10:08 Resp 17 11/21/23 10:08 BP 130/79 11/21/23 10:08 Pulse Ox 98 11/21/23 10:08 FiO2 Intake & Output 11/20/23 11/21/23 11/21/23 18:59 06:59 18:59 Weight 81.647 kg - Constitutional General appearance: Present: cooperative - EENT Eyes: Present: EOMI ENT: Present: hearing grossly normal - Neck Neck: Present: normal ROM - Respiratory Respiratory: bilateral: CTA - Cardiovascular Rhythm: regular Heart sounds: normal: S1, S2 - Gastrointestinal General gastrointestinal: Present: soft - Integumentary Integumentary: Present: normal turgor - Musculoskeletal Musculoskeletal: Present: gait normal - Psychiatric Psychiatric: Present: A&O x's 3, appropriate affect, intact judgment & insight - Additional findings Additional findings: Breast exam: BRA: 46C Inspection: Bilateral grade 2 ptosis, bilateral well-healed scars from prior martita luis a Palpation: Right breast: Well-healed scars from prior surgery, multi positional exam no dominant masses or nodules of concern Right axilla: No adenopathy of concern Left breast: Multi-positional exam fibrocystic changes no dominant masses or nodules post radiation and surgical changes Left axilla: No adenopathy of concern Assessment and Plan Assessment: Impression: Impression: Stage IA left breast invasive ductal carcinoma, status post lumpectomy and SNB 2021, Fibrosis breast changes Anxiety/depression Hypertension Hypothyroid right breast reduction mammoplasty on 07-01-23 Plan: bilateral mammogram due in Mar 2024, follow up after this follow up with medical oncology continue anastrozole CC: Dr. Obrien
== END ==
LOC: WWCWWP 09:56
PROVIDERS: ATTEND Surgery
DX: R92.1 Mammographic calcification found on diagnostic imaging of breast (principal); N60.32 Fibrosclerosis of left breast; F32.A Depression, unspecified; F41.9 Anxiety disorder, unspecified; I10 Essential (primary) hypertension; E03.9 Hypothyroidism, unspecified; N64.89 Other specified disorders of breast; Z79.890 Hormone replacement therapy; Z80.3 Family history of malignant neoplasm of breast; Z88.0 Allergy status to penicillin; Z88.1 Allergy status to other antibiotic agents; Z79.899 Other long term (current) drug therapy; Z88.5 Allergy status to narcotic agent; Z85.3 Personal history of malignant neoplasm of breast; Z98.890 Other specified postprocedural states

== ENCOUNTER → 2024-02-03 | Outpatient (CLI) | payer MEDICARE ==
--- NOTE | 2024-02-03 12:54 | XR ---
EXAMINATION TYPE: XR knee 4V LT DATE OF EXAM: 02/03/2024 12:28 PM CLINICAL INDICATION:Female, 68 years old with history of M25.562 L knee pain; [facility] COMPARISON: None. TECHNIQUE: XR knee 4V LT; examined in Frontal, lateral and oblique projections. FINDINGS: Status post total knee arthroplasty changes with hardware in appropriate alignment and in tact. No evidence of fracture. IMPRESSION: Status post total knee arthroplasty changes with hardware intact and appropriate alignment. No fractu res identified.
== END | disposition home or self-care (01) ==
LOC: RADXRMAIN 11:52
PROVIDERS: ATTEND Internal Medicine
DX: M25.562 Pain in left knee (principal); Z96.652 Presence of left artificial knee joint

== ENCOUNTER → 2024-02-03 | Outpatient (CLI) | payer MEDICARE ==
[2024-02-03 17:48] LABS: Basophils # (A) 0.05 X 10*3/uL (0.00-0.10); Basophils % (A) 1.1 %; Eosinophils % (A) 4.6 %; HGB 12.6 g/dL (12.0-15.0); Lymphocytes # (A) 1.31 X 10*3/uL (0.90-5.00); Lymphocytes % (A) 29.9 %; MCH 25.4 pg (27.0-32.0); MCHC 31.5 g/dL (32.0-37.0); MCV 80.5 FL (80.0-97.0); Mean Platelet Volume 9.6 FL (9.5-12.2); Monocytes # (A) 0.46 X 10*3/uL (0.20-1.00); Monocytes % (A) 10.5 %; NRBC Per 100 WBC 0 X 10*3/uL (0.00-0.01); Neutrophils # (A) 2.33 X 10*3/uL (1.80-7.70); Neutrophils % (A) 53.2 %; Platelet Count 272 X 10*3/uL (140-440); RBC 4.97 X 10*6/uL (4.10-5.20); RDW 15.3 % (11.5-14.5); WBC 4.38 X 10*3/uL (4.50-10.00)
[2024-02-03 17:52] LABS: ALT 49 U/L (8-44); AST 80 U/L (13-35); Albumin 4.3 g/dL (3.8-4.9); Albumin/Globulin Ratio 2.05 Ratio (1.60-3.17); Alkaline Phosphatase 80 U/L (41-126); Blood Urea Nitrogen 10.4 mg/dL (9.0-27.0); Calcium 9.1 mg/dL (8.7-10.3); Carbon Dioxide 24.3 mmol/L (21.6-31.8); Chloride 96 mmol/L (96-109); Globulin 2.1 g/dL (1.6-3.3); Glucose 134 mg/dL (70-110); LDL Cholesterol,Calculated 91.4 mg/dL (0.0-131.0); Magnesium 1.8 mg/dL (1.5-2.4); Potassium 4.4 mmol/L (3.5-5.5); Sodium 132 mmol/L (135-145); Total Bilirubin 0.7 mg/dL (0.3-1.2); Total Protein 6.4 g/dL (6.2-8.2)
[2024-02-03 18:23] LABS: % Iron Saturation 76.45 (12.00-45.00); Iron 224 UG/DL (50-170); T4, Free (Free Thyroxine) 1.62 ng/dL (0.80-1.80); Total Iron Binding Capacity 293 UG/DL (228-460)
== END | disposition home or self-care (01) ==
LOC: LABWHC1 11:24
PROVIDERS: ATTEND Internal Medicine
DX: Z00.00 Encounter for general adult medical examination without abnormal findings (principal); M85.80 Other specified disorders of bone density and structure, unspecified site; E87.1 Hypo-osmolality and hyponatremia; E61.1 Iron deficiency
CPT/HCPCS: 36415; 80053; 80061; 82306; 82607; 82728; 82746; 83540; 83550; 83735; 84439; 84443; 85025

== ENCOUNTER → 2024-02-19 | Outpatient (CLI) | payer MEDICARE ==
--- NOTE | 2024-02-19 07:46 | US ---
EXAMINATION TYPE: US liver DATE OF EXAM: 02/19/2024 COMPARISON: CT 2020, US Renal 2021 CLINICAL INDICATION: Female, 68 years old with history of R74.01 TRANSAMINITIS; Cholecystectomy, aguillon saminitis. TECHNIQUE: Multiple sonographic images of the right upper quadrant are obtained. FINDINGS: EXAM MEASUREMENTS: Liver Length: 15.1 cm Gallbladder Wall: Surgically absent CBD: 1.0 cm Right Kidney: 10.4 x 4.9 x 4.6 cm CARTOON ARTIST NOTES: Exam is limited due to gas. Pancreas: Tail was obscured. Liver: Appears coarse in echotexture with increased echogenicity. Gallbladder: Surgically absent Evidence for sonographic Terrazas's sign: No CBD: Appears wnl post-cholecystectomy. Right Kidney: Hyperechoic lesion seen upper pole: 1.2 x 1.6 x 1.0 cm. IMPRESSION: Probable hepatic steatosis.
== END | disposition home or self-care (01) ==
LOC: RADUSWWP 07:05
PROVIDERS: ATTEND Internal Medicine
DX: R74.01 Elevation of levels of liver transaminase levels (principal); Z90.49 Acquired absence of other specified parts of digestive tract
CPT/HCPCS: 76705

== ENCOUNTER → 2024-03-12 | Outpatient (CLI) | payer MEDICARE | END | disposition home or self-care (01) | LOC: LABWHC1 14:43 | PROVIDERS: ATTEND Internal Medicine | DX: K75.81 Nonalcoholic steatohepatitis (NASH) (principal) | CPT/HCPCS: 36415; 80053; 80074; 82248; 82390; 82525; 83516; 83540; 83550; 85027; 86038; 86645; 86665 ==

== ENCOUNTER → 2024-03-26 | Outpatient (CLI) | payer MEDICARE ==
--- NOTE | 2024-03-26 14:23 | CT ---
EXAMINATION TYPE: CT brain wo con CT DLP: 1090.4 mGycm, Automated exposure control for dose reduction was used. DATE OF EXAM: 03/26/2024 2:13 PM COMPARISON: None. CLINICAL INDICATION: Female, 68 years old with history of H53.8 OTHER VISUAL DISTURBANCES R51.9 HEADA GABBY UNS, headache and dizziness TECHNIQUE: Brain: Axial CT images of the brain were obtained with coronal and sagittal reformats created and rev iewed. Contrast used: None. Oral contrast used: None. FINDINGS: Brain: Extra-axial spaces: No abnormal extra-axial fluid collections. Ventricular system: Dilatation in proportion to cerebral atrophy. Cerebral parenchyma: Cerebral atrophy. No acute intraparenchymal hemorrhage or mass effect. The davis -white junction is well differentiated. Scattered hypoattenuating areas are seen within the white mat ter. Cerebellum: Unremarkable. Mass effect: No evidence of midline shift. Intracranial vasculature: unremarkable Soft tissues: Normal. Calvarium/osseous structures: No depressed skull fracture. Paranasal sinuses and mastoid air cells: Mild scattered paranasal sinus disease. Visualized orbits: Orbital contents are intact. IMPRESSION: No acute intracranial process.
== END | disposition home or self-care (01) ==
LOC: RADCTMAIN 13:40
PROVIDERS: ATTEND Internal Medicine
DX: H53.8 Other visual disturbances (principal); R51.9 Headache, unspecified
CPT/HCPCS: 70450

== ENCOUNTER → 2024-03-26 | Outpatient (CLI) | payer MEDICARE ==
[2024-03-27 02:40] LABS: HCT 38.3 % (37.2-46.3); HGB 11.9 g/dL (12.0-15.0); MCH 23.6 pg (27.0-32.0); MCHC 31.1 g/dL (32.0-37.0); MCV 75.8 FL (80.0-97.0); NRBC Per 100 WBC 0 X 10*3/uL (0.00-0.01); Platelet Count 329 X 10*3/uL (140-440); RBC 5.05 X 10*6/uL (4.10-5.20); RDW 15.2 % (11.5-14.5); WBC 5.27 X 10*3/uL (4.50-10.00)
[2024-03-27 05:03] LABS: Hepatitis A Antibody IgM Nonreactive (Nonreactive); Hepatitis B Surface Antigen Nonreactive (Nonreactive); Hepatitis C IgG Antibody Nonreactive (Nonreactive)
[2024-03-27 05:09] LABS: % Iron Saturation 59.32 (12.00-45.00); ALT 31 U/L (8-44); AST 32 U/L (13-35); Albumin 4.9 g/dL (3.8-4.9); Albumin/Globulin Ratio 2.13 Ratio (1.60-3.17); Alkaline Phosphatase 93 U/L (41-126); Bilirubin, Conjugated <0.20 mg/dL (0.20-0.40); Bilirubin,Unconjugated >0.20 mg/dL (0.20-1.00); Blood Urea Nitrogen 11.2 mg/dL (9.0-27.0); Calcium 10.1 mg/dL (8.7-10.3); Carbon Dioxide 20.9 mmol/L (21.6-31.8); Chloride 95 mmol/L (96-109); Globulin 2.3 g/dL (1.6-3.3); Glucose 117 mg/dL (70-110); Iron 175 UG/DL (50-170); Potassium 4.8 mmol/L (3.5-5.5); Sodium 130 mmol/L (135-145); Total Bilirubin 0.4 mg/dL (0.3-1.2); Total Iron Binding Capacity 295 UG/DL (228-460); Total Protein 7.2 g/dL (6.2-8.2)
[2024-03-27 05:26] LABS: Ceruloplasmin 24.5 mg/dL (20.0-60.0)
[2024-03-29 04:41] LABS: EBV - VCA IgM <10.0 U/mL (<36.0)
[2024-03-29 15:19] LABS: Hepatitis B Core IgM Nonreactive (Nonreactive)
[2024-03-30 13:44] LABS: Smooth Muscle Antibody 6 UNITS (<20)
== END | disposition home or self-care (01) ==
LOC: LABWHC1 14:37
PROVIDERS: ATTEND Internal Medicine
DX: K75.81 Nonalcoholic steatohepatitis (NASH) (principal)
CPT/HCPCS: 36415; 80053; 80074; 82248; 82390; 82525; 83516; 83540; 83550; 85027; 86038; 86645; 86665

== ENCOUNTER → 2024-04-02 | Outpatient (CLI) | payer MEDICARE ==
[2024-04-02 16:40] LABS: HCT 35.3 % (37.2-46.3); MCH 23.5 pg (27.0-32.0); MCHC 31.2 g/dL (32.0-37.0); MCV 75.3 FL (80.0-97.0); Mean Platelet Volume 9.1 FL (9.5-12.2); NRBC Per 100 WBC 0 X 10*3/uL (0.00-0.01); Platelet Count 344 X 10*3/uL (140-440); RBC 4.69 X 10*6/uL (4.10-5.20); RDW 15.3 % (11.5-14.5); WBC 5.49 X 10*3/uL (4.50-10.00)
[2024-04-02 20:16] LABS: Blood Urea Nitrogen 10.6 mg/dL (9.0-27.0); Calcium 9.6 mg/dL (8.7-10.3); Carbon Dioxide 23.4 mmol/L (21.6-31.8); Chloride 99 mmol/L (96-109); Glucose 122 mg/dL (70-110); Iron 154 UG/DL (50-170); Potassium 4.8 mmol/L (3.5-5.5); Sodium 136 mmol/L (135-145); Total Iron Binding Capacity 279 UG/DL (228-460)
== END | disposition home or self-care (01) ==
LOC: LABWHC1 10:36
PROVIDERS: ATTEND Internal Medicine
DX: E87.1 Hypo-osmolality and hyponatremia (principal); E83.19 Other disorders of iron metabolism
CPT/HCPCS: 36415; 80048; 82533; 83540; 83550; 83930; 84443; 85027

== ENCOUNTER → 2024-04-19 | Outpatient (CLI) | payer MEDICARE ==
--- NOTE | 2024-04-19 09:04 | MM ---
Reason for Exam: Hx of breast cancer, conservation therapy. Last screening mammogram was performed 12 month(s) ago. Patient History: Menarche at age 10. First Full-Term at age 19. Left ovary removed at age 47. Right ovary removed at age 47. Hysterectomy at age 47. Postmenopausal. Breast cancer, left, age 66. Breast cancer, left, age 66. Previous chest radiation therapy at age 67. 04/04/2022, Lumpectomy on the Left side. 04/04/2022, Malignant MG pre op needle loc LT on the left side. 02/06/2022, Malignant US biopsy breast VAD LT on the left side. 2021, Radiation Therapy on the left side. Sister had breast cancer, age 71. Prior Study Comparison: 02/06/2022 Left MG diagnostic mammo LT wo CAD., [facility]. 10/11/2022 Bilateral MG 3D screening mammo w/cad, [facility]. 04/14/2023 Bilateral MG 3D diag mammo w/cad [facility], [facility]. Tissue Density: The breasts are heterogeneously dense, which may obscure small masses. Findings: Analyzed By CAD. There is some increased densities within the posterior right breast. Patient has had a lift surgery in June 2023 over the interval findings can be post surgical nature. Left breast has some heterogenous calcification which appears postsurgical in nature as well. There is surgical clips within the posterior left breast. Benign scattered calcifications are present bilaterally. Overall Assessment: Benign, BI-RAD 2 Management: Screening Mammogram of both breasts in 1 year. A negative mammogram report should not preclude additional follow up of suspicious palpable abnormalities. Patient should continue monthly self breast exam. A clinical breast exam by your physician is recommended on an annual basis and results should be correlated with mammographic findings. Note on Juliana scores and lifetime risk: 1. A Juliana score greater than 3% is considered moderate risk. If this is the case, consider specialist referral to assess eligibility for a risk reducing agent. 2. If overall lifetime risk for the development of breast cancer is 20% or higher, the patient may qualify for future screening with alternating mammogram and breast MRI. [facility], , 04/19/2024 9:02 AM. Electronically signed and approved by: Benny Ferguson D.O. Radiologis
== END | disposition home or self-care (01) ==
LOC: RADMAMWWP 08:33
PROVIDERS: ATTEND Surgery
DX: Z85.3 Personal history of malignant neoplasm of breast
CPT/HCPCS: 77062; 77066

== ENCOUNTER → 2024-04-19 | Outpatient (CLI) | payer MEDICARE ==
--- NOTE | 2024-04-26 21:21 | BD ---
EXAMINATION TYPE: Axial Bone Density DATE OF EXAM: 04/19/2024 CLINICAL HISTORY: 68 years old Female. ICD-10 CODE: C50.212 MALIG NEOPLASM OF UPPER-INNER QUADRANT O F Height: 63 Weight: 174.0 FRAX RISK QUESTIONS: Alcohol (3 or more units per day): no Family History (Parent hip fracture): no Glucocorticoids (More than 3mos): no (Ex: prednisone, prednisolone, methylprednisolone, dexamethasone, and hydrocortisone). History of Fracture in Adulthood: no Secondary Osteoporosis: 1. Type 1 Diabetes: no 2. Hyperthyroidism: no 3. Menopause before 45: no 4. Malnutrition: no 5. Chronic liver disease: no Rheumatoid Arthritis: no Current Tobacco Use: no RISK FACTORS HISTORY OF: Surgery to Spine/Hip(right/left)/Wrist (right/left): no MEDICATIONS: Thyroid Medications: levothyroxine How Lon plus years Osteoporosis Medications: fosamax How Lon years ago EXAM MEASUREMENTS: Bone mineral densitometry was performed using the [employer] System. Bone mineral density as measured about the Lumbar spine is: ----- L1-L4(G/cm2): 1.447 T Score Values are as follows: ----- L1: 1.3 ----- L2: 1.6 ----- L3: 1.7 ----- L4: 3.7 ----- L1-L4: 2.2 Z Score Values are as follows: ----- L1: 2.5 ----- L2: 2.8 ----- L3: 2.9 ----- L4: 4.9 ----- L1-L4: 3.4 Bone mineral density has: increased 4.6 % since study of: 03.08.2022 Bone mineral density about the R hip (g/cm2): 0.815 Bone mineral density about the L hip (g/cm2): 0.888 T Score values are as follows: -----R Neck: -2.2 -----L Neck: -1.0 -----R Total: -1.5 -----L Total: -0.9 Z Score values are as follows: -----R Neck: -0.9 -----L Neck: 0.4 -----R Total: -0.4 -----L Total: 0.2 Bone mineral density has: decreased -5.6 % since study of: 8. FRAX%s: The graph provided illustrates a 12.6% chance for a major osteoporotic fx and a 2.7% chance f or the hips probability for fx in 10 years time. IMPRESSION: Osteopenia (T Score between -2.5 and -1). There is slightly increased risk of fracture and the patient may be considered for treatment. Re-Screen 2-5 years. NOTE: T-SCORE=SD OF THE YOUNG ADULT MEAN. [facility], , 04/26/2024 9:19 PM
== END | disposition home or self-care (01) ==
LOC: RADBDWWP 08:29
PROVIDERS: ATTEND Internal Medicine
DX: C50.212 Malignant neoplasm of upper-inner quadrant of left female breast
CPT/HCPCS: 77080

== ENCOUNTER → 2024-04-21 | Outpatient (CLI) | payer MEDICARE ==
--- NOTE | 2024-04-21 15:51 | MR ---
EXAMINATION TYPE: MR brain and iac wo/w con DATE OF EXAM: 04/21/2024 3:45 PM CLINICAL INDICATION: Female, 68 years old with history of R42 DIZZINESS AND GIDDINESS, R51.9 HEADACHE , H53.8; PHH, Headaches, dizziness. COMPARISON: 03/26/2024 TECHNIQUE: Multi planar, multi sequence imaging was performed through the brain. Specialized thin s equences were obtained through the internal auditory canals. Pre-and post gadolinium sequences were obtained. MR contrast: IV Contrast: 7 cc Gadavist FINDINGS: The advis-white junctions, ventricular system, and cisterns appear unremarkable. Scattered foci of h igh T2 signal intensity are seen within the periventricular white matter. Midline structures show no abnormality. Diffusion-weighted imaging shows no evidence of restricted diffusion. The susceptibility weighted images do not reveal any evidence for micro-hemorrhage. The bone marrow signal is within normal limits. Paranasal sinuses and mastoid air cells: Mild scattered paranasal sinus disease. Visualized orbits: Orbital contents are intact. After administration of gadolinium, no abnormal enhancement is seen. The internal auditory canal sequences demonstrate no significant irregularity. The 7th cranial nerve s, 8 cranial nerves, and cerebellar pontine angles appear unremarkable. After the administration mckenna olinium, no abnormal enhancement is seen within the internal auditory canals. Vascular loop: None. IMPRESSION: 1. No evidence of intracranial mass nor acute/subacute CVA. 2. No evidence of internal auditory canal abnormality. 3. Nonspecific white matter changes, likely secondary to small vessel ischemic disease. [facility], , 04/21/2024 3:49 PM
== END | disposition home or self-care (01) ==
LOC: RADMRIMAIN 14:14
PROVIDERS: ATTEND Internal Medicine
DX: R42 Dizziness and giddiness (principal); R51.9 Headache, unspecified; H53.8 Other visual disturbances
CPT/HCPCS: 70553

== ENCOUNTER → 2024-04-22 | Outpatient (CLI) | payer MEDICARE ==
[2024-04-22 11:53] VITALS: BP 149/76; PULSE 93; RESP 17; TEMP 97.9
--- NOTE | 2024-04-22 12:06 | P.PN ---
Subjective Progress Note Date: 04/22/24 Principal diagnosis: left breast stage I IDC [id number] Principal diagnosis: stage IA left breast invasive ductal cancer 2021 History of Present Illness Chief Complaint: left breast invasive ductal cancer stage IA [id number] Jayshree is a 68 year old white female seen in consultation for Dr. Trevino on 02-15-22 regarding a mammographic abnormality in the left breast. The patient had a bilateral mammogram performed at [facility] [place] [id number]. This revealed in the central left breast at middle depth a 1.4 cm lesion. On the right some benign oil cyst and calcifications were noted. An area of focal asymmetry was noted. Ultrasound of both breasts was recommended. Ultrasound of both breasts was performed. That in the right did not reveal anything of concern. That on the left revealed a lesion for which core biopsy was recommended. Core biopsy was performed on of the lesion in the left breast at 10:00. This revealed an invasive well-differentiated ductal carcinoma grade 1. It is ER/Pr+ and HER- 2 negative, G1. The patient did not feel any lumps masses or nodules of concern in either breast prior to her workup. She has not had any recent trauma or infection in the breast. She has not had any prior breast biopsies. Oncotype DX: 0 [place] [id number]; she has not recommended to receive neoadjuvant therapy Patient was offered but declined genetic testing at that time 04-04-22 left breast lumpectomy and SNB; all margins (-), 7 nodes all (-). radiation therapy started on 06-04-22 completed 4 weeks adjuvant endocrine therapy: anastrazole starated on 07-23-22; is continuing this bilateral mammogram on 04-14-23 BIRAD 2 right breast reduction on 07-01-23 She is not complaining of any new lumps masses or nodules of concern in my she does complain of some increased fullness in the right breast in the upper inner quadrant region. She states this has been present for about 2 weeks. Bilateral mammogram 04-19-24 BIRAD 2 personally reviewed and interpreted Note Dr. Haely 12-12-23 reviewed; on annestrazole, Fosomax, vit D and calcium note radiation oncology reviewed 03-12-24 cavity boost to [id number] completed on 07-02-22,no evidence of recurrence Caffeine: 1 cup tea/day nicotine: none hormones: none; BCP; 2 years stopped 30 years ago chocolate: occasional Family history: sister: breast cancer mother: stomach cancer smoker Hormonal History: menarche: 10 , age at first : 20, patient did not breast feed menopause: hysterectomy at 39; took ovaries, done for cyst no cancer hormones: none Surgical history: Total abdominal hysterectomy right shoulder bilateral knee replacement tonsil gallbladder left breast lumpectomy carpel tunnel bilateral Medical History: hypothyroid HTN anxiety/depression - Constitutional Constitutional: Denies chills, Denies fever - EENT Eyes: bilateral dry eye, denies blurred vision, denies pain Ears: deny: decreased hearing, tinnitus Ears, nose, mouth and throat: Reports headache, Denies sore throat - Breasts Breasts: bilateral: as per HPI - Cardiovascular Cardiovascular: Denies chest pain, Denies shortness of breath - Respiratory Comment: asthma Respiratory: Denies cough - Gastrointestinal Gastrointestinal: Reports abdominal pain, Reports diarrhea, Denies nausea, D enies vomiting - Genitourinary (Female) Genitourinary: Denies dysuria, Denies hematuria - Menstruation Menstruation: Reports post hysterectomy - Musculoskeletal Comment: neck and upper back pain sees physical therapy Musculoskeletal: Denies myalgias - Integumentary Integumentary: Denies pruritus, Denies rash - Neurological Neurological: Denies numbness, Denies weakness - Psychiatric Psychiatric: Reports anxiety, Reports depression - Endocrine Comment: hypothyroid - Hematologic/Lymphatic Comment: none - Allergic/Immunologic Allergic/Immunologic: Reports seasonal allergies Past Medical History Past Medical History: Hypertension, Osteoarthritis (OA), Thyroid Disorder Additional Past Medical History / Comment(s): heart murmur History of Any Multi-Drug Resistant Organisms: None Reported Past Surgical History: Cholecystectomy, Hysterectomy, Joint Replacement, Tonsillectomy Additional Past Surgical History / Comment(s): Bilat knee repalcement Past Anesthesia/Blood Transfusion Reactions: No Reported Reaction Past Psychological History: Anxiety, Depression Smoking Status: Never smoker Past Alcohol Use History: Daily Additional Past Alcohol Use History / Comment(s): drinks 2-3 glasses wine daily Past Drug Use History: None Reported Medications and Allergies Home Medications Medication Instructions Recorded Confirmed Type FLUoxetine HCL 40 mg PO DAILY 05/29/21 02/15/22 History Fexofenadine HCl [Luisana Allergy] 180 mg PO DAILY 05/29/21 02/15/22 History Levothyroxine Sodium [Synthroid] 50 mcg PO DAILY 05/29/21 02/15/22 History Montelukast [Singulair] 10 mg PO HS 05/29/21 02/15/22 History Multivitamin/Iron/Folic Acid 1 tab PO DAILY 05/29/21 02/15/22 History [Centrum Complete Multivit Tab] Omeprazole [PriLOSEC] 20 mg PO BID 05/29/21 02/15/22 History amLODIPine [Norvasc] 5 mg PO DAILY 05/29/21 02/15/22 History buPROPion [Wellbutrin] 75 mg PO BID 05/29/21 02/15/22 History Losartan [Cozaar] 50 mg PO DAILY #30 tab 05/31/21 02/15/22 Rx Cyclobenzaprine [Flexeril] 5 mg PO TID PRN 6 Days #18 tablet 09/13/21 02/15/22 Rx methocarbamoL [Methocarbamol] 500 mg PO TID 01/30/22 02/15/22 History Allergies Allergy/AdvReac Type Severity Reaction Status Date / Time cefaclor [From [facility]] Allergy Rash/Hives Verified 02/15/22 13:13 Penicillins Allergy Rash/Hives Verified 02/15/22 13:13 Objective - Vital Signs Vital signs: Vital Signs Temp 97.9 F 04/22/24 11:50 Pulse 93 04/22/24 11:50 Resp 17 04/22/24 11:50 BP 149/76 04/22/24 11:50 Pulse Ox 99 04/22/24 11:50 FiO2 Intake & Output 04/21/24 04/22/24 04/22/24 18:59 06:59 18:59 Weight 78.471 kg - Constitutional General appearance: Present: cooperative - EENT Eyes: Present: EOMI ENT: Present: hearing grossly normal - Neck Neck: Present: normal ROM - Respiratory Respiratory: bilateral: CTA - Cardiovascular Rhythm: regular Heart sounds: normal: S1, S2 - Gastrointestinal General gastrointestinal: Present: soft - Integumentary Integumentary: Present: normal turgor - Musculoskeletal Musculoskeletal: Present: gait normal - Psychiatric Psychiatric: Present: A&O x's 3, appropriate affect, intact judgment & insight - Additional findings Additional findings: Breast exam: BRA: 46C Inspection: Bilateral grade 2 ptosis, bilateral well-healed scars from prior surgery Palpation: Right breast: Well-healed scars from prior surgery, multi positional fullness in the upper inner aspect of the right breast this most likely represents scar tissue Right axilla: No adenopathy of concern Left breast: Multi-positional exam fibrocystic changes no dominant masses or nodules post radiation and surgical changes Left axilla: No adenopathy of concern Assessment and Plan Assessment: Impression: Stage IA left breast invasive ductal carcinoma, status post lumpectomy and SNB 2021, Fibrosis breast changes Anxiety/depression Hypertension Hypothyroid right breast reduction mammoplasty on 07-01-23 bilateral mammogram 04-19-24 BIRAD 2 This upper inner aspect of the breast Plan: ultrasound upper inner aspect of the right breast with appointment to follow this Possible core biopsy of the area of fullness in the right breast bilateral mammogram due in Mar 2025, follow up after this follow up with medical oncology continue anastrozole follow up in 6 months CC: Dr. Obrien
== END ==
LOC: WWCWWP 10:41
PROVIDERS: ATTEND Surgery
DX: R92.8 Other abnormal and inconclusive findings on diagnostic imaging of breast (principal); C50.912 Malignant neoplasm of unspecified site of left female breast; F32.A Depression, unspecified; F41.9 Anxiety disorder, unspecified; I10 Essential (primary) hypertension; E03.9 Hypothyroidism, unspecified; N60.32 Fibrosclerosis of left breast; Z48.817 Encounter for surgical aftercare following surgery on the skin and subcutaneous tissue; Z80.3 Family history of malignant neoplasm of breast; Z98.890 Other specified postprocedural states; Z79.890 Hormone replacement therapy; Z88.0 Allergy status to penicillin; Z88.1 Allergy status to other antibiotic agents; Z88.5 Allergy status to narcotic agent; Z79.899 Other long term (current) drug therapy; Z17.0 Estrogen receptor positive status [ER+]

== ENCOUNTER → 2024-04-23 | Outpatient (CLI) | payer MEDICARE ==
--- NOTE | 2024-04-23 13:25 | USB ---
Reason for Exam: Clinical finding. Patient History: Menarche at age 10. First Full-Term at age 19. Left ovary removed at age 47. Right ovary removed at age 47. Hysterectomy at age 47. Postmenopausal. Breast cancer, left, age 66. Breast cancer, left, age 66. Previous chest radiation therapy at age 67. 04/04/2022, Lumpectomy on the Left side. 04/04/2022, Malignant MG pre op needle loc LT on the left side. 02/06/2022, Malignant US biopsy breast VAD LT on the left side. 2021, Radiation Therapy on the left side. Sister had breast cancer, age 71. Technique: Method: Targeted. Prior Study Comparison: 10/11/2022 Bilateral MG 3D screening mammo w/cad, [facility]. 04/14/2023 Bilateral MG 3D diag mammo w/cad [facility], [facility]. 04/19/2024 Bilateral MG 3D diag mammo w/cad [facility], [facility]. Findings: The upper inner quadrant of the right breast, the axilla of the right breast and the retroareolar of the right breast were scanned. There is an irregular area measuring 2.3 x 1.5 may correlate with the mammographic findings surgical in nature. Follow-up for stability 6 months is recommended and ultrasound. A small hypoechoic collection which may be postsurgical change at the 1:00 position 4 cm from the nipple. This measures 1.2 x 0.6 x 1.3 cm. Six-month follow-up ultrasound recommended.. Overall Assessment: Probably benign, BI-RAD 3 Management: Diagnostic Mammogram of the left breast in 6 months. Diagnostic Breast Ultrasound of the left breast in 6 months. A clinical breast exam by your physician is recommended on an annual basis and results should be correlated with mammographic findings. This exam should not preclude additional follow-up of suspicious palpable abnormalities. Results were given to the patient verbally at the time of exam. [facility], , 04/23/2024 1:21 PM. Electronically signed and approved by: Benny Ferguson D.O. Radiologis
== END | disposition home or self-care (01) ==
LOC: RADUSWWP 12:57
PROVIDERS: ATTEND Surgery
DX: Z85.3 Personal history of malignant neoplasm of breast (principal); N63.0 Unspecified lump in unspecified breast; Z78.0 Asymptomatic menopausal state; Z80.3 Family history of malignant neoplasm of breast; Z90.722 Acquired absence of ovaries, bilateral

== ENCOUNTER → 2024-08-12 | Day surgery (SDC) | payer MEDICARE ==
[2024-08-09 14:05] VITALS: BMI 30.1
[~2024-08-12] MED LIST changes: -DEXAMETHASONE SOD PHOSPHATE 4 MG/ML 1 ML VIAL IV ONE; -HEPARIN SODIUM,PORCINE/PF 5,000 UNIT/0.5 ML SYRINGE SQ PRN; -HYDROmorphone 0.5 MG/0.5 ML SYRINGE IVP PRN; +LIDOCAINE 1% (10MG/ML) FOR IV START INTRADERMA PRN; +LIDOCAINE 1% INJ 10MG/ML (20 ML MDV) ONE; -ONDANSETRON 4 MG/2 ML VIAL IVP ONE; +PROPOFOL 10 MG/ML 20 ML VIAL IV ONE; -SCOPOLAMINE 1 MG/72 HR PATCH TRANSDERM ONE
[2024-08-12] MEDS: SODIUM CHLORIDE 0.9% 500 ML 500 ML IV ONE (06:55)
[2024-08-12 07:04] VITALS: RESP 16; TEMP 97.6
[2024-08-12] MEDS: LIDOCAINE 2% INJ 20 MG/ML SQ ONE (07:10)
[2024-08-12 07:57] VITALS: BP 138/81; PULSE 84
--- NOTE | 2024-08-12 08:04 | OP ---
OPERATIVE REPORT DATE OF SERVICE : PROCEDURE PERFORMED: Bone marrow biopsy with general and local sedation. DESCRIPTION OF PROCEDURE: Jayshree was placed in the left lateral decubitus position with the right iliac crest palpated. Following administration of general sedation, three swabs of Betadine and three swabs of alcohol were used to sterilize the area followed by application of sterile drape. 10 mL of 1% lidocaine was used to anesthetize the periosteum. A 0.3 cm incision was then made into the subcutaneous tissue. A 4-inch Jamshidi needle was then advanced through the periosteum into the bone marrow. Approximately 17 mL of aspirate was obtained along with a 1.2 cm core sample. She had less than 1 mL of blood loss and tolerated the procedure without any complications. She returned to the postoperative area in stable condition. Samples will be sent for Morphology, flow cytometry, FISH, and cytogenetics. We will follow up on the results in the clinic. MMODL / IJN: [id number] /
[2024-08-12 09:10] LABS: Anisocytosis Slight; Basophils # (A) 0.1 k/uL (0-0.2); Basophils % (A) 1 %; Eosinophils # (A) 0.5 k/uL (0-0.7); Eosinophils % (A) 7 %; HCT 38.9 % (34.0-46.0); HGB 12.4 gm/dL (11.4-16.0); Lymphocytes # (A) 2.1 k/uL (1.0-4.8); Lymphocytes % (A) 30 %; MCH 24.9 pg (25.0-35.0); MCV 77.9 fL (80.0-100.0); Microcytosis Slight; Monocytes # (A) 0.6 k/uL (0-1.0); Monocytes % (A) 9 %; Neutrophils # (A) 3.6 k/uL (1.3-7.7); Neutrophils % (A) 51 %; Platelet Count 284 k/uL (150-450); RBC 4.99 m/uL (3.80-5.40); RDW 16.4 % (11.5-15.5); Reticulocyte % 1.9 % (0.5-2.0); WBC 7.1 k/uL (3.8-10.6)
[2024-08-12 09:24] LABS: Ovalocytes Present; Poikilocytosis (M) Present
== END ==
LOC: OR 05:31
PROVIDERS: ATTEND Internal Medicine
DX: C50.912 Malignant neoplasm of unspecified site of left female breast (principal); M19.90 Unspecified osteoarthritis, unspecified site; E78.5 Hyperlipidemia, unspecified; F10.90 Alcohol use, unspecified, uncomplicated; Z88.0 Allergy status to penicillin; Z88.8 Allergy status to other drugs, medicaments and biological substances; Z79.899 Other long term (current) drug therapy
CPT/HCPCS: 85025; 85045; 38222; J2003 ×2; J2704

== ENCOUNTER → 2024-10-01 | Outpatient (CLI) | payer MEDICARE ==
--- NOTE | 2024-10-01 18:11 | CA ---
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 67 - 155 / 56 - 104 cm??? LV Systolic Volume MOD BP 40.7 cm??? 22 - 58 / 19 - 49 cm??? LV Ejection Fraction MOD BP 58.4 % >= 55 % LV Cardiac Index MOD BP 2444.7 cm???/min???m??? LV Diastolic Volume MOD 4C 90.3 cm??? LV Systolic Volume MOD 4C 38.6 cm??? LV Ejection Fraction MOD 4C 57.3 % LV Cardiac Index MOD 4C 2217.2 cm???/min???m??? LV Diastolic Length 4C 6.8 cm LV Systolic Length 4C 5.6 cm LV Diastolic Volume MOD 2C 103.6 cm??? LV Systolic Volume MOD 2C 40.2 cm??? LV Ejection Fraction MOD 2C 61.2 % LV Cardiac Index MOD 2C 2718.1 cm???/min???m??? LV Diastolic Length 2C 7.0 cm LV Systolic Length 2C 6.2 cm Ascending Aorta Diameter 2.8 cm DOPPLER AV Peak Velocity 179.4 cm/s AV Peak Gradient 12.9 mmHg AV Mean Velocity 130.3 cm/s AV Mean Gradient 7.6 mmHg AV Velocity Time Integral 37.9 cm LVOT Peak Velocity 134.8 cm/s LVOT Peak Gradient 7.3 mmHg LVOT Velocity Time Integral 30.2 cm LVOT Stroke Volume 101.8 cm??? LVOT Stroke Volume Index 55.1 ml/m??? LVOT Cardiac Index 4364.1 cm???/min???m??? AV Area Cont Eq vti 2.7 cm??? AV Area Cont Eq pk 2.5 cm??? MV Peak Velocity 132.2 cm/s MV Peak Gradient 7.0 mmHg MV Mean Velocity 90.2 cm/s MV Mean Gradient 3.5 mmHg MV Velocity Time Integral 29.1 cm MV Area PHT 6.3 cm??? Mitral E Point Velocity 121.4 cm/s Mitral A Point Velocity 85.8 cm/s Mitral E to A Ratio 1.4 MV Deceleration Time 121.3 ms TR Peak Velocity 254.1 cm/s TR Peak Gradient 25.8 mmHg Right Atrial Pressure 5.0 mmHg Pulmonary Artery Systolic Pressu 30.8 mmHg Right Ventricular Systolic Press 30.8 mmHg PV Peak Velocity 88.7 cm/s PV Peak Gradient 3.1 mmHg FINDINGS Left Ventricle Left ventricular ejection fraction is estimated at 55-60 %. Mildly increased septal wall thickness. Left ventricular cavity size normal. No obvious regional wall motion abnormalities. Right Ventricle Normal right ventricular size and function. Right ventricular systolic pressure within normal limits. Right Atrium Normal right atrial size. Left Atrium Normal left atrial size. Mitral Valve Structurally normal mitral valve. Mitral annular calcification. No evidence for mitral valve prolapse. Mild mitral stenosis. Mild mitral regurgitation. Aortic Valve Trileaflet aortic valve. Aortic valve sclerosis. No aortic valve stenosis or regurgitation. Tricuspid Valve Structurally normal tricuspid valve. No tricuspid stenosis. Trace to mild tricuspid regurgitation. Pulmonic Valve Structurally normal pulmonic valve. No pulmonic stenosis. No pulmonic regurgitation. Pericardium No pericardial effusion. Aorta Normal size aortic root and proximal ascending aorta. CONCLUSIONS Patient awaiting chemotherapy Normal LV size and function ejection fraction 60% Previewed by: Dr. Adithya Perez MD (Electronically Signed) Final Date: 01 October 2024 18:10
[2024-10-01 21:06] LABS: Blood Urea Nitrogen 22.2 mg/dL (9.0-27.0); Calcium 9.5 mg/dL (8.7-10.3); Carbon Dioxide 18.9 mmol/L (21.6-31.8); Chloride 89 mmol/L (96-109); Glucose 117 mg/dL (70-110); Potassium 4.7 mmol/L (3.5-5.5); Sodium 126 mmol/L (135-145)
== END | disposition home or self-care (01) ==
LOC: RADECHMAIN 13:16
PROVIDERS: ATTEND Internal Medicine
DX: M79.89 Other specified soft tissue disorders (principal); E87.1 Hypo-osmolality and hyponatremia; I07.1 Rheumatic tricuspid insufficiency; I34.81 Nonrheumatic mitral (valve) annulus calcification
CPT/HCPCS: 80048; 82533; 83930; 83935; 84300; 93306

== ENCOUNTER 2024-10-21 13:18 | Emergency (ER) | payer MEDICARE ==
--- NOTE | 2024-10-21 14:49 | ED ---
General Adult HPI - General Source: patient Mode of arrival: ambulatory Limitations: no limitations <Dakota Bardales - Last Filed: 10/21/24 16:27> <Myra - Last Filed: 10/22/24 11:14> - General Stated complaint: Diarrhea - History of Present Illness Initial comments: Patient is a 69-year-old female with GERD, hypertension, osteoarthritis, asthma, history of diverticulitis presented to the ER with general abdominal cramping and diarrhea that started last Friday. Patient reported she was having up to 15-20 episodes of watery diarrhea last Friday and . Start taking Imodium yesterday and since then has had about 2 episodes of diarrhea this morning. Patient started taking sodium tablets last Friday and also had a possibly spoiled sandwich and the symptoms started afterwards. Patient has not been on any antibiotics recently. Patient denies any fever, chills, nausea, vomiting, chest pain, shortness of breath, dysuria, leg swelling, calf tenderness, hematochezia, melena. (Dakota Bardales) - Related Data Home Medications Medication Instructions Recorded Confirmed FLUoxetine HCL 40 mg PO DAILY 05/29/21 08/12/24 Fexofenadine HCl [Luisana Allergy] 180 mg PO DAILY 05/29/21 08/12/24 Levothyroxine Sodium [Synthroid] 50 mcg PO DAILY 05/29/21 08/12/24 Montelukast [Singulair] 10 mg PO HS 05/29/21 08/12/24 amLODIPine [Norvasc] 10 mg PO DAILY 05/29/21 08/12/24 buPROPion [Wellbutrin] 75 mg PO DAILY 05/29/21 08/12/24 methocarbamoL [Methocarbamol] 500 mg PO TID 01/30/22 08/12/24 Albuterol Inhaler [Ventolin Hfa 1 - 2 puff INHALATION Q6H PRN 06/26/23 08/12/24 Inhaler] Alendronate Sodium [Fosamax] 70 mg PO WEEKLY 06/26/23 08/12/24 Anastrozole [Arimidex] 1 mg PO DAILY 06/26/23 08/12/24 Cyanocobalamin (Vitamin B-12) 1,000 mcg PO DAILY 06/26/23 08/12/24 [Vitamin B-12] Fluticasone Nasal [place] [Flonase 1 spray EA NOSTRIL DAILY 06/26/23 08/12/24 Nasal [place]] Ibuprofen [Motrin Ib] 400 mg PO BID PRN 06/26/23 08/12/24 Meloxicam [Mobic] 15 mg PO DAILY 06/26/23 08/12/24 Multivit/Folic Acid/Vit K1 1 each PO DAILY 06/26/23 08/12/24 [One-A-Day Women's 50 Plus Tab] Omeprazole 20 mg PO BID 06/26/23 08/12/24 Potassium Chloride 10 meq PO DAILY 06/26/23 08/12/24 Previous Rx's Medication Instructions Recorded Losartan [Cozaar] 50 mg PO DAILY #30 tab 05/31/21 hydrOXYzine HCL [Atarax] 50 mg PO TID PRN #15 tab 03/23/22 Allergies Allergy/AdvReac Type Severity Reaction Status Date / Time cefaclor [From Ceclor] Allergy Rash/Hives Verified 10/21/24 13:36 hydrocodone Allergy Rash/Hives Verified 10/21/24 13:36 Penicillins Allergy Rash/Hives Verified 10/21/24 13:36 Review of Systems ROS Other: All systems not noted in ROS Statement are negative. Constitutional: Denies: fever, chills ENT: Denies: congestion Respiratory: Denies: cough, dyspnea, wheezes Cardiovascular: Denies: chest pain, palpitations Gastrointestinal: Reports: abdominal pain, diarrhea. Denies: nausea, vomiting, constipation, hematemesis, melena, hematochezia Genitourinary: Denies: urgency, dysuria, frequency, hematuria Neurological: Reports: weakness <Dakota Bardales - Last Filed: 10/21/24 16:27> ROS Other: All systems not noted in ROS Statement are negative. <Myra Walter - Last Filed: 10/22/24 11:14> ROS Statement: Those systems with pertinent positive or pertinent negative responses have been documented in the HPI. Past Medical History Past Medical History: Asthma, Cancer, Eye Disorder, GERD/Reflux, Hypertension, Osteoarthritis (OA), Thyroid Disorder Additional Past Medical History / Comment(s): heart murmur., left breast cancer with surgery, diverticulitis, beginning cataracts., back pain, bruise right arm from a fall., iron deficiency. History of Any Multi-Drug Resistant Organisms: MRSA Date of last positivie culture/infection: unknown MDRO Source:: post shoulder surgery ([place]) Past Surgical History: Breast Surgery, Cholecystectomy, Hysterectomy, Joint Replacement, Tonsillectomy Additional Past Surgical History / Comment(s): Bilat knee replacement, carpal tunnel prakash, right shoulder surgery. COLONOSCOPY Past Anesthesia/Blood Transfusion Reactions: No Reported Reaction Additional Past Anesthesia/Blood Transfusion Reaction / Comment(s): no blood transfusion reaction Past Psychological History: Anxiety, Depression Smoking Status: Never smoker Past Alcohol Use History: Daily - Past Family History Mother Family Medical History: No Reported History Sister(s) Family Medical History: Cancer Additional Family Medical History / Comment(s): breast <Dakota Bardales - Last Filed: 10/21/24 16:27> General Exam Limitations: no limitations <Dakota Bardales - Last Filed: 10/21/24 16:27> - General Exam Comments Initial Comments: GENERAL: This is a 69-year-old in no apparent distress at the time of examination. HEENT: Head is atraumatic, normocephalic. Pupils are equal, round, and reactive to light. Sclerae anicteric. Conjunctivae are clear. Mucus membranes of the mouth are moist. Neck is supple. RESPIRATORY: Clear to auscultation. No wheezes, rales, or rhonchi. No use of accessory muscles. Patient maintaining oxygen saturation greater than 92%. No chest wall tenderness is noted on palpation or with deep breathing. CARDIOVASCULAR: Regular rate and rhythm. S1 and S2 noted. No systolic or diastolic murmur auscultated. No JVD noted. No S3 or S4 noted. GASTROINTESTINAL: Soft, round, abdomen is diffusely mildly tender to palpation, no signs of peritonitis, no abdominal distention. INTEGUMENTARY: No cyanosis. No jaundice. No rashes noted. No cellulitis noted. EXTREMITIES: 2+ peripheral pulses. No evidence of peripheral edema. No calf tenderness noted. NEUROLOGIC: Cranial nerves II-XII intact. PSYCHIATRIC: Awake, alert, and oriented X 3. Appropriate affect. Intact judgement and insight. (Dakota Bardales) Course Vital Signs 10/21/24 10/21/24 13:33 19:09 Temperature 97.9 F 97.8 F Pulse Rate 97 92 Respiratory 22 18 Rate Blood Pressure 106/70 112/80 O2 Sat by Pulse 97 100 Oximetry Medical Decision Making - Lab Data Result diagrams: 10/21/24 14:56 10/21/24 15:43 <Dakota Bardales - Last Filed: 10/21/24 16:27> - Lab Data Result diagrams: 10/21/24 14:56 10/21/24 15:43 <Myra Walter - Last Filed: 10/22/24 11:14> - Medical Decision Making Was pt. sent in by a medical professional or institution (, [employer], BIOINFORMATICS RESEARCH TECHNICIAN, urgent care, hospital, or jail...) When possible be specific @ -No Did you speak to anyone other than the patient for history (EMS, parent, family, police, friend...)? What history was obtained from this source @ -No Did you review nursing and triage notes (agree or disagree)? Why? @ -I reviewed and agree with nursing and triage notes Were old charts reviewed (outside hosp., previous admission, EMS record, old EKG, old radiological studies, urgent care reports/EKG's, jail records)? Report findings @ -No old charts were reviewed Differential Diagnosis? @ -Viral gastroenteritis, C. difficile infection, pancreatitis, gastritis, stomach ulcer EKG interpreted by me (3pts min.). @ -As above X-rays interpreted by me (1pt min.). @ -None done CT interpreted by me (1pt min.). @ -None done U/S interpreted by me (1pt. min.). @ -None done What testing was considered but not performed or refused? (CT, X-rays, U/S, labs)? Why? @ -None What meds were considered but not given or refused? Why? @ -None Did you discuss the management of the patient with other professionals (professionals i.e. [employer] Wolf, BIOINFORMATICS RESEARCH TECHNICIAN, lab, RT, psych nurse, group social worker, ceo & board director, teacher, parking officer, dependency case manager)? Give summary @ -Discussed with Dr. Walter Was smoking cessation discussed for >3mins.? @ -No Was critical care preformed (if so, how long)? @ -No Were there social determinants of health that impacted care today? How? (Homelessness, low income, unemployed, alcoholism, drug addiction, transportation, low edu. Level, literacy, decrease access to med. care, detention, rehab)? @ -No Was there de-escalation of care discussed even if they declined (Discuss DNR or withdrawal of care, Hospice)? DNR status @ -No What co-morbidities impacted this encounter? (DM, HTN, Smoking, COPD, CAD, Cancer, CVA, ARF, Chemo, Hep., AIDS, mental health diagnosis, sleep apnea, morbid obesity)? @ -GERD, hypertension, osteoarthritis, asthma, history of diverticulitis, history of cholecystectomy Was patient admitted / discharged? Hospital course, mention meds given and route, prescriptions, significant lab abnormalities, going to OR and other pertinent info. @ -69-year-old female with GERD, hypertension, osteoarthritis, history of asthma, diverticulitis and cholecystectomy presented to the ER with diarrhea for the past week. Patient has been having watery diarrhea up to 15-20 episodes per day for the past week. CBC was unremarkable. A 1 L bolus normal saline was given in the ED. Pending lab results. I have signed off this patient to Dr. Walter. Undiagnosed new problem with uncertain prognosis? @ -No Drug Therapy requiring intensive monitoring for toxicity (Heparin, Nitro, Insulin, Cardizem)? @ -No Were any procedures done? @ -No Diagnosis/symptom? @ -Viral gastroenteritis Acute, or Chronic, or Acute on Chronic? @ -Acute Uncomplicated (without systemic symptoms) or Complicated (systemic symptoms)? @ -Uncomplicated Side effects of treatment? @ -No Exacerbation, Progression, or Severe Exacerbation? @ -No Poses a threat to life or bodily function? How? (Chest pain, [place], [place], pneumonia, PE, COPD, DKA, ARF, appy, cholecystitis, CVA, Diverticulitis, Homicidal, Suicidal, threat to staff... and all critical care pts) @ -No (Jeffy,Dakota) I personally saw the patient and performed the critical portion of the service. I discussed the patient care with the resident physician. I directed management, care planning and final disposition of the patient. This includes, but not limited to, review of all lab work, radiological studies, EKG's, consultations, vital signs, and nursing notes. U/S interpreted by me (1 pt min.) @Patient does appear to have a mildly dilated common bile duct 1.4 cm agree of radiologist interpretation Briefly this is a 69-year-old female presenting today for 4 days of loose stools that seem to occur after eating a subsandwich with alvarez that she thinks may have been spoiled. Episodes of diarrhea are decreasing. They are nonbloody. On my assessment patient is resting comfortably she is well-appearing in no acute distress. He does states she has some crampy abdominal pain on the right side of her abdomen, palpation of the abdomen she does have right upper quadrant tenderness without significant guarding. Though she has had a prior cholecystectomy, will obtain ultrasound right upper quadrant to assess for common bile duct given AST/ALT are mildly elevated the total bilirubin is within normal limits. Ultrasound resulted with dilated common bile duct of 1.4 cm. This is above normal limits for patient's age. This was compared to an ultrasound performed in January 2024 when the common bile duct was 1.0 cm. My reassessment patient is resting comfortably and she would like to go home and take care of her dog. I discussed with her ultrasound findings and she states she no longer has right upper quadrant pain and has not had any episodes of emesis. Given patient is tolerating p.o. intake, has a normal total bilirubin, and pain has resolved I feel discharge is reasonable at this time. Patient was advised to follow-up with her doctor regarding slight elevation in LFTs, for recheck. I discussed with patient importance of remaining hydrated with plenty of clear fluids as well as strict return precautions. In my medical judgment there is currently no evidence of an immediate life- threatening or surgical condition. Discharge is therefore indicated at this time. Discharge treatment instructions, follow up instructions, and appropriate emergency department return precautions were discussed with the patient and/or medical decision maker. Patient and/or medical decision maker expressed understanding of and agreed with the treatment plan, follow up instructions, and emergency department return precaution. All patient's and/or medical decision maker's questions were answered. The patient was instructed to return to the ED for any changes in symptoms, per sistent symptoms, inability to obtain proper follow-up or for any further concerns. Patient received verbal and written instructions for this condition. Critical care time of 0 minutes excluding separately billable procedures was spent in conjunction with critical care activities provided by the Resident and Attending simultaneously. I was present during no procedures for all critical portions of the procedure and as immediately available to furnish service during the entire procedure. (Myra Walter) - Lab Data Lab Results 10/21/24 10/21/24 10/21/24 Range/Units 14:56 15:43 16:26 WBC 5.8 (3.8-10.6) k/uL RBC 5.07 (3.80-5.40) m/uL Hgb 12.6 (11.4-16.0) gm/dL Hct 40.2 (34.0-46.0) % MCV 79.4 L (80.0-100.0) fL MCH 24.9 L (25.0-35.0) pg MCHC 31.3 (31.0-37.0) g/dL RDW 13.9 (11.5-15.5) % Plt Count 426 (150-450) k/uL MPV 6.5 Neutrophils % 62 % Lymphocytes % 19 % Monocytes % 10 % Eosinophils % 6 % Basophils % 0 % Neutrophils # 3.6 (1.3-7.7) k/uL Lymphocytes # 1.1 (1.0-4.8) k/uL Monocytes # 0.6 (0-1.0) k/uL Eosinophils # 0.3 (0-0.7) k/uL Basophils # 0.0 (0-0.2) k/uL Hypochromasia Slight Sodium 135 L (137-145) mmol/L Potassium 4.1 (3.5-5.1) mmol/L Chloride 101 (98-107) mmol/L Carbon Dioxide 24 (22-30) mmol/L Anion Gap 10 mmol/L BUN 19 H (7-17) mg/dL Creatinine 0.97 (0.52-1.04) mg/dL Est GFR (CKD-EPI)AfAm 69 (>60 ml/min/1.73 sqM) Est GFR (CKD-EPI)NonAf 60 (>60 ml/min/1.73 sqM) Glucose 133 H (74-99) mg/dL Calcium 9.0 (8.4-10.2) mg/dL Total Bilirubin 0.8 (0.2-1.3) mg/dL AST 49 H (14-36) U/L ALT 75 H (4-34) U/L Alkaline Phosphatase 121 (38-126) U/L Total Protein 6.7 (6.3-8.2) g/dL Albumin 4.1 (3.5-5.0) g/dL Amylase <30 L (30-110) U/L Lipase 91 (23-300) U/L Urine Color Yellow Urine Appearance Turbid H (Clear) Urine pH 6.0 (5.0-8.0) Ur Specific [place] 1.032 (1.001-1.035) Urine Protein 1+ H (Negative) Urine Glucose (UA) Negative (Negative) Urine Ketones Negative (Negative) Urine Blood Negative (Negative) Urine Nitrite Negative (Negative) Urine Bilirubin 1+ H (Negative) Urine Urobilinogen 2.0 (<2.0) mg/dL Ur Leukocyte Esterase Negative (Negative) Ur Squamous Epith Cells 1 (0-4) /hpf Urine Mucus Many H (None) /hpf Disposition <Dakota Bardales - Last Filed: 10/21/24 16:27> Is patient prescribed a controlled substance at d/c from ED?: No <Myra Walter - Last Filed: 10/22/24 11:14> Clinical Impression: Gastroenteritis, Diarrhea, Elevated LFTs Disposition: HOME SELF-CARE Condition: Stable Instructions (If sedation given, give patient instructions): Acute Diarrhea (ED) Additional Instructions: Every disease is a spectrum and a small chance still exists that a serious condition could develop, for this reason, please monitor yourself closely for new, changing or worsening symptoms, symptoms that persist beyond another 48 hours, black or bloody stools, worsening symptoms, return of abdominal pain, vomiting blowing of your eyes, fever, inability to tolerate/keep down fluids or your medications, inability to follow up with outpatient providers as instructed and should you experience these symptoms or should you have any further concerns for your wellbeing please return to the ED or call 911 immediately. Please drink plenty of clear fluids to remain hydrated. PLEASE call your primary care physician as soon as possible to arrange / discuss plan for followup appointment. Appointment in the next 1-3 days is strongly e ncouraged if possible. Please follow-up with your doctor regarding elevated liver enzymes for recheck. PLEASE let us know here before you leave if there is anything further we can do to be of any assistance. Take care and feel Better! Referrals: Solomon Obrien, [Primary Care Provider] - 1-2 days
[2024-10-21] MEDS: SODIUM CHLORIDE 0.9% 1,000 ML IV ONE (14:57)
[2024-10-21 15:12] LABS: Basophils % (A) 0 %; Eosinophils # (A) 0.3 k/uL (0-0.7); Eosinophils % (A) 6 %; HCT 40.2 % (34.0-46.0); HGB 12.6 gm/dL (11.4-16.0); Hypochromasia Slight; Lymphocytes # (A) 1.1 k/uL (1.0-4.8); Lymphocytes % (A) 19 %; MCH 24.9 pg (25.0-35.0); MCHC 31.3 g/dL (31.0-37.0); MCV 79.4 fL (80.0-100.0); Mean Platelet Volume 6.5; Monocytes # (A) 0.6 k/uL (0-1.0); Monocytes % (A) 10 %; Neutrophils # (A) 3.6 k/uL (1.3-7.7); Neutrophils % (A) 62 %; Platelet Count 426 k/uL (150-450); RBC 5.07 m/uL (3.80-5.40); RDW 13.9 % (11.5-15.5); WBC 5.8 k/uL (3.8-10.6)
[2024-10-21 16:14] LABS: ALT 75 U/L (4-34); AST 49 U/L (14-36); African American GFR (CKD) 69 (>60 ml/min/1.73 sqM); Albumin 4.1 g/dL (3.5-5.0); Alkaline Phosphatase 121 U/L (38-126); Amylase <30 U/L (30-110); Anion Gap 10 mmol/L; Blood Urea Nitrogen 19 mg/dL (7-17); Carbon Dioxide 24 mmol/L (22-30); Chloride 101 mmol/L (98-107); Glucose 133 mg/dL (74-99); Lipase 91 U/L (23-300); Non-African American GFR(CKD) 60 (>60 ml/min/1.73 sqM); Potassium 4.1 mmol/L (3.5-5.1); Sodium 135 mmol/L (137-145); Total Bilirubin 0.8 mg/dL (0.2-1.3); Total Protein 6.7 g/dL (6.3-8.2)
[2024-10-21 16:42] LABS: Appearance,Urine Turbid (Clear); Bilirubin,Urine 1+ (Negative); Blood,Urine Negative (Negative); Color,Urine Yellow; Glucose,Urine (UA) Negative (Negative); Ketones,Urine Negative (Negative); Leukocyte Esterase,Urine Negative (Negative); Mucus,Urine Many /hpf; Nitrite,Urine Negative (Negative); Protein,Urine 1+ (Negative); Specific Gravity,Urine 1.032 (1.001-1.035); Squamous Epithelial Cell,Urine 1 /hpf (0-4)
--- NOTE | 2024-10-21 18:58 | US ---
EXAMINATION TYPE: US abdomen limited DATE OF EXAM: 10/21/2024 COMPARISON: US 02/18/24 CLINICAL INDICATION: Female, 69 years old with history of elevated LFTs, prior isela, RUQ pain, any C BD dil?; patient states diarrhea and abd pain for 1 week. hx cholecystectomy TECHNIQUE: Grayscale and color Doppler imaging of the right upper quadrant was performed. FINDINGS: EXAM MEASUREMENTS: Liver Length: 13.0 cm Gallbladder Wall: Surgically absent cm CBD: 1.4 cm Right Kidney: 11.1 x 4.8 x 5.2 cm BUS STARTER NOTES:slightly limited due to overlying bowel gas and patient body habitus Pancreas: portions obscured by bowel gas, panc duct visualized= 3mm Liver: appears coarse in echotexture with increased echogenicity Gallbladder: Surgically absent Evidence for sonographic Terrazas's sign: No CBD: mildly dilated Right Kidney: 1.5cm hyperechoic area seen previously measured 1.2cm IMPRESSION: 1. Hepatic steatosis. 2. 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 3. Post cholecystectomy changes. Mild prominence of the common bile duct. [facility], , 10/21/2024 6:55 PM
[2024-10-21 19:10] VITALS: BP 112/80; PULSE 92; RESP 18; TEMP 97.8
== END 2024-10-21 19:36 ==
LOC: EC 13:18
DX: A08.4 Viral intestinal infection, unspecified (principal); R74.01 Elevation of levels of liver transaminase levels; K21.9 Gastro-esophageal reflux disease without esophagitis; I10 Essential (primary) hypertension; M19.90 Unspecified osteoarthritis, unspecified site; K57.32 Diverticulitis of large intestine without perforation or abscess without bleeding; Z90.49 Acquired absence of other specified parts of digestive tract; Z88.0 Allergy status to penicillin; Z88.1 Allergy status to other antibiotic agents; Z88.5 Allergy status to narcotic agent
CPT/HCPCS: 36415; 76705; 80053; 81001; 82150; 83690; 85025; 96360; 96361; 99284

== ENCOUNTER → 2024-10-21 | Outpatient (CLI) | payer MEDICARE ==
[2024-10-21 22:38] LABS: BUN/Creat Ratio 15.55 Ratio (12.00-20.00); Blood Urea Nitrogen 17.1 mg/dL (9.0-27.0); Calcium 9.5 mg/dL (8.7-10.3); Carbon Dioxide 21.8 mmol/L (21.6-31.8); Chloride 102 mmol/L (96-109); Glucose 123 mg/dL (70-110); Potassium 4.4 mmol/L (3.5-5.5); Sodium 137 mmol/L (135-145)
== END | disposition home or self-care (01) ==
LOC: LABWHC1 12:54
PROVIDERS: ATTEND Internal Medicine
DX: E87.1 Hypo-osmolality and hyponatremia (principal)
CPT/HCPCS: 36415; 80048; 82533; 83930

== ENCOUNTER → 2024-10-26 | Outpatient (CLI) | payer MEDICARE ==
--- NOTE | 2024-10-26 15:20 | MM ---
Reason for Exam: Follow-up at short interval from prior study. Last screening mammogram was performed 7 month(s) ago. Patient History: Menarche at age 10. First Full-Term at age 19. Left ovary removed at age 47. Right ovary removed at age 47. Hysterectomy at age 47. Postmenopausal. Breast cancer, left, age 66. Breast cancer, left, age 66. Previous chest radiation therapy at age 67. 04/04/2022, Lumpectomy on the Left side. 04/04/2022, Malignant MG pre op needle loc LT on the left side. 02/06/2022, Malignant US biopsy breast VAD LT on the left side. 2021, Radiation Therapy on the left side. Sister had breast cancer, age 71. Prior Study Comparison: 10/11/2022 Bilateral MG 3D screening mammo w/cad, [facility]. 04/14/2023 Bilateral MG 3D diag mammo w/cad [facility], [facility]. 04/19/2024 Bilateral MG 3D diag mammo w/cad [facility], [facility]. Tissue Density: The breasts are heterogeneously dense, which may obscure small masses. Findings: Analyzed By CAD. Stable postoperative changes noted left breast with prior lumpectomy. There is distortion as well as calcifications within a traumatic oil cyst. Disorganized breast parenchyma is seen on the right compatible with history of reduction mammoplasty. No definitive mass is seen at the site of clinical concern. Partially calcified traumatic oil cysts noted at the 2:00 position right breast as well as a noncalcified traumatic oil cyst laterally. Ultrasound is recommended of the upper half of the right breast. Overall Assessment: Incomplete: need additional imaging evaluation, BI-RAD 0 Management: Diagnostic Breast Ultrasound of the right breast. . Results were given to the patient verbally at the time of exam. Patient should continue monthly self-breast exams. A clinical breast exam by your physician is recommended on an annual basis. This exam should not preclude additional follow-up of suspicious palpable abnormalities. Note on Juliana scores and lifetime risk: 1. A Juliana score greater than 3% is considered moderate risk. If this is the case, consider specialist referral to assess eligibility for a risk reducing agent. 2. If overall lifetime risk for the development of breast cancer is 20% or higher, the patient may qualify for future screening with alternating mammogram and breast MRI. [facility], , 10/26/2024 3:17 PM. Electronically signed and approved by: John Hillman M.D. Radiologis
--- NOTE | 2024-10-27 07:29 | USB ---
Reason for Exam: Clinical finding. Patient History: Menarche at age 10. First Full-Term at age 19. Left ovary removed at age 47. Right ovary removed at age 47. Hysterectomy at age 47. Postmenopausal. Breast cancer, left, age 66. Breast cancer, left, age 66. Previous chest radiation therapy at age 67. 04/04/2022, Lumpectomy on the Left side. 04/04/2022, Malignant MG pre op needle loc LT on the left side. 02/06/2022, Malignant US biopsy breast VAD LT on the left side. 2021, Radiation Therapy on the left side. Sister had breast cancer, age 71. Prior Study Comparison: 10/11/2022 Bilateral MG 3D screening mammo w/cad, [facility]. 04/14/2023 Bilateral MG 3D diag mammo w/cad [facility], [facility]. 04/19/2024 Bilateral MG 3D diag mammo w/cad [facility], [facility]. 04/23/2024 Right US breast limited [facility], [facility]. Findings: The upper section of the breast of the right breast, the axilla of the right breast and the retroareolar of the right breast were scanned. The 1:00. There is mixed hypoechoic lesion with some mural calcification suggested. This is felt to reflect traumatic oil cyst measuring 1.5 x 0.9 x 0.9 cm. There appears to be extension to the 2:00 position 4 cm from the nipple is an additional measurement of 1.3 cm. Findings overall appear stable. Continued follow-up to assess for stability is advised.. Overall Assessment: Probably benign, BI-RAD 3 Management: Diagnostic Breast Ultrasound of the right breast in 6 months. A clinical breast exam by your physician is recommended on an annual basis and results should be correlated with mammographic findings. This exam should not preclude additional follow-up of suspicious palpable abnormalities. Results were given to the patient verbally at the time of exam. [facility], , 10/27/2024 7:25 AM. Electronically signed and approved by: John Hillman M.D. Radiologis
== END | disposition home or self-care (01) ==
LOC: RADMAMWWP 14:27
PROVIDERS: ATTEND Internal Medicine
DX: R92.8 Other abnormal and inconclusive findings on diagnostic imaging of breast (principal); R92.333 Mammographic heterogeneous density, bilateral breasts; R92.1 Mammographic calcification found on diagnostic imaging of breast; Z78.0 Asymptomatic menopausal state; Z85.3 Personal history of malignant neoplasm of breast; Z80.3 Family history of malignant neoplasm of breast
CPT/HCPCS: 77062; 77066

== ENCOUNTER → 2024-11-12 | Outpatient (CLI) | payer MEDICARE ==
--- NOTE | 2024-11-12 12:49 | MR ---
EXAMINATION TYPE: MR lumbar spine wo con DATE OF EXAM: 11/12/2024 11:11 AM COMPARISON: None. CLINICAL INDICATION: Female, 69 years old with history of M47.816 SPONDYLOSIS W/O MYELOPATHY OR RADIC ULOPATH, Chronic lower back pain, in the center. TECHNIQUE: Multiplanar, multisequence images of the lumbar spine were acquired without IV contrast. FINDINGS: There is dextroconvex curvature of the lumbar spine. Vertebral body heights are preserved. There is advanced hypertrophic facet arthropathy at L4-L5 along with ligamentum flavum thickening and degenerative grade 1 anterolisthesis. There is moderate degenerative disc disease here with desiccated, narrowed and bulging disc. Some mix ed Modic endplate change at this level with a moderate type I change towards the right. Otherwise, mild degenerative disc disease with disc desiccation and minimal disc bulging elsewhere th roughout the lumbar spine. Remaining alignment is maintained. Fatty matrix hemangioma within the S1 vertebral body. Conus medullaris is normal. Changes result in overall moderate focal spinal canal stenosis at L4/L5 with moderate left and mild-t o-moderate right neuroforaminal stenosis here. On the right, additional variable mild neuroforaminal narrowing at other levels. On the left, mild neuroforaminal stenosis at L2-L3. Incidental 4.3 cm duodenal diverticulum from the second portion projecting inferiorly. IMPRESSION: 1. Moderate to severe degenerative disc disease L4-L5 with some edematous Modic type I endplate durán e towards the right. 2. There is also advanced hypertrophic facet arthropathy with ligamentum flavum thickening resulting in grade 1 anterolisthesis here at L4-L5. 3. Overall changes contribute to a moderate focal spinal canal stenosis with moderate left and mild-t o-moderate right neuroforaminal stenosis. 4. Additional variable mild neuroforaminal narrowing at additional levels. 5. Dextroconvex curvature of the lumbar spine. [facility], , 11/12/2024 12:47 PM
== END | disposition home or self-care (01) ==
LOC: RADMRIMAIN 10:14
PROVIDERS: ATTEND Orthopaedic Surgery
DX: M48.061 Spinal stenosis, lumbar region without neurogenic claudication (principal); M51.369 Other intervertebral disc degeneration, lumbar region without mention of lumbar back pain or lower extremity pain; M47.816 Spondylosis without myelopathy or radiculopathy, lumbar region; M41.86 Other forms of scoliosis, lumbar region
CPT/HCPCS: 72148

== ENCOUNTER → 2024-12-07 | Outpatient (CLI) | payer MEDICARE ==
[2024-12-07 14:17] VITALS: BP 140/83; PULSE 77; RESP 17
--- NOTE | 2024-12-07 15:11 | P.PAINPG ---
Objective - Vital Signs Vital signs: Vital Signs Temp Pulse 77 12/07/24 14:08 Resp 17 12/07/24 14:08 BP 140/83 12/07/24 14:08 Pulse Ox 99 12/07/24 14:08 FiO2 Intake & Output 12/06/24 12/07/24 12/07/24 18:59 06:59 18:59 Weight 80.739 kg PQRS Measure Charge Sheet Mode of Arrival: Ambulatory Comment: HISTORY OF PRESENT ILLNESS: A 69 yr old female as a referral from [facility] presents today w severe and chronic LBP > 1 yr secondary to radiculopathy, spondylosis and facet arthropathy without myelopathy for evaluation. Pt states pain level is provoked at 9 /10 in intensity, constant, localized in the lumbar spine, predominantly axial, burning in character w occasional shooting pain towards the BLEs. Pain is provoked by bending. Pain is alleviated by PT x 2 wks which ended in Jul 2024 which provoked pain, physician guided home stretches daily since Jul 2024, heat, medications, repositioning and rest . Oswestry axial pain score at 32. PMH: OA, Asthma, Cancer, Cataracts, GERD, HTN, Hypothyroidism, Iron Deficiency Anemia, MDD/ Anxiety PSH: L Breast CA w Masectomy, Cholecystectomy, Hysterectomy, BL Knee Replacement, BL CTR, R Shoulder Surgery, Tonsillectomy, Colonoscopy SH: Never smoker, Daily ETOH use, No illicit drug use FH: Mo- No Reported History. Sis- Breast CA All: See list Medications include Ibu REVIEW OF ORGAN SYSTEMS: CONSTITUTIONAL: No fevers or chills. No recent weight loss. NEUROLOGICAL: + numbness and tingling along the distal extremities. No seizure disorders or headaches. MUSCULOSKELETAL: + pain PSYCHIATRIC: Denies current depression or suicidal thoughts. Physical Examinations : Constitutional : Cooperative , not in acute distress . Neurologic : Cranial nerve II to XII intact. No focal neurological deficits. Psychiatric : alert & oriented x 3. Matching mood & appropriate affect. Judgment & insight intact. Musculoskeletal : Cervical Spine Motor strength in the deltoid and biceps: Normal right side. Normal Left side Motor strength biceps and the wrist extensors: Normal right side . Normal left side Motor strength in the triceps muscle: Normal right side. Normal left side Deep tendon reflexes: Normal at the biceps. Normal at Brachioradialis. Normal at triceps Vertebral body tenderness to deep palpation over Cervical facet loading test: positive bilaterally Spurling test: positive bilaterally Neck distraction test: positive bilaterally Nash sign: positive bilaterally Lumbar spine Motor strength lower extremities ,thigh and legs 5/5 Right side , 5/5 Left side Deep tendon reflexes : Normal Knee Jerk. Normal Ankle Jerk Vertebral body tenderness over L4 Zamora Test positive BL L4-L5 Lumbar facet Loading Test: positive Right / positive Left Range of motion of the lumbar spine Flexion 30 degrees, extension 10 degrees Straight Leg Raise test: Left/ Right positive at degrees Juanita test: positive right / positive left. Severe tenderness over the Sacroiliac joint on the Right / Left sides Gaenslen test: positive bilaterally Seated flexion test: positive bilaterally. Sacral spine : Severe tenderness over the Sacroiliac joint: right side / left side Range of motion: Flexion of the lumbar spine <60 degrees Range of motion: Extension of the lumbar spine <20 degrees Gaenslen's Test positive Juanita test: positive right side / left side Thigh Thrust Test Sacral Thrust Test Imaging: MRI non contrast lumbar spine from 11/12/24 reviewed Assessment/ Plan : L4-L5 radiculopathy Recommendation of . Risks, benefits of procedure discussed and patient verbalized understanding. Admits to anti- coagulant use or medical history of diabetes. Protocol for discontinuation/ continuation of medications keyla procedure discussed. Minimal anesthesia provided, if clinically indicated, consisting of Versed and Fentanyl. All questions answered. I have spent greater than 30 minutes on patient care today. Dr Liang was available by phone for the evaluation of this patient. The time was used to review the medical records including relevant urine studies and Prescription history (MAPs), review of the available imaging, evaluation and examination of the patient, coordination of care with the medical staff and if applicable referring physicians, as well as creation of the medical record - Pain Location Lower Back Non-Pharmacological Interventions: Heat Pharmacological Interventions: Medication PQRS Narrative: Blood Pressure 140/83 Pain Intensity [Lower Back] 9 Scale Used Numeric (1 - 10) Hx Alcohol Use (MH) Yes Home Medications: Ambulatory Orders FLUoxetine HCL 40 mg PO DAILY 05/29/21 Fexofenadine HCl [Luisana Allergy] 180 mg PO DAILY 05/29/21 Levothyroxine Sodium [Synthroid] 50 mcg PO DAILY 05/29/21 Montelukast [Singulair] 10 mg PO HS 05/29/21 amLODIPine [Norvasc] 10 mg PO DAILY 05/29/21 buPROPion [Wellbutrin] 75 mg PO DAILY 05/29/21 Losartan [Cozaar] 50 mg PO DAILY #30 tab 05/31/21 methocarbamoL [Methocarbamol] 500 mg PO TID 01/30/22 hydrOXYzine HCL [Atarax] 50 mg PO TID PRN #15 tab 03/23/22 Albuterol Inhaler [Ventolin Hfa Inhaler] 1 - 2 puff INHALATION Q6H PRN 06/26/23 Alendronate Sodium [Fosamax] 70 mg PO WEEKLY 06/26/23 Anastrozole [Arimidex] 1 mg PO DAILY 06/26/23 Cyanocobalamin (Vitamin B-12) [Vitamin B-12] 1,000 mcg PO DAILY 06/26/23 Fluticasone Nasal [place] [Flonase Nasal [place]] 1 spray EA NOSTRIL DAILY 06/26/23 Ibuprofen [Motrin Ib] 400 mg PO BID PRN 06/26/23 Meloxicam [Mobic] 15 mg PO DAILY 06/26/23 Multivit/Folic Acid/Vit K1 [One-A-Day Women's 50 Plus Tab] 1 each PO DAILY 06/26/23 Omeprazole 20 mg PO BID 06/26/23 Potassium Chloride 10 meq PO DAILY 06/26/23 Controlled Substance Measures - Controlled Substance Measures Is patient prescribed a controlled substance at discharge?: No
== END ==
LOC: PNWHC3 14:02
PROVIDERS: ATTEND Specialist
DX: M47.26 Other spondylosis with radiculopathy, lumbar region (principal); Z88.0 Allergy status to penicillin; Z88.1 Allergy status to other antibiotic agents; Z88.5 Allergy status to narcotic agent
CPT/HCPCS: 99202

== ENCOUNTER → 2025-01-20 | Outpatient (CLI) | payer MEDICARE ==
[2025-01-20 14:14] VITALS: BP 148/63; PULSE 85; RESP 16; TEMP 97.8
--- NOTE | 2025-01-20 15:21 | P.PAINPG ---
Objective - Vital Signs Vital signs: Intake & Output 01/19/25 01/20/25 01/20/25 18:59 06:59 18:59 Weight 83.915 kg PQRS Measure Charge Sheet Comment: HISTORY OF PRESENT ILLNESS: A 69 yr old female presents today w severe and chronic LBP > 1 yr secondary to radiculopathy, spondylosis and facet arthropathy without myelopathy for evaluation s/p L paramedian SUE L3-L4 #1. Pt states she experienced 100 % pain relief x 2 wks s/p procedure. Pt states pain level is provoked at 4-6 /10 in intensity, intermittent, localized in the lumbar spine, predominantly axial, burning in character w occasional shooting pain towards the BL knees L> R. Pain is provoked by bending. Pain is alleviated by PT x 2 wks which ended in Jul 2024 which provoked pain, physician guided home stretches daily since Jul 2024, heat, medications, use of a walker, repositioning and rest . Oswestry axial pain score at 32. Interventional procedures include SUE L3-L4 x1 (01/19) Medications include Ibu. Daily ETOH use REVIEW OF ORGAN SYSTEMS: CONSTITUTIONAL: No fevers or chills. No recent weight loss. NEUROLOGICAL: + numbness and tingling along the distal extremities. No seizure disorders or headaches. MUSCULOSKELETAL: + pain PSYCHIATRIC: Denies current depression or suicidal thoughts. Physical Examinations : Constitutional : Cooperative , not in acute distress . Neurologic : Cranial nerve II to XII intact. No focal neurological deficits. Psychiatric : alert & oriented x 3. Matching mood & appropriate affect. Judgment & insight intact. Musculoskeletal : Cervical Spine Motor strength in the deltoid and biceps: Normal right side. Normal Left side Motor strength biceps and the wrist extensors: Normal right side . Normal left side Motor strength in the triceps muscle: Normal right side. Normal left side Deep tendon reflexes: Normal at the biceps. Normal at Brachioradialis. Normal at triceps Vertebral body tenderness to deep palpation over Cervical facet loading test: positive bilaterally Spurling test: positive bilaterally Neck distraction test: positive bilaterally Nash sign: positive bilaterally Lumbar spine Motor strength lower extremities ,thigh and legs 5/5 Right side , 5/5 Left side Deep tendon reflexes : Normal Knee Jerk. Normal Ankle Jerk Vertebral body tenderness over L4 Zamora Test positive BL L4-L5 Lumbar facet Loading Test: positive Right / positive Left Range of motion of the lumbar spine Flexion 30 degrees, extension 10 degrees Straight Leg Raise test: Left/ Right positive at degrees Juanita test: positive right / positive left. Severe tenderness over the Sacroiliac joint on the Right / Left sides Gaenslen test: positive bilaterally Seated flexion test: positive bilaterally. Sacral spine : Severe tenderness over the Sacroiliac joint: right side / left side Range of motion: Flexion of the lumbar spine <60 degrees Range of motion: Extension of the lumbar spine <20 degrees Gaenslen's Test positive Juanita test: positive right side / left side Thigh Thrust Test Sacral Thrust Test Imaging: MRI non contrast lumbar spine from 11/12/24 reviewed Assessment/ Plan : L4-L5 radiculopathy Recommendation of L paramedian SUE L4-L5 #2. Risks, benefits of procedure discussed and patient verbalized understanding. Admits to anti- coagulant use or medical history of diabetes. Protocol for discontinuation/ continuation of medications keyla procedure discussed. All questions answered. I have spent greater than 30 minutes on patient care today. Dr Liang was available by phone for the evaluation of this patient. The time was used to review the medical records including relevant urine studies and Prescription history (MAPs), review of the available imaging, evaluation and examination of the patient, coordination of care with the medical staff and if applicable referring physicians, as well as creation of the medical record - Pain Location Bilateral Lower Back Non-Pharmacological Interventions: Home Exercise, Physical Therapy, Stretching Pharmacological Interventions: Epidural, PRN Medication PQRS Narrative: Hx Alcohol Use (MH) Yes Home Medications: Ambulatory Orders FLUoxetine HCL 40 mg PO DAILY 05/29/21 Fexofenadine HCl [Luisana Allergy] 180 mg PO DAILY 05/29/21 Levothyroxine Sodium [Synthroid] 50 mcg PO DAILY 05/29/21 Montelukast [Singulair] 10 mg PO HS 05/29/21 amLODIPine [Norvasc] 10 mg PO DAILY 05/29/21 buPROPion [Wellbutrin] 75 mg PO DAILY 05/29/21 Losartan [Cozaar] 50 mg PO DAILY #30 tab 05/31/21 methocarbamoL [Methocarbamol] 500 mg PO TID 01/30/22 hydrOXYzine HCL [Atarax] 50 mg PO TID PRN #15 tab 03/23/22 Albuterol Inhaler [Ventolin Hfa Inhaler] 1 - 2 puff INHALATION Q6H PRN 06/26/23 Alendronate Sodium [Fosamax] 70 mg PO [place] 06/26/23 Anastrozole [Arimidex] 1 mg PO DAILY 06/26/23 Cyanocobalamin (Vitamin B-12) [Vitamin B-12] 1,000 mcg PO DAILY 06/26/23 Fluticasone Nasal [place] [Flonase Nasal [place]] 1 spray EA NOSTRIL DAILY 06/26/23 Ibuprofen [Motrin Ib] 400 mg PO BID PRN 06/26/23 Meloxicam [Mobic] 15 mg PO DAILY 06/26/23 Multivit/Folic Acid/Vit K1 [One-A-Day Women's 50 Plus Tab] 1 each PO DAILY 06/26/23 Omeprazole 20 mg PO BID 06/26/23 Potassium Chloride 10 meq PO DAILY 06/26/23 Sodium Chloride Tab 1 gm PO DAILY 12/27/24 diazePAM [Valium] 10 mg PO DAILY 1 Days #1 tab 01/20/25 Controlled Substance Measures - Controlled Substance Measures Is patient prescribed a controlled substance at discharge?: Yes When asked, does pt state using other controlled substances?: No If prescribed controlled substance>3 days was MAPS reviewed?: Prescribed <3 Days
== END | disposition home or self-care (01) ==
LOC: PNWHC3 14:02
PROVIDERS: ATTEND Specialist
DX: M47.26 Other spondylosis with radiculopathy, lumbar region (principal); Z88.0 Allergy status to penicillin; Z88.5 Allergy status to narcotic agent; Z88.1 Allergy status to other antibiotic agents
CPT/HCPCS: 99211

== ENCOUNTER 2025-02-15 11:51 | Day surgery (SDC) | payer MEDICARE ==
[2025-02-11 15:25] VITALS: BMI 31.8
[~2025-02-15 11:51] MED LIST changes: -LIDOCAINE 1% (10MG/ML) FOR IV START INTRADERMA PRN; -LIDOCAINE 1% INJ 10MG/ML (20 ML MDV) ONE; -PROPOFOL 10 MG/ML 20 ML VIAL IV ONE
[2025-02-15 13:31] VITALS: TEMP 97.5
[2025-02-15] MEDS ORDERED: IOPAMIDOL M300 15ML VIAL ONE (14:26)
[2025-02-15] MEDS ORDERED: methylPREDNISolone ACETATE 80 MG/ML 1 ML VIAL ONE (14:26)
[2025-02-15 14:49] VITALS: RESP 16
--- NOTE | 2025-02-15 14:51 | FL ---
EXAMINATION TYPE: FL guided pain mgmt statistic DATE OF EXAM: 02/15/2025 FLUOROSCOPY 16 sec [id number] .[id number] DAP dose 2 images are submitted. Lumbar epidural steroid injection. [facility], , 02/15/2025 2:49 PM
[2025-02-15 15:00] VITALS: BP 154/81; PULSE 86
--- NOTE | 2025-02-15 15:05 | P.PCN ---
Description of Procedure: PREOPERATIVE DIAGNOSIS: 1- Lumbar Degenerative Disc Diseases 2-Lumbar spondylosis with Facet arthropathy without myelopathy. 3-lumbar spinal stenosis 4-Lumber radiculopathy POSTOPERATIVE DIAGNOSIS: 1-lumbar degenerative disc disease. 2-lumbar spondylosis with facet arthropathy without myelopathy. 3-lumbar spinal stenosis. 4-Lumber radiculopathy PROCEDURE Injection of radio contrast material into L4-5 interspace, interpretation of epidurogram, injection of steroid at L4- 5 epidural space under fluoroscopic guidance. ANESTHESIA: Lidocaine 1% subcutaneously. In OR continuous pulse ox, EKG, blood pressure and verbal communication was maintained with the patient. EBL: Minimal PROCEDURE INDICATION: Before the procedure were discussed with the patient detailed procedure, alternatives, complications including infection, bleeding, nerve damage, paralysis all of which could be permanent. Patient understands and all questions were answered. PROCEDURE DESCRIPTION : After getting consent, patient in OR in prone position. Back was prepped with chlorhexidine and draped in sterile fashion. After injecting 10 mL of 1% lidocaine subcutaneously, a 20-gauge Tuohy needle was introduced at L4 5 interspace with loss of resistance technique using a syringe filled with air. Negative CSF, negative blood, negative paresthesia. Needle position was confirmed with AP and lateral view of the fluoroscope. After repeat negative aspiration 2 mL of Omnipaque 200 water soluble contrast was injected. Contrast was noted in the epidural space. No contrast was noted into intrathecal or intravascular space. After repeat negative aspiration 6 mL solution was injected intermittently which consists of 5 mL of preservative-free normal saline mixed with 1 mL of 80 mg Depo-Medrol. Needle was withdrawn intact. Skin was cleansed and Band-Aids was applied. DISPOSITION / PLANS: The patient tolerated the procedure well. No complication. The patient was placed in a supine position and transferred to the recovery area in a stable condition for observation. There was no evidence of lower extremity motor or sensory deficit after the procedure. Patient was discharged from the recovery room after meeting discharge criteria. Home discharge instructions were given to the patient by the staff. The patient was reexamined prior to discharge. The patient will schedule a follow up in the clinic in 2-4 weeks.
== END 2025-02-15 15:13 | disposition home or self-care (01) ==
LOC: ORPAIN 11:51
PROVIDERS: ATTEND Pain Medicine Interventional Pain Medicine
DX: M47.26 Other spondylosis with radiculopathy, lumbar region (principal); M48.061 Spinal stenosis, lumbar region without neurogenic claudication; M51.16 Intervertebral disc disorders with radiculopathy, lumbar region; Z88.1 Allergy status to other antibiotic agents; Z88.0 Allergy status to penicillin; Z88.8 Allergy status to other drugs, medicaments and biological substances
CPT/HCPCS: 62323; Q9967; J1010